=== PATIENT | female | born 1950 | race Caucasian/White ===

== ENCOUNTER 2020-12-24 17:23 | Inpatient (IN) | payer MEDICARE, BC ==
--- NOTE | 2020-12-24 17:34 | EDM.PDOC ---
<Matt Crockett - Last Filed: 12/24/20 18:56> ED HPI GENERAL MEDICAL PROBLEM - General Chief Complaint: Abdominal Pain Stated Complaint: EMS ARRIVAL Time Seen by Provider: 12/24/20 17:30 - History of Present Illness INITIAL COMMENTS - FREE TEXT/NARRATIVE: History of present illness: [] Patient been sick for for 5 days. She has nausea and vomiting started first. She is vomiting several times a day. She started having diarrhea yesterday and several episodes. Patient does not vomit any blood. She has diffuse abdominal pain that started in the upper abdomen as the lower abdomen. She has past history of diverticulitis. She responded to amoxicillin and Flagyl in the past. Review of systems: As per history of present illness and below otherwise all systems reviewed and negative. Past medical history: As per history of present illness and as reviewed below otherwise noncontributory. Surgical history: As per history of present illness and as reviewed below otherwise noncontributory. Social history: No reported history of drug or alcohol abuse. Family history: As per history of present illness and as reviewed below otherwise noncontributory. Physical exam: Constitutional - well developed, well-nourished and in no acute distress HEENT - normocephalic, no evidence of trauma - external nose and mouth normal - no mass in neck and no JVD - mucosae moist EYES - full EOM, PERRL, no icterus - no evidence of inflammation, injection, or drainage Respiratory - no respiratory distress, equal bilateral expansion, lungs clear to auscultation and no abnormal lung sounds Cardiovascular - Regular Rhythm with S1 and S2 appreciated and no murmur, gallop or rub. GI - abdomen soft without distension or organomegaly - normal bowel sounds - tender and guards both lower quadrants. Musculoskeletal no gross deformity of long bones or joints - no tenderness, swelling or edema Neurologic - Alert and oriented times four - CN II-XII grossly intact - motor sensory and coordination symmetrically normal Psychiatric - appropriate mood and affect with normal thought content Hematologic - No petechiae or purpura - mucosa appropriate color and sclera not pale - normal nail bed color and refill Integument - no rash or evidence of trauma - normal turgor Diagnostics: [] Therapeutics: [] Impression: [] Plan: [] Definitive disposition and diagnosis as appropriate pending reevaluation and review of above. abdomen Pain Score (Numeric/FACES): 9 - Related Data Allergies Allergy/AdvReac Type Severity Reaction Status Date / Time codeine Allergy Confusion Verified 12/24/20 17:31 lorazepam [From Ativan] Allergy Confusion Verified 12/24/20 17:31 meperidine [From Demerol] Allergy Confusion Verified 12/24/20 17:31 ondansetron [From Zofran] Allergy Itching Verified 12/24/20 17:31 Sulfa (Sulfonamide Allergy Rash Verified 12/24/20 17:31 Antibiotics) Home Meds: Home Meds Empagliflozin [Jardiance] 10 mg PO DAILY 12/24/20 [History] lisinopriL [Lisinopril] 5 mg PO DAILY 12/24/20 [History] Past Medical History HEENT History: Reports: Macular Degeneration Cardiovascular History: Reports: Hypertension Respiratory History: Reports: None Gastrointestinal History: Reports: Diverticulosis Genitourinary History: Reports: None 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: Musculoskeletal History: Reports: Fracture Neurological History: Reports: None Psychiatric History: Reports: None Endocrine/Metabolic History: Reports: Diabetes, Type II Hematologic History: Reports: None Immunologic History: Reports: None Oncologic (Cancer) History: Reports: None Dermatologic History: Reports: None - Infectious Disease History Infectious Disease History: Reports: Chicken Pox - Past Surgical History Head Surgeries/Procedures: Reports: None HEENT Surgical History: Reports: None Cardiovascular Surgical History: Reports: None Respiratory Surgical History: Reports: None GI Surgical History: Reports: Appendectomy Female Surgical History: Reports: Hysterectomy Musculoskeletal Surgical History: Reports: Other (See Below) Other Musculoskeletal Surgeries/Procedures:: 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 ED EXAM, GENERAL - Physical Exam Exam: See Below Free Text/Narrative:: My physical exam is in the HPI Course - Re-Assessments/Exams Free Text/Narrative Re-Assessment/Exam: 12/24/20 18:55 The patient was hypoxic when she fell asleep after the Dilaudid. Her oxygen saturation 98% on 2 L when she is stimulated. 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 Turned over to Dr. Rodriguez at the end of my shift. 12/24/20 18:56 Departure - Departure Disposition: Home, Self-Care 01 Clinical Impression: SBO (small bowel obstruction) Abdominal pain Qualifiers: Abdominal location: generalized Qualified Code(s): R10.84 - Generalized abdominal pain - Discharge Information Referrals: PCP,None [Primary Care Provider] - Forms: ED Department Discharge Sepsis Event Note (ED) - Evaluation Sepsis Screening Result: No Definite Risk <Keith Rodriguez - Last Filed: 12/24/20 20:04> Course - Vital Signs Last Recorded V/S: Last Vital Signs Temp 97.3 F 12/24/20 17:24 Pulse 67 12/24/20 19:57 Resp 13 12/24/20 19:57 BP 121/58 L 12/24/20 19:57 Pulse Ox 94 L 12/24/20 19:57 - Orders/Labs/Meds Orders: Active Orders 24 hr Category Date Time Status NPO Now [Nothing per Oral Now Diet] [DIET] Diet 12/25/20 Breakfast Ordered Saline Lock Insert [OM.PC] Stat Oth 12/24/20 17:41 Ordered Labs: Laboratory Tests 12/24/20 12/24/20 12/24/20 Range/Units 16:17 17:20 17:20 WBC 14.45 H (4.0-11.0) K/uL RBC 4.88 (4.30-5.90) M/uL Hgb 14.8 (12.0-16.0) g/dL Hct 41.9 (36.0-46.0) % MCV 85.9 (80.0-98.0) fL MCH 30.3 (27.0-32.0) pg MCHC 35.3 (31.0-37.0) g/dL RDW Std Deviation 41.3 (28.0-62.0) fl RDW Coeff of Brad 13 (11.0-15.0) % Plt Count 322 (150-400) K/uL MPV 9.70 (7.40-12.00) fL Neut % (Auto) 77.2 (48.0-80.0) % Lymph % (Auto) 16.5 (16.0-40.0) % [place] % (Auto) 5.5 (0.0-15.0) % Eos % (Auto) 0.7 (0.0-7.0) % Baso % (Auto) 0.1 (0.0-1.5) % Neut # (Auto) 11.2 H (1.4-5.7) K/uL Lymph # (Auto) 2.4 (0.6-2.4) K/uL [place] # (Auto) 0.8 (0.0-0.8) K/uL Eos # (Auto) 0.1 (0.0-0.7) K/uL Baso # (Auto) 0.0 (0.0-0.1) K/uL Nucleated RBC % 0.0 /100WBC Nucleated RBCs # 0 K/uL Sodium 138 (136-145) mmol/L Potassium 3.2 L (3.5-5.1) mmol/L Chloride 98 (98-107) mmol/L Carbon Dioxide 26.3 (21.0-32.0) mmol/L BUN 20 H (7.0-18.0) mg/dL Creatinine 0.7 (0.6-1.0) mg/dL Est Cr Clr Drug Dosing 60.98 mL/min Estimated GFR (MDRD) > 60.0 ml/min Glucose 169 H (74-106) mg/dL Lactic Acid 1.3 (0.4-2.0) mmol/L Calcium 9.3 (8.5-10.1) mg/dL Total Bilirubin 1.0 (0.2-1.0) mg/dL AST 17 (15-37) IU/L ALT 24 (14-63) IU/L Alkaline Phosphatase 117 H (46-116) U/L Total Protein 8.0 (6.4-8.2) g/dL Albumin 4.1 (3.4-5.0) g/dL Globulin 3.9 (2.6-4.0) g/dL Albumin/Globulin Ratio 1.1 (0.9-1.6) Lipase 87 (73-393) U/L Urine Color Urine Appearance Urine pH (5.0-8.0) Ur Specific [place] (1.001-1.035) Urine Protein (NEGATIVE) mg/dL Urine Glucose (UA) (NEGATIVE) mg/dL Urine Ketones (NEGATIVE) mg/dL Urine Occult Blood (NEGATIVE) Urine Nitrite (NEGATIVE) Urine Bilirubin (NEGATIVE) Urine Urobilinogen (<2.0) EU/dL Ur Leukocyte Esterase (NEGATIVE) SARS-CoV-2 RNA (RIC) (NEGATIVE) 12/24/20 12/24/20 Range/Units 18:04 19:41 WBC (4.0-11.0) K/uL RBC (4.30-5.90) M/uL Hgb (12.0-16.0) g/dL Hct (36.0-46.0) % MCV (80.0-98.0) fL MCH (27.0-32.0) pg MCHC (31.0-37.0) g/dL RDW Std Deviation (28.0-62.0) fl RDW Coeff of Brad (11.0-15.0) % Plt Count (150-400) K/uL MPV (7.40-12.00) fL Neut % (Auto) (48.0-80.0) % Lymph % (Auto) (16.0-40.0) % [place] % (Auto) (0.0-15.0) % Eos % (Auto) (0.0-7.0) % Baso % (Auto) (0.0-1.5) % Neut # (Auto) (1.4-5.7) K/uL Lymph # (Auto) (0.6-2.4) K/uL [place] # (Auto) (0.0-0.8) K/uL Eos # (Auto) (0.0-0.7) K/uL Baso # (Auto) (0.0-0.1) K/uL Nucleated RBC % /100WBC Nucleated RBCs # K/uL Sodium (136-145) mmol/L Potassium (3.5-5.1) mmol/L Chloride (98-107) mmol/L Carbon Dioxide (21.0-32.0) mmol/L BUN (7.0-18.0) mg/dL Creatinine (0.6-1.0) mg/dL Est Cr Clr Drug Dosing mL/min Estimated GFR (MDRD) ml/min Glucose (74-106) mg/dL Lactic Acid (0.4-2.0) mmol/L Calcium (8.5-10.1) mg/dL Total Bilirubin (0.2-1.0) mg/dL AST (15-37) IU/L ALT (14-63) IU/L Alkaline Phosphatase (46-116) U/L Total Protein (6.4-8.2) g/dL Albumin (3.4-5.0) g/dL Globulin (2.6-4.0) g/dL Albumin/Globulin Ratio (0.9-1.6) Lipase (73-393) U/L Urine Color YELLOW Urine Appearance CLEAR Urine pH 6.0 (5.0-8.0) Ur Specific [place] 1.010 (1.001-1.035) Urine Protein NEGATIVE (NEGATIVE) mg/dL Urine Glucose (UA) NEGATIVE (NEGATIVE) mg/dL Urine Ketones 15 H (NEGATIVE) mg/dL Urine Occult Blood NEGATIVE (NEGATIVE) Urine Nitrite NEGATIVE (NEGATIVE) Urine Bilirubin NEGATIVE (NEGATIVE) Urine Urobilinogen 0.2 (<2.0) EU/dL Ur Leukocyte Esterase NEGATIVE (NEGATIVE) SARS-CoV-2 RNA (RIC) NEGATIVE (NEGATIVE) Meds: Medications Discontinued Medications Generic Name Dose Route Start Last Admin Trade Name Anshu PRN Reason Stop Dose Admin Hydromorphone HCl 1 mg 12/24/20 17:42 12/24/20 17:52 Hydromorphone 2 Mg/Ml Syringe IVPUSH 12/24/20 17:43 1 mg ONETIME ONE Administration Sodium Chloride 1,000 mls @ 1,000 mls/hr 12/24/20 17:42 12/24/20 17:54 Normal Saline IV 12/24/20 18:41 1,000 mls/hr .Bolus ONE Administration Iopamidol 100 ml 12/24/20 18:55 12/24/20 18:56 Iopamidol 755 Mg/Ml 500 Ml Multipack Bottle IVPUSH 12/24/20 18:56 100 ml ONETIME STA Administration Metoclopramide HCl 10 mg 12/24/20 17:43 12/24/20 17:50 Metoclopramide 10 Mg/2 Ml Sdv IVPUSH 12/24/20 17:44 10 mg ONETIME ONE Administration Sodium Chloride 10 ml 12/24/20 17:41 12/24/20 17:54 Sodium Chloride 0.9% 10 Ml Syringe FLUSH 10 ml ASDIRECTED PRN Administration Keep Vein Open Sodium Chloride 2.5 ml 12/24/20 17:41 12/24/20 17:53 Sodium Chloride 0.9% 2.5 Ml Syringe FLUSH 2.5 ml ASDIRECTED PRN Administration Keep Vein Open - Re-Assessments/Exams Free Text/Narrative Re-Assessment/Exam: 12/24/20 20:03 CT scan with possible early SBO. I did communicate this with surgeon on-call Dr. Felipe. Since patient is still passing gas and with diarrhea recommends against NG tube at this point. Will admit for observation under hospitalist Dr. Felipe. Departure - Departure Time of Disposition: 20:03 Condition: Good Sepsis Event Note (ED) - Focused Exam Vital Signs: Vital Signs Temp Pulse Resp BP Pulse Ox 12/24/20 19:57 67 13 121/58 L 94 L 12/24/20 18:40 70 14 125/55 L 97 12/24/20 17:24 97.3 F 75 18 170/83 H 93 L - My Orders Last 24 Hours: My Active Orders 12/25/20 Breakfast NPO Now [Nothing per Oral Now Diet] [DIET] - Assessment/Plan Last 24 Hours: My Active Orders 12/25/20 Breakfast NPO Now [Nothing per Oral Now Diet] [DIET]
[2020-12-24] MEDS ORDERED: Sodium Chloride 0.9% 2.5 ML Syringe FLUSH PRN (17:41)
[2020-12-24] MEDS ORDERED: Sodium Chloride 0.9% 10 ML Syringe FLUSH PRN (17:41)
[2020-12-24] MEDS ORDERED: Sodium Chloride 0.9% 1,000 ML IV ONE ×2 (17:42→20:17)
[2020-12-24] MEDS ORDERED: HYDROmorphone 2 MG/ML Syringe IVPUSH ONE (17:42)
[2020-12-24] MEDS ORDERED: Metoclopramide 10 MG/2 ML SDV IVPUSH ONE (17:43)
[2020-12-24 18:17] LABS: BLOOD UREA NITROGEN,BUN 20 mg/dL (7.0-18.0); CARBON DIOXIDE,CO2 26.3 mmol/L (21.0-32.0); CHLORIDE,CL 98 mmol/L (98-107); GLUCOSE RANDOM 169 mg/dL (74-106); LIPASE 87 U/L (73-393); POTASSIUM,K 3.2 mmol/L (3.5-5.1); SODIUM,NA 138 mmol/L (136-145)
[2020-12-24] MEDS ORDERED: Iopamidol 755 MG/ML 500 ML Multipack Bottle IVPUSH STA (18:55)
--- NOTE | 2020-12-24 19:41 | CT ---
INDICATION: Nausea, vomiting and diarrhea. History of recurrent diverticulitis. TECHNIQUE: Axial images were obtained from the diaphragm to the pubic symphysis. Reformats were obtained in the coronal and sagittal plane. IV Contrast: 100 cc Isovue 370 Oral Contrast: None COMPARISON: None. FINDINGS: Lower chest: Bilateral breast implants. Trace discoid atelectasis right middle lobe. Liver: Diffusely decreased density without focal lesion. Gallbladder and bile ducts: Unremarkable. No stones or inflammation. No biliary dilatation. Spleen: Unremarkable. Normal in size without mass. Pancreas: Unremarkable. No mass or inflammation. Adrenal glands: Unremarkable. No nodules. Kidneys: Symmetric renal enhancement without hydronephrosis. Likely peripelvic cysts on the left with subcentimeter hypodensities within the right kidney which are too small for characterization although visually likely represent renal cysts. Vasculature: Atherosclerosis without abdominal aortic aneurysm. GI tract: The stomach is unremarkable. There are multiple dilated loops of proximal to mid small bowel with decompression of the distal small bowel. Transition is somewhat gradual with small amount of free fluid noted within the pelvis. Colon is decompressed. Mild colonic diverticulosis. Pelvis: Status post hysterectomy. Bones: Unremarkable for age. IMPRESSION: 1. Dilated loops of proximal to mid small bowel with decompressed distal small bowel suggesting a low-grade small bowel obstruction. Associated small amount of fluid within the pelvis. 2. Colonic diverticulosis. 3. Status post hysterectomy. Please note that all CT scans at this facility use dose modulation, iterative reconstruction, and/or weight-based dosing when appropriate to reduce radiation dose to as low as reasonably achievable. Dictated by Graham Shukla MD @ 12/24/2020 7:39:30 PM (Electronically Signed)
[2020-12-24] MEDS ORDERED: HYDROmorphone 1 MG/ML Syringe IVPUSH PRN (21:58)
--- NOTE | 2020-12-24 23:46 | PCM.HP.2 ---
H&P History of Present Illness - General Date of Service: 12/24/20 Admit Problem/Dx: Admission Diagnosis/Problem Admission Diagnosis/Problem Abdominal pain - History of Present Illness Initial Comments - Free Text/Narative: 70 yo female with pmh of DM and HTN who presented with four day history of diarrhea, nausea and abdominal pain. Patient describes the abdominal pain as diffuse burning across mid to lower abdomen. Patient denies and blood in stool or vomit. She denies any fevers or shortness of breath. CT scan of abdomen reported multiple dialated loops of small bowel suggestive of possible low grade small bowel obstruction abdomen Pain Score (Numeric/FACES): 9 - Related Data Allergies/Adverse Reactions: Allergies Allergy/AdvReac Type Severity Reaction Status Date / Time codeine Allergy Confusion Verified 12/24/20 17:31 lorazepam [From Ativan] Allergy Confusion Verified 12/24/20 17:31 meperidine [From Demerol] Allergy Confusion Verified 12/24/20 17:31 ondansetron [From Zofran] Allergy Itching Verified 12/24/20 17:31 Sulfa (Sulfonamide Allergy Rash Verified 12/24/20 17:31 Antibiotics) Home Medications: Home Meds Empagliflozin [Jardiance] 10 mg PO DAILY 12/24/20 [History] lisinopriL [Lisinopril] 5 mg PO DAILY 12/24/20 [History] Past Medical History HEENT History: Reports: Hard of Hearing, Macular Degeneration Cardiovascular History: Reports: Hypertension Respiratory History: Reports: None Gastrointestinal History: Reports: Diverticulosis Genitourinary History: Reports: None 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 History: Reports: Fracture Neurological History: Reports: None Psychiatric History: Reports: None Endocrine/Metabolic History: Reports: Diabetes, Type II Hematologic History: Reports: None Immunologic History: Reports: None Oncologic (Cancer) History: Reports: None Dermatologic History: Reports: None - Infectious Disease History Infectious Disease History: Reports: Chicken Pox - Past Surgical History Head Surgeries/Procedures: Reports: None HEENT Surgical History: Reports: None Cardiovascular Surgical History: Reports: None Respiratory Surgical History: Reports: None GI Surgical History: Reports: Appendectomy Female Surgical History: Reports: Hysterectomy Musculoskeletal Surgical History: Reports: Other (See Below) Other Musculoskeletal Surgeries/Procedures:: 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 Exam - Exam Exam: See Below - Vital Signs Vital Signs: Last Vital Signs Temp 36.3 C 12/24/20 22:00 Pulse 73 12/24/20 22:00 Resp 16 12/24/20 22:00 BP 145/70 H 12/24/20 22:00 Pulse Ox 93 L 12/24/20 22:00 Weight: 74.117 kg - Exam General: Alert, Oriented HEENT: Mucosa Moist & [place] Lungs: Clear to Auscultation, Normal Respiratory Effort Cardiovascular: Regular Rate, Regular Rhythm GI/Abdominal Exam: Normal Bowel Sounds, Soft, Non-Tender, No Distention Extremities: Non-Tender, No Pedal Edema Skin: Warm, Dry, Intact Neurological: No: Focal Deficit - Patient Data Lab Results Last 24 hrs: Laboratory Results - last 24 hr 12/24/20 12/24/20 12/24/20 Range/Units 16:17 17:20 17:20 WBC 14.45 H (4.0-11.0) K/uL RBC 4.88 (4.30-5.90) M/uL Hgb 14.8 (12.0-16.0) g/dL Hct 41.9 (36.0-46.0) % MCV 85.9 (80.0-98.0) fL MCH 30.3 (27.0-32.0) pg MCHC 35.3 (31.0-37.0) g/dL RDW Std Deviation 41.3 (28.0-62.0) fl RDW Coeff of Brad 13 (11.0-15.0) % Plt Count 322 (150-400) K/uL MPV 9.70 (7.40-12.00) fL Neut % (Auto) 77.2 (48.0-80.0) % Lymph % (Auto) 16.5 (16.0-40.0) % [place] % (Auto) 5.5 (0.0-15.0) % Eos % (Auto) 0.7 (0.0-7.0) % Baso % (Auto) 0.1 (0.0-1.5) % Neut # (Auto) 11.2 H (1.4-5.7) K/uL Lymph # (Auto) 2.4 (0.6-2.4) K/uL [place] # (Auto) 0.8 (0.0-0.8) K/uL Eos # (Auto) 0.1 (0.0-0.7) K/uL Baso # (Auto) 0.0 (0.0-0.1) K/uL Nucleated RBC % 0.0 /100WBC Nucleated RBCs # 0 K/uL Sodium 138 (136-145) mmol/L Potassium 3.2 L (3.5-5.1) mmol/L Chloride 98 (98-107) mmol/L Carbon Dioxide 26.3 (21.0-32.0) mmol/L BUN 20 H (7.0-18.0) mg/dL Creatinine 0.7 (0.6-1.0) mg/dL Est Cr Clr Drug Dosing 60.98 mL/min Estimated GFR (MDRD) > 60.0 ml/min Glucose 169 H (74-106) mg/dL Lactic Acid 1.3 (0.4-2.0) mmol/L Calcium 9.3 (8.5-10.1) mg/dL Total Bilirubin 1.0 (0.2-1.0) mg/dL AST 17 (15-37) IU/L ALT 24 (14-63) IU/L Alkaline Phosphatase 117 H (46-116) U/L Total Protein 8.0 (6.4-8.2) g/dL Albumin 4.1 (3.4-5.0) g/dL Globulin 3.9 (2.6-4.0) g/dL Albumin/Globulin Ratio 1.1 (0.9-1.6) Lipase 87 (73-393) U/L Urine Color Urine Appearance Urine pH (5.0-8.0) Ur Specific [place] (1.001-1.035) Urine Protein (NEGATIVE) mg/dL Urine Glucose (UA) (NEGATIVE) mg/dL Urine Ketones (NEGATIVE) mg/dL Urine Occult Blood (NEGATIVE) Urine Nitrite (NEGATIVE) Urine Bilirubin (NEGATIVE) Urine Urobilinogen (<2.0) EU/dL Ur Leukocyte Esterase (NEGATIVE) SARS-CoV-2 RNA (RIC) (NEGATIVE) 12/24/20 12/24/20 Range/Units 18:04 19:41 WBC (4.0-11.0) K/uL RBC (4.30-5.90) M/uL Hgb (12.0-16.0) g/dL Hct (36.0-46.0) % MCV (80.0-98.0) fL MCH (27.0-32.0) pg MCHC (31.0-37.0) g/dL RDW Std Deviation (28.0-62.0) fl RDW Coeff of Brad (11.0-15.0) % Plt Count (150-400) K/uL MPV (7.40-12.00) fL Neut % (Auto) (48.0-80.0) % Lymph % (Auto) (16.0-40.0) % [place] % (Auto) (0.0-15.0) % Eos % (Auto) (0.0-7.0) % Baso % (Auto) (0.0-1.5) % Neut # (Auto) (1.4-5.7) K/uL Lymph # (Auto) (0.6-2.4) K/uL [place] # (Auto) (0.0-0.8) K/uL Eos # (Auto) (0.0-0.7) K/uL Baso # (Auto) (0.0-0.1) K/uL Nucleated RBC % /100WBC Nucleated RBCs # K/uL Sodium (136-145) mmol/L Potassium (3.5-5.1) mmol/L Chloride (98-107) mmol/L Carbon Dioxide (21.0-32.0) mmol/L BUN (7.0-18.0) mg/dL Creatinine (0.6-1.0) mg/dL Est Cr Clr Drug Dosing mL/min Estimated GFR (MDRD) ml/min Glucose (74-106) mg/dL Lactic Acid (0.4-2.0) mmol/L Calcium (8.5-10.1) mg/dL Total Bilirubin (0.2-1.0) mg/dL AST (15-37) IU/L ALT (14-63) IU/L Alkaline Phosphatase (46-116) U/L Total Protein (6.4-8.2) g/dL Albumin (3.4-5.0) g/dL Globulin (2.6-4.0) g/dL Albumin/Globulin Ratio (0.9-1.6) Lipase (73-393) U/L Urine Color YELLOW Urine Appearance CLEAR Urine pH 6.0 (5.0-8.0) Ur Specific [place] 1.010 (1.001-1.035) Urine Protein NEGATIVE (NEGATIVE) mg/dL Urine Glucose (UA) NEGATIVE (NEGATIVE) mg/dL Urine Ketones 15 H (NEGATIVE) mg/dL Urine Occult Blood NEGATIVE (NEGATIVE) Urine Nitrite NEGATIVE (NEGATIVE) Urine Bilirubin NEGATIVE (NEGATIVE) Urine Urobilinogen 0.2 (<2.0) EU/dL Ur Leukocyte Esterase NEGATIVE (NEGATIVE) SARS-CoV-2 RNA (RIC) NEGATIVE (NEGATIVE) Result Diagrams: 12/24/20 17:20 12/24/20 17:20 Sepsis Event Note - Evaluation Sepsis Screening Result: No Definite Risk - Focused Exam Vital Signs: Vital Signs Temp Pulse Resp BP Pulse Ox 12/24/20 22:00 36.3 C 73 16 145/70 H 93 L 12/24/20 20:51 68 10 L 140/63 93 L 12/24/20 19:57 67 13 121/58 L 94 L 12/24/20 18:40 70 14 125/55 L 97 12/24/20 17:24 36.3 C 75 18 170/83 H 93 L - Problem List (1) SBO (small bowel obstruction) SNOMED Code(s): 586658439 ICD Code: K56.609 - UNSP INTESTNL OBST, UNSP TO PARTIAL VERSUS COMPLETE OBST Status: Acute Current Visit: Yes Problem List Initiated/Reviewed/Updated: Yes Orders Last 24hrs: Active Orders 24 hr Category Date Time Status Patient Status [ADT] Routine ADT 12/24/20 20:05 Active Accu Check [Blood Glucose Check, Bedside] [RC] Q6H Care 12/25/20 00:00 Active Antiembolic Devices [RC] PER UNIT ROUTINE Care 12/24/20 23:30 Ordered Oxygen Therapy [RC] PRN Care 12/24/20 23:29 Ordered Up ad [place] [RC] ASDIRECTED Care 12/24/20 23:29 Ordered VTE/DVT Education [RC] PER UNIT ROUTINE Care 12/24/20 23:29 Ordered Vital Signs [RC] Q4H Care 12/24/20 23:29 Ordered NPO [Nothing Per Oral Diet] [DIET] Diet 12/25/20 Breakfast Active C DIFFICILE AG/TOXIN W/REFLEX [RM] Routine Lab 12/24/20 23:30 Ordered CBC WITH AUTO DIFF [HEME] AM Lab 12/25/20 05:11 Ordered COMPREHENSIVE METABOLIC PN,CMP [CHEM] AM Lab 12/25/20 05:11 Ordered STOOL CULTURE/SHIGA TOXIN [MREF] Routine Lab 12/24/20 23:30 Ordered HYDROmorphone [Dilaudid] Med 12/24/20 21:58 Active 1 mg IVPUSH Q3H PRN Metoclopramide [Reglan] Med 12/24/20 21:59 Active 10 mg IVPUSH Q6H PRN Sodium Chloride 0.9% [Normal Saline] 1,000 ml Med 12/24/20 22:00 Active IV ASDIRECTED Saline Lock Insert [OM.PC] Stat Oth 12/24/20 17:41 Ordered Sequential Compression Device [OM.PC] Per Unit Routine Oth 12/24/20 23:30 Ordered Resuscitation Status Routine Resus Stat 12/24/20 23:29 Ordered Medication Orders Hydromorphone HCl (Hydromorphone 1 Mg/Ml Syringe) 1 mg IVPUSH Q3H PRN PRN Reason: Pain Sodium Chloride (Normal Saline) 1,000 mls @ 125 mls/hr IV ASDIRECTED TAMMY Metoclopramide HCl (Metoclopramide 10 Mg/2 Ml Sdv) 10 mg IVPUSH Q6H PRN PRN Reason: Nausea/Vomiting Assessment/Plan Comment:: 70 yo female admitted for enteritis with partial small bowel obstruction. We will treat with IV fluids and bowel rest.
[2020-12-25 06:46] LABS: BLOOD UREA NITROGEN,BUN 17 mg/dL (7.0-18.0); CARBON DIOXIDE,CO2 24.2 mmol/L (21.0-32.0); CHLORIDE,CL 104 mmol/L (98-107); GLUCOSE RANDOM 162 mg/dL (74-106); POTASSIUM,K 3.2 mmol/L (3.5-5.1); SODIUM,NA 140 mmol/L (136-145)
[2020-12-25] MEDS: Sodium Chloride 0.9% 1,000 ML IV SCH ×2 (08:25→18:35)
[2020-12-25] MEDS ORDERED: 50% Dextrose in Water 50 ML Syringe IVPUSH PRN (11:12)
[2020-12-25] MEDS ORDERED: Glucagon,Human Recombinant 1 MG Vial IM PRN (11:12)
[2020-12-25] MEDS ORDERED: Sodium Chloride 0.9% with KCl 1,000 ML IV SCH (11:15)
[2020-12-25] MEDS ORDERED: Lisinopril 5 MG Tab PO SCH (11:15)
[2020-12-25] MEDS: Metoclopramide 10 MG/2 ML SDV IVPUSH PRN (11:26)
[2020-12-25] MEDS: Insulin Aspart 100 Units/ML 3 ML Pen SUBCUT SCH ×2 (11:49→18:31)
--- NOTE | 2020-12-25 12:26 | PCM.PN ---
- General Info Date of Service: 12/25/20 - Review of Systems Systems Review Comment:: abdominal pain improving, no diarrhea, no nausea - Patient Data Vitals - Most Recent: Last Vital Signs Temp 36.4 C 12/25/20 11:00 Pulse 73 12/25/20 11:00 Resp 18 12/25/20 11:00 BP 167/61 H 12/25/20 11:00 Pulse Ox 95 12/25/20 11:00 Weight - Most Recent: 75.568 kg I&O - Last 24 Hours: Intake & Output 12/24/20 12/25/20 12/25/20 22:59 06:59 14:59 Intake Total 120 Output Total 400 Balance -280 Lab Results Last 24 Hours: Laboratory Results - last 24 hr 12/24/20 12/24/20 12/24/20 Range/Units 16:17 17:20 17:20 WBC 14.45 H (4.0-11.0) K/uL RBC 4.88 (4.30-5.90) M/uL Hgb 14.8 (12.0-16.0) g/dL Hct 41.9 (36.0-46.0) % MCV 85.9 (80.0-98.0) fL MCH 30.3 (27.0-32.0) pg MCHC 35.3 (31.0-37.0) g/dL RDW Std Deviation 41.3 (28.0-62.0) fl RDW Coeff of Brad 13 (11.0-15.0) % Plt Count 322 (150-400) K/uL MPV 9.70 (7.40-12.00) fL Neut % (Auto) 77.2 (48.0-80.0) % Lymph % (Auto) 16.5 (16.0-40.0) % [place] % (Auto) 5.5 (0.0-15.0) % Eos % (Auto) 0.7 (0.0-7.0) % Baso % (Auto) 0.1 (0.0-1.5) % Neut # (Auto) 11.2 H (1.4-5.7) K/uL Lymph # (Auto) 2.4 (0.6-2.4) K/uL [place] # (Auto) 0.8 (0.0-0.8) K/uL Eos # (Auto) 0.1 (0.0-0.7) K/uL Baso # (Auto) 0.0 (0.0-0.1) K/uL Nucleated RBC % 0.0 /100WBC Nucleated RBCs # 0 K/uL Sodium 138 (136-145) mmol/L Potassium 3.2 L (3.5-5.1) mmol/L Chloride 98 (98-107) mmol/L Carbon Dioxide 26.3 (21.0-32.0) mmol/L BUN 20 H (7.0-18.0) mg/dL Creatinine 0.7 (0.6-1.0) mg/dL Est Cr Clr Drug Dosing 60.98 mL/min Estimated GFR (MDRD) > 60.0 ml/min Glucose 169 H (74-106) mg/dL POC Glucose (70-99) mg/dL Lactic Acid 1.3 (0.4-2.0) mmol/L Calcium 9.3 (8.5-10.1) mg/dL Total Bilirubin 1.0 (0.2-1.0) mg/dL AST 17 (15-37) IU/L ALT 24 (14-63) IU/L Alkaline Phosphatase 117 H (46-116) U/L Total Protein 8.0 (6.4-8.2) g/dL Albumin 4.1 (3.4-5.0) g/dL Globulin 3.9 (2.6-4.0) g/dL Albumin/Globulin Ratio 1.1 (0.9-1.6) Lipase 87 (73-393) U/L Urine Color Urine Appearance Urine pH (5.0-8.0) Ur Specific [place] (1.001-1.035) Urine Protein (NEGATIVE) mg/dL Urine Glucose (UA) (NEGATIVE) mg/dL Urine Ketones (NEGATIVE) mg/dL Urine Occult Blood (NEGATIVE) Urine Nitrite (NEGATIVE) Urine Bilirubin (NEGATIVE) Urine Urobilinogen (<2.0) EU/dL Ur Leukocyte Esterase (NEGATIVE) SARS-CoV-2 RNA (RIC) (NEGATIVE) 12/24/20 12/24/20 12/25/20 Range/Units 18:04 19:41 05:42 WBC 9.30 (4.0-11.0) K/uL RBC 4.16 L (4.30-5.90) M/uL Hgb 12.4 (12.0-16.0) g/dL Hct 36.2 (36.0-46.0) % MCV 87.0 (80.0-98.0) fL MCH 29.8 (27.0-32.0) pg MCHC 34.3 (31.0-37.0) g/dL RDW Std Deviation 42.3 (28.0-62.0) fl RDW Coeff of Brad 13 (11.0-15.0) % Plt Count 252 (150-400) K/uL MPV 9.80 (7.40-12.00) fL Neut % (Auto) 78.0 (48.0-80.0) % Lymph % (Auto) 13.9 L (16.0-40.0) % Cow[place] % (Auto) 7.2 (0.0-15.0) % Eos % (Auto) 0.8 (0.0-7.0) % Baso % (Auto) 0.1 (0.0-1.5) % Neut # (Auto) 7.3 H (1.4-5.7) K/uL Lymph # (Auto) 1.3 (0.6-2.4) K/uL [place] # (Auto) 0.7 (0.0-0.8) K/uL Eos # (Auto) 0.1 (0.0-0.7) K/uL Baso # (Auto) 0.0 (0.0-0.1) K/uL Nucleated RBC % 0.0 /100WBC Nucleated RBCs # 0 K/uL Sodium (136-145) mmol/L Potassium (3.5-5.1) mmol/L Chloride (98-107) mmol/L Carbon Dioxide (21.0-32.0) mmol/L BUN (7.0-18.0) mg/dL Creatinine (0.6-1.0) mg/dL Est Cr Clr Drug Dosing mL/min Estimated GFR (MDRD) ml/min Glucose (74-106) mg/dL POC Glucose (70-99) mg/dL Lactic Acid (0.4-2.0) mmol/L Calcium (8.5-10.1) mg/dL Total Bilirubin (0.2-1.0) mg/dL AST (15-37) IU/L ALT (14-63) IU/L Alkaline Phosphatase (46-116) U/L Total Protein (6.4-8.2) g/dL Albumin (3.4-5.0) g/dL Globulin (2.6-4.0) g/dL Albumin/Globulin Ratio (0.9-1.6) Lipase (73-393) U/L Urine Color YELLOW Urine Appearance CLEAR Urine pH 6.0 (5.0-8.0) Ur Specific [place] 1.010 (1.001-1.035) Urine Protein NEGATIVE (NEGATIVE) mg/dL Urine Glucose (UA) NEGATIVE (NEGATIVE) mg/dL Urine Ketones 15 H (NEGATIVE) mg/dL Urine Occult Blood NEGATIVE (NEGATIVE) Urine Nitrite NEGATIVE (NEGATIVE) Urine Bilirubin NEGATIVE (NEGATIVE) Urine Urobilinogen 0.2 (<2.0) EU/dL Ur Leukocyte Esterase NEGATIVE (NEGATIVE) SARS-CoV-2 RNA (RIC) NEGATIVE (NEGATIVE) 12/25/20 12/25/20 12/25/20 Range/Units 05:42 05:57 11:45 WBC (4.0-11.0) K/uL RBC (4.30-5.90) M/uL Hgb (12.0-16.0) g/dL Hct (36.0-46.0) % MCV (80.0-98.0) fL MCH (27.0-32.0) pg MCHC (31.0-37.0) g/dL RDW Std Deviation (28.0-62.0) fl RDW Coeff of Brad (11.0-15.0) % Plt Count (150-400) K/uL MPV (7.40-12.00) fL Neut % (Auto) (48.0-80.0) % Lymph % (Auto) (16.0-40.0) % [place] % (Auto) (0.0-15.0) % Eos % (Auto) (0.0-7.0) % Baso % (Auto) (0.0-1.5) % Neut # (Auto) (1.4-5.7) K/uL Lymph # (Auto) (0.6-2.4) K/uL [place] # (Auto) (0.0-0.8) K/uL Eos # (Auto) (0.0-0.7) K/uL Baso # (Auto) (0.0-0.1) K/uL Nucleated RBC % /100WBC Nucleated RBCs # K/uL Sodium 140 (136-145) mmol/L Potassium 3.2 L (3.5-5.1) mmol/L Chloride 104 (98-107) mmol/L Carbon Dioxide 24.2 (21.0-32.0) mmol/L BUN 17 (7.0-18.0) mg/dL Creatinine 0.5 L (0.6-1.0) mg/dL Est Cr Clr Drug Dosing 85.37 mL/min Estimated GFR (MDRD) > 60.0 ml/min Glucose 162 H (74-106) mg/dL POC Glucose 147 H 141 H (70-99) mg/dL Lactic Acid (0.4-2.0) mmol/L Calcium 8.2 L (8.5-10.1) mg/dL Total Bilirubin 0.8 (0.2-1.0) mg/dL AST 18 (15-37) IU/L ALT 26 (14-63) IU/L Alkaline Phosphatase 90 (46-116) U/L Total Protein 6.5 (6.4-8.2) g/dL Albumin 3.4 (3.4-5.0) g/dL Globulin 3.1 (2.6-4.0) g/dL Albumin/Globulin Ratio 1.1 (0.9-1.6) Lipase (73-393) U/L Urine Color Urine Appearance Urine pH (5.0-8.0) Ur Specific [place] (1.001-1.035) Urine Protein (NEGATIVE) mg/dL Urine Glucose (UA) (NEGATIVE) mg/dL Urine Ketones (NEGATIVE) mg/dL Urine Occult Blood (NEGATIVE) Urine Nitrite (NEGATIVE) Urine Bilirubin (NEGATIVE) Urine Urobilinogen (<2.0) EU/dL Ur Leukocyte Esterase (NEGATIVE) SARS-CoV-2 RNA (RIC) (NEGATIVE) Med Orders - Current: Current Medications Dextrose/Water (50% Dextrose In Water 50 Ml Syringe) 50 ml IVPUSH ASDIRECTED PRN PRN Reason: Hypoglycemia Glucagon (Glucagon,Human Recombinant 1 Mg Vial) 1 mg IM ASDIRECTED PRN PRN Reason: Hypoglycemia Hydromorphone HCl (Hydromorphone 1 Mg/Ml Syringe) 1 mg IVPUSH Q3H PRN PRN Reason: Pain Sodium Chloride (Normal Saline) 1,000 mls @ 125 mls/hr IV ASDIRECTED [facility] Last Admin: 12/25/20 08:25 Dose: 125 mls/hr Documented by: Potassium Chloride/Sodium Chloride (Normal Saline With 40 Meq Kcl) 1,000 mls @ 125 mls/hr IV ASDIRECTED [facility] Last Admin: 12/25/20 11:27 Dose: 125 mls/hr Documented by: Insulin Aspart (Insulin Aspart 100 Units/Ml 3 Ml Pen) 0 unit SUBCUT TIDAC [facility]; Protocol Last Admin: 12/25/20 11:49 Dose: Not Given Documented by: Lisinopril (Lisinopril 5 Mg Tab) 5 mg PO BEDTIME TAMMY Metoclopramide HCl (Metoclopramide 10 Mg/2 Ml Sdv) 10 mg IVPUSH Q6H PRN PRN Reason: Nausea/Vomiting Last Admin: 12/25/20 11:26 Dose: 10 mg Documented by: Discontinued Medications Hydromorphone HCl (Hydromorphone 2 Mg/Ml Syringe) 1 mg IVPUSH ONETIME ONE Stop: 12/24/20 17:43 Last Admin: 12/24/20 17:52 Dose: 1 mg Documented by: Sodium Chloride (Normal Saline) 1,000 mls @ 1,000 mls/hr IV .Bolus ONE Stop: 12/24/20 18:41 Last Admin: 12/24/20 17:54 Dose: 1,000 mls/hr Documented by: Sodium Chloride (Normal Saline) 1,000 mls @ 100 mls/hr IV .Bolus ONE Stop: 12/25/20 06:16 Last Admin: 12/24/20 21:11 Dose: 100 mls/hr Documented by: Iopamidol (Iopamidol 755 Mg/Ml 500 Ml Multipack Bottle) 100 ml IVPUSH ONETIME STA Stop: 12/24/20 18:56 Last Admin: 12/24/20 18:56 Dose: 100 ml Documented by: Lisinopril (Lisinopril 5 Mg Tab) 5 mg PO DAILY TAMMY Metoclopramide HCl (Metoclopramide 10 Mg/2 Ml Sdv) 10 mg IVPUSH ONETIME ONE Stop: 12/24/20 17:44 Last Admin: 12/24/20 17:50 Dose: 10 mg Documented by: Sodium Chloride (Sodium Chloride 0.9% 10 Ml Syringe) 10 ml FLUSH ASDIRECTED PRN PRN Reason: Keep Vein Open Last Admin: 12/24/20 17:54 Dose: 10 ml Documented by: Sodium Chloride (Sodium Chloride 0.9% 2.5 Ml Syringe) 2.5 ml FLUSH ASDIRECTED PRN PRN Reason: Keep Vein Open Last Admin: 12/24/20 17:53 Dose: 2.5 ml Documented by: - Exam General: Alert, Oriented Lungs: Clear to Auscultation, Normal Respiratory Effort Cardiovascular: Regular Rate, Regular Rhythm GI/Abdominal Exam: Normal Bowel Sounds, Soft, Non-Tender Extremities: Non-Tender, No Pedal Edema Skin: Warm, Dry, Intact - Patient Data Lab Results Last 24 hrs: Laboratory Results - last 24 hr 12/24/20 12/24/20 12/24/20 Range/Units 16:17 17:20 17:20 WBC 14.45 H (4.0-11.0) K/uL RBC 4.88 (4.30-5.90) M/uL Hgb 14.8 (12.0-16.0) g/dL Hct 41.9 (36.0-46.0) % MCV 85.9 (80.0-98.0) fL MCH 30.3 (27.0-32.0) pg MCHC 35.3 (31.0-37.0) g/dL RDW Std Deviation 41.3 (28.0-62.0) fl RDW Coeff of Brad 13 (11.0-15.0) % Plt Count 322 (150-400) K/uL MPV 9.70 (7.40-12.00) fL Neut % (Auto) 77.2 (48.0-80.0) % Lymph % (Auto) 16.5 (16.0-40.0) % [place] % (Auto) 5.5 (0.0-15.0) % Eos % (Auto) 0.7 (0.0-7.0) % Baso % (Auto) 0.1 (0.0-1.5) % Neut # (Auto) 11.2 H (1.4-5.7) K/uL Lymph # (Auto) 2.4 (0.6-2.4) K/uL [place] # (Auto) 0.8 (0.0-0.8) K/uL Eos # (Auto) 0.1 (0.0-0.7) K/uL Baso # (Auto) 0.0 (0.0-0.1) K/uL Nucleated RBC % 0.0 /100WBC Nucleated RBCs # 0 K/uL Sodium 138 (136-145) mmol/L Potassium 3.2 L (3.5-5.1) mmol/L Chloride 98 (98-107) mmol/L Carbon Dioxide 26.3 (21.0-32.0) mmol/L BUN 20 H (7.0-18.0) mg/dL Creatinine 0.7 (0.6-1.0) mg/dL Est Cr Clr Drug Dosing 60.98 mL/min Estimated GFR (MDRD) > 60.0 ml/min Glucose 169 H (74-106) mg/dL POC Glucose (70-99) mg/dL Lactic Acid 1.3 (0.4-2.0) mmol/L Calcium 9.3 (8.5-10.1) mg/dL Total Bilirubin 1.0 (0.2-1.0) mg/dL AST 17 (15-37) IU/L ALT 24 (14-63) IU/L Alkaline Phosphatase 117 H (46-116) U/L Total Protein 8.0 (6.4-8.2) g/dL Albumin 4.1 (3.4-5.0) g/dL Globulin 3.9 (2.6-4.0) g/dL Albumin/Globulin Ratio 1.1 (0.9-1.6) Lipase 87 (73-393) U/L Urine Color Urine Appearance Urine pH (5.0-8.0) Ur Specific [place] (1.001-1.035) Urine Protein (NEGATIVE) mg/dL Urine Glucose (UA) (NEGATIVE) mg/dL Urine Ketones (NEGATIVE) mg/dL Urine Occult Blood (NEGATIVE) Urine Nitrite (NEGATIVE) Urine Bilirubin (NEGATIVE) Urine Urobilinogen (<2.0) EU/dL Ur Leukocyte Esterase (NEGATIVE) SARS-CoV-2 RNA (RIC) (NEGATIVE) 12/24/20 12/24/20 12/25/20 Range/Units 18:04 19:41 05:42 WBC 9.30 (4.0-11.0) K/uL RBC 4.16 L (4.30-5.90) M/uL Hgb 12.4 (12.0-16.0) g/dL Hct 36.2 (36.0-46.0) % MCV 87.0 (80.0-98.0) fL MCH 29.8 (27.0-32.0) pg MCHC 34.3 (31.0-37.0) g/dL RDW Std Deviation 42.3 (28.0-62.0) fl RDW Coeff of Brad 13 (11.0-15.0) % Plt Count 252 (150-400) K/uL MPV 9.80 (7.40-12.00) fL Neut % (Auto) 78.0 (48.0-80.0) % Lymph % (Auto) 13.9 L (16.0-40.0) % [place] % (Auto) 7.2 (0.0-15.0) % Eos % (Auto) 0.8 (0.0-7.0) % Baso % (Auto) 0.1 (0.0-1.5) % Neut # (Auto) 7.3 H (1.4-5.7) K/uL Lymph # (Auto) 1.3 (0.6-2.4) K/uL [place] # (Auto) 0.7 (0.0-0.8) K/uL Eos # (Auto) 0.1 (0.0-0.7) K/uL Baso # (Auto) 0.0 (0.0-0.1) K/uL Nucleated RBC % 0.0 /100WBC Nucleated RBCs # 0 K/uL Sodium (136-145) mmol/L Potassium (3.5-5.1) mmol/L Chloride (98-107) mmol/L Carbon Dioxide (21.0-32.0) mmol/L BUN (7.0-18.0) mg/dL Creatinine (0.6-1.0) mg/dL Est Cr Clr Drug Dosing mL/min Estimated GFR (MDRD) ml/min Glucose (74-106) mg/dL POC Glucose (70-99) mg/dL Lactic Acid (0.4-2.0) mmol/L Calcium (8.5-10.1) mg/dL Total Bilirubin (0.2-1.0) mg/dL AST (15-37) IU/L ALT (14-63) IU/L Alkaline Phosphatase (46-116) U/L Total Protein (6.4-8.2) g/dL Albumin (3.4-5.0) g/dL Globulin (2.6-4.0) g/dL Albumin/Globulin Ratio (0.9-1.6) Lipase (73-393) U/L Urine Color YELLOW Urine Appearance CLEAR Urine pH 6.0 (5.0-8.0) Ur Specific [place] 1.010 (1.001-1.035) Urine Protein NEGATIVE (NEGATIVE) mg/dL Urine Glucose (UA) NEGATIVE (NEGATIVE) mg/dL Urine Ketones 15 H (NEGATIVE) mg/dL Urine Occult Blood NEGATIVE (NEGATIVE) Urine Nitrite NEGATIVE (NEGATIVE) Urine Bilirubin NEGATIVE (NEGATIVE) Urine Urobilinogen 0.2 (<2.0) EU/dL Ur Leukocyte Esterase NEGATIVE (NEGATIVE) SARS-CoV-2 RNA (RIC) NEGATIVE (NEGATIVE) 12/25/20 12/25/20 12/25/20 Range/Units 05:42 05:57 11:45 WBC (4.0-11.0) K/uL RBC (4.30-5.90) M/uL Hgb (12.0-16.0) g/dL Hct (36.0-46.0) % MCV (80.0-98.0) fL MCH (27.0-32.0) pg MCHC (31.0-37.0) g/dL RDW Std Deviation (28.0-62.0) fl RDW Coeff of Brad (11.0-15.0) % Plt Count (150-400) K/uL MPV (7.40-12.00) fL Neut % (Auto) (48.0-80.0) % Lymph % (Auto) (16.0-40.0) % [place] % (Auto) (0.0-15.0) % Eos % (Auto) (0.0-7.0) % Baso % (Auto) (0.0-1.5) % Neut # (Auto) (1.4-5.7) K/uL Lymph # (Auto) (0.6-2.4) K/uL [place] # (Auto) (0.0-0.8) K/uL Eos # (Auto) (0.0-0.7) K/uL Baso # (Auto) (0.0-0.1) K/uL Nucleated RBC % /100WBC Nucleated RBCs # K/uL Sodium 140 (136-145) mmol/L Potassium 3.2 L (3.5-5.1) mmol/L Chloride 104 (98-107) mmol/L Carbon Dioxide 24.2 (21.0-32.0) mmol/L BUN 17 (7.0-18.0) mg/dL Creatinine 0.5 L (0.6-1.0) mg/dL Est Cr Clr Drug Dosing 85.37 mL/min Estimated GFR (MDRD) > 60.0 ml/min Glucose 162 H (74-106) mg/dL POC Glucose 147 H 141 H (70-99) mg/dL Lactic Acid (0.4-2.0) mmol/L Calcium 8.2 L (8.5-10.1) mg/dL Total Bilirubin 0.8 (0.2-1.0) mg/dL AST 18 (15-37) IU/L ALT 26 (14-63) IU/L Alkaline Phosphatase 90 (46-116) U/L Total Protein 6.5 (6.4-8.2) g/dL Albumin 3.4 (3.4-5.0) g/dL Globulin 3.1 (2.6-4.0) g/dL Albumin/Globulin Ratio 1.1 (0.9-1.6) Lipase (73-393) U/L Urine Color Urine Appearance Urine pH (5.0-8.0) Ur Specific [place] (1.001-1.035) Urine Protein (NEGATIVE) mg/dL Urine Glucose (UA) (NEGATIVE) mg/dL Urine Ketones (NEGATIVE) mg/dL Urine Occult Blood (NEGATIVE) Urine Nitrite (NEGATIVE) Urine Bilirubin (NEGATIVE) Urine Urobilinogen (<2.0) EU/dL Ur Leukocyte Esterase (NEGATIVE) SARS-CoV-2 RNA (RIC) (NEGATIVE) Result Diagrams: 12/25/20 05:42 12/25/20 05:42 Sepsis Event Note - Evaluation Sepsis Screening Result: No Definite Risk - Focused Exam Vital Signs: Vital Signs Temp Pulse Resp BP Pulse Ox Pulse Ox 12/25/20 11:00 36.4 C 73 18 167/61 H 95 12/25/20 07:54 96 12/25/20 07:51 69 96 12/25/20 07:30 70 86 L 12/25/20 07:00 36.9 C 73 18 118/64 96 12/25/20 03:29 36.6 C 81 18 157/69 H 92 L - Problem List & Annotations (1) SBO (small bowel obstruction) SNOMED Code(s): 719462632 Code(s): K56.609 - UNSP INTESTNL OBST, UNSP TO PARTIAL VERSUS COMPLETE OBST Status: Acute Current Visit: Yes - Problem List Review Problem List Initiated/Reviewed/Updated: Yes - My Orders Last 24 Hours: My Active Orders 12/24/20 21:58 HYDROmorphone [Dilaudid] 1 mg IVPUSH Q3H PRN 12/24/20 21:59 Metoclopramide [Reglan] 10 mg IVPUSH Q6H PRN 12/24/20 22:00 Sodium Chloride 0.9% [Normal Saline] 1,000 ml IV ASDIRECTED 12/24/20 23:29 Oxygen Therapy [RC] PRN Up ad Maliha [RC] ASDIRECTED VTE/DVT Education [RC] PER UNIT ROUTINE Vital Signs [RC] Q4H Resuscitation Status Routine 12/24/20 23:30 Antiembolic Devices [RC] PER UNIT ROUTINE C DIFFICILE AG/TOXIN W/REFLEX [RM] Routine STOOL CULTURE/SHIGA TOXIN [MREF] Routine Sequential Compression Device [OM.PC] Per Unit Routine 12/25/20 00:00 Accu Check [Blood Glucose Check, Bedside] [RC] Q6H 12/25/20 12:24 Accu Check [Blood Glucose Check, Bedside] [RC] QIDACANDBED - Plan Plan:: 70 yo female admitted for enteritis with partial small bowel obstruction. Enteritis: will advance to clear liquid diet DM: will place on sliding scale insulin
[2020-12-25] MEDS: Lisinopril 5 MG Tab PO SCH (20:23)
[2020-12-25] MEDS: Calcium Carbonate 500 MG Tab.Chew PO PRN (22:08)
[2020-12-26] MEDS: Sodium Chloride 0.9% 1,000 ML IV SCH ×2 (04:21→13:08)
[2020-12-26 06:20] LABS: BLOOD UREA NITROGEN,BUN 12 mg/dL (7.0-18.0); CARBON DIOXIDE,CO2 24.3 mmol/L (21.0-32.0); CHLORIDE,CL 104 mmol/L (98-107); GLUCOSE RANDOM 131 mg/dL (74-106); POTASSIUM,K 3.4 mmol/L (3.5-5.1); SODIUM,NA 141 mmol/L (136-145)
[2020-12-26] MEDS: Insulin Aspart 100 Units/ML 3 ML Pen SUBCUT SCH ×3 (08:35→18:05)
[2020-12-26] MEDS: Pantoprazole 40 MG in Sodium Chloride 0.9% 10 ML IV SCH (08:35)
[2020-12-26] MEDS ORDERED: Potassium Chloride 20 MEQ Tab.ER PO ONE (11:00)
[2020-12-26] MEDS: Metoclopramide 10 MG/2 ML SDV IVPUSH PRN (13:07)
[2020-12-26] MEDS ORDERED: Magnesium Sulfate (4.06 MEQ/ML) 5 GM/10 ML SDV IV ONE (14:00)
[2020-12-26] MEDS ORDERED: Magnesium Sulfate/Water 2 GM in Premix Bag 1 BAG IV ONE (14:15)
--- NOTE | 2020-12-26 15:26 | PCM.PN ---
<Forest Velázquez - Last Filed: 12/26/20 15:19> - General Info Date of Service: 12/26/20 Admission Dx/Problem (Free Text): The patient is a 70-year-old female, on day 3 of service, who has a significant past medical history of diabetes mellitus and hypertension, who was admitted to the medical floor due to enteritis and a partial small bowel obstruction. Upon interview with the patient today, she admits to ongoing diarrhea since last night which is nonbloody, and brown in color. We have ordered Shiga toxin and a stool culture, and will also order other pathological studies on her stool. The patient was transitioned to a clear liquid diet yesterday and has been able to tolerate chicken broth and fruit juices without any vomiting. Her abdominal pain has significantly decreased as well and is 2 out of 10 in intensity, is located in the right lower quadrant, and is nonradiating. Her magnesium levels will be repleted today and she will be transitioned to a soft diet. The patient has been hypokalemic for the last couple days and refuses oral and IV medications, as a result we will encourage oral intake of solids and liquids rich in potassium. She has no other concerns at this time. - Review of Systems General: Denies: Fever, Fatigue HEENT: Denies: Headaches Pulmonary: Denies: Shortness of Breath, Cough Cardiovascular: Denies: Chest Pain, Palpitations Gastrointestinal: Reports: Abdominal Pain, Diarrhea. Denies: Vomiting Genitourinary: Denies: Dysuria - Patient Data Vitals - Most Recent: Last Vital Signs Temp 98.4 F 12/26/20 11:47 Pulse 61 12/26/20 11:47 Resp 17 12/26/20 11:47 BP 149/65 H 12/26/20 11:47 Pulse Ox 95 12/26/20 11:47 Weight - Most Recent: 75.568 kg I&O - Last 24 Hours: Intake & Output 12/26/20 12/26/20 12/26/20 06:59 14:59 22:59 Intake Total 200 1093 Output Total 800 Balance -600 1093 Lab Results Last 24 Hours: Laboratory Results - last 24 hr 12/25/20 12/26/20 12/26/20 Range/Units 18:30 05:30 05:30 WBC 7.82 (4.0-11.0) K/uL RBC 3.90 L (4.30-5.90) M/uL Hgb 11.6 L (12.0-16.0) g/dL Hct 33.5 L (36.0-46.0) % MCV 85.9 (80.0-98.0) fL MCH 29.7 (27.0-32.0) pg MCHC 34.6 (31.0-37.0) g/dL RDW Std Deviation 40.0 (28.0-62.0) fl RDW Coeff of Brad 13 (11.0-15.0) % Plt Count 221 (150-400) K/uL MPV 9.50 (7.40-12.00) fL Neut % (Auto) 71.1 (48.0-80.0) % Lymph % (Auto) 20.8 (16.0-40.0) % Morris % (Auto) 6.8 (0.0-15.0) % Eos % (Auto) 1.2 (0.0-7.0) % Baso % (Auto) 0.1 (0.0-1.5) % Neut # (Auto) 5.6 (1.4-5.7) K/uL Lymph # (Auto) 1.6 (0.6-2.4) K/uL Morris # (Auto) 0.5 (0.0-0.8) K/uL Eos # (Auto) 0.1 (0.0-0.7) K/uL Baso # (Auto) 0.0 (0.0-0.1) K/uL Nucleated RBC % 0.0 /100WBC Nucleated RBCs # 0 K/uL Sodium 141 (136-145) mmol/L Potassium 3.4 L (3.5-5.1) mmol/L Chloride 104 (98-107) mmol/L Carbon Dioxide 24.3 (21.0-32.0) mmol/L BUN 12 (7.0-18.0) mg/dL Creatinine 0.5 L (0.6-1.0) mg/dL Est Cr Clr Drug Dosing 85.37 mL/min Estimated GFR (MDRD) > 60.0 ml/min Glucose 131 H (74-106) mg/dL POC Glucose 134 H (70-99) mg/dL Calcium 7.5 L (8.5-10.1) mg/dL Phosphorus 2.9 (2.6-4.7) mg/dL Magnesium 1.9 (1.8-2.4) mg/dL Total Bilirubin 0.6 (0.2-1.0) mg/dL AST 16 (15-37) IU/L ALT 24 (14-63) IU/L Alkaline Phosphatase 93 (46-116) U/L Total Protein 5.6 L (6.4-8.2) g/dL Albumin 3.0 L (3.4-5.0) g/dL Globulin 2.6 (2.6-4.0) g/dL Albumin/Globulin Ratio 1.2 (0.9-1.6) 12/26/20 12/26/20 Range/Units 08:35 11:45 WBC (4.0-11.0) K/uL RBC (4.30-5.90) M/uL Hgb (12.0-16.0) g/dL Hct (36.0-46.0) % MCV (80.0-98.0) fL MCH (27.0-32.0) pg MCHC (31.0-37.0) g/dL RDW Std Deviation (28.0-62.0) fl RDW Coeff of Brad (11.0-15.0) % Plt Count (150-400) K/uL MPV (7.40-12.00) fL Neut % (Auto) (48.0-80.0) % Lymph % (Auto) (16.0-40.0) % Morris % (Auto) (0.0-15.0) % Eos % (Auto) (0.0-7.0) % Baso % (Auto) (0.0-1.5) % Neut # (Auto) (1.4-5.7) K/uL Lymph # (Auto) (0.6-2.4) K/uL Morris # (Auto) (0.0-0.8) K/uL Eos # (Auto) (0.0-0.7) K/uL Baso # (Auto) (0.0-0.1) K/uL Nucleated RBC % /100WBC Nucleated RBCs # K/uL Sodium (136-145) mmol/L Potassium (3.5-5.1) mmol/L Chloride (98-107) mmol/L Carbon Dioxide (21.0-32.0) mmol/L BUN (7.0-18.0) mg/dL Creatinine (0.6-1.0) mg/dL Est Cr Clr Drug Dosing mL/min Estimated GFR (MDRD) ml/min Glucose (74-106) mg/dL POC Glucose 124 H 126 H (70-99) mg/dL Calcium (8.5-10.1) mg/dL Phosphorus (2.6-4.7) mg/dL Magnesium (1.8-2.4) mg/dL Total Bilirubin (0.2-1.0) mg/dL AST (15-37) IU/L ALT (14-63) IU/L Alkaline Phosphatase (46-116) U/L Total Protein (6.4-8.2) g/dL Albumin (3.4-5.0) g/dL Globulin (2.6-4.0) g/dL Albumin/Globulin Ratio (0.9-1.6) Rolf Results Last 24 Hours: Microbiology 12/25/20 13:30 C. difficile Antigen & Toxins A,B - Final Stool / Feces Med Orders - Current: Current Medications Calcium Carbonate/Glycine (Calcium Carbonate 500 Mg Tab.Chew) 500 mg PO Q2H PRN PRN Reason: Indigestion Last Admin: 12/25/20 22:08 Dose: 500 mg Documented by: Dextrose/Water (50% Dextrose In Water 50 Ml Syringe) 50 ml IVPUSH ASDIRECTED PRN PRN Reason: Hypoglycemia Glucagon (Glucagon,Human Recombinant 1 Mg Vial) 1 mg IM ASDIRECTED PRN PRN Reason: Hypoglycemia Hydromorphone HCl (Hydromorphone 1 Mg/Ml Syringe) 1 mg IVPUSH Q3H PRN PRN Reason: Pain Sodium Chloride (Normal Saline) 1,000 mls @ 125 mls/hr IV ASDIRECTED TAMMY Last Admin: 12/26/20 13:08 Dose: 125 mls/hr Documented by: Pantoprazole Sodium 40 mg/ (Sodium Chloride) 10 mls @ 300 mls/hr IV DAILY TAMMY Last Admin: 12/26/20 08:35 Dose: 300 mls/hr Documented by: Ciprofloxacin/Dextrose 400 mg/ (Premix) 200 mls @ 200 mls/hr IV Q12H [facility] Metronidazole 500 mg/ Premix 100 mls @ 100 mls/hr IV QID [facility] Insulin Aspart (Insulin Aspart 100 Units/Ml 3 Ml Pen) 0 unit SUBCUT TIDAC [facility]; Protocol Last Admin: 12/26/20 11:50 Dose: Not Given Documented by: Lisinopril (Lisinopril 5 Mg Tab) 5 mg PO BEDTIME [facility] Last Admin: 12/25/20 20:23 Dose: 5 mg Documented by: Metoclopramide HCl (Metoclopramide 10 Mg/2 Ml Sdv) 10 mg IVPUSH Q6H PRN PRN Reason: Nausea/Vomiting Last Admin: 12/26/20 13:07 Dose: 10 mg Documented by: Discontinued Medications Hydromorphone HCl (Hydromorphone 2 Mg/Ml Syringe) 1 mg IVPUSH ONETIME ONE Stop: 12/24/20 17:43 Last Admin: 12/24/20 17:52 Dose: 1 mg Documented by: Sodium Chloride (Normal Saline) 1,000 mls @ 1,000 mls/hr IV .Bolus ONE Stop: 12/24/20 18:41 Last Admin: 12/24/20 17:54 Dose: 1,000 mls/hr Documented by: Sodium Chloride (Normal Saline) 1,000 mls @ 100 mls/hr IV .Bolus ONE Stop: 12/25/20 06:16 Last Admin: 12/24/20 21:11 Dose: 100 mls/hr Documented by: Potassium Chloride/Sodium Chloride (Normal Saline With 40 Meq Kcl) 1,000 mls @ 125 mls/hr IV ASDIRECTED [facility] Last Admin: 12/25/20 11:27 Dose: 125 mls/hr Documented by: Magnesium Sulfate 2 gm/ Premix 50 mls @ 50 mls/hr IV ONETIME ONE Stop: 12/26/20 15:14 Last Admin: 12/26/20 14:32 Dose: 50 mls/hr Documented by: Iopamidol (Iopamidol 755 Mg/Ml 500 Ml Multipack Bottle) 100 ml IVPUSH ONETIME STA Stop: 12/24/20 18:56 Last Admin: 12/24/20 18:56 Dose: 100 ml Documented by: Lisinopril (Lisinopril 5 Mg Tab) 5 mg PO DAILY [facility] Last Admin: 12/25/20 16:08 Dose: Not Given Documented by: Metoclopramide HCl (Metoclopramide 10 Mg/2 Ml Sdv) 10 mg IVPUSH ONETIME ONE Stop: 12/24/20 17:44 Last Admin: 12/24/20 17:50 Dose: 10 mg Documented by: Potassium Chloride (Potassium Chloride 20 Meq Tab.Er) 40 meq PO ONETIME ONE Stop: 12/26/20 11:01 Last Admin: 12/26/20 11:50 Dose: Not Given Documented by: Sodium Chloride (Sodium Chloride 0.9% 10 Ml Syringe) 10 ml FLUSH ASDIRECTED PRN PRN Reason: Keep Vein Open Last Admin: 12/24/20 17:54 Dose: 10 ml Documented by: Sodium Chloride (Sodium Chloride 0.9% 2.5 Ml Syringe) 2.5 ml FLUSH ASDIRECTED PRN PRN Reason: Keep Vein Open Last Admin: 12/24/20 17:53 Dose: 2.5 ml Documented by: - Exam General: Alert, Oriented, Cooperative HEENT: Mucous Membr. Moist/[place] Neck: No: Lymphadenopathy Lungs: No: Clear to Auscultation, Normal Respiratory Effort Cardiovascular: Tachycardia GI/Abdominal Exam: Tender - Patient Data Lab Results Last 24 hrs: Laboratory Results - last 24 hr 12/25/20 12/26/20 12/26/20 Range/Units 18:30 05:30 05:30 WBC 7.82 (4.0-11.0) K/uL RBC 3.90 L (4.30-5.90) M/uL Hgb 11.6 L (12.0-16.0) g/dL Hct 33.5 L (36.0-46.0) % MCV 85.9 (80.0-98.0) fL MCH 29.7 (27.0-32.0) pg MCHC 34.6 (31.0-37.0) g/dL RDW Std Deviation 40.0 (28.0-62.0) fl RDW Coeff of Brad 13 (11.0-15.0) % Plt Count 221 (150-400) K/uL MPV 9.50 (7.40-12.00) fL Neut % (Auto) 71.1 (48.0-80.0) % Lymph % (Auto) 20.8 (16.0-40.0) % Morris % (Auto) 6.8 (0.0-15.0) % Eos % (Auto) 1.2 (0.0-7.0) % Baso % (Auto) 0.1 (0.0-1.5) % Neut # (Auto) 5.6 (1.4-5.7) K/uL Lymph # (Auto) 1.6 (0.6-2.4) K/uL Morris # (Auto) 0.5 (0.0-0.8) K/uL Eos # (Auto) 0.1 (0.0-0.7) K/uL Baso # (Auto) 0.0 (0.0-0.1) K/uL Nucleated RBC % 0.0 /100WBC Nucleated RBCs # 0 K/uL Sodium 141 (136-145) mmol/L Potassium 3.4 L (3.5-5.1) mmol/L Chloride 104 (98-107) mmol/L Carbon Dioxide 24.3 (21.0-32.0) mmol/L BUN 12 (7.0-18.0) mg/dL Creatinine 0.5 L (0.6-1.0) mg/dL Est Cr Clr Drug Dosing 85.37 mL/min Estimated GFR (MDRD) > 60.0 ml/min Glucose 131 H (74-106) mg/dL POC Glucose 134 H (70-99) mg/dL Calcium 7.5 L (8.5-10.1) mg/dL Phosphorus 2.9 (2.6-4.7) mg/dL Magnesium 1.9 (1.8-2.4) mg/dL Total Bilirubin 0.6 (0.2-1.0) mg/dL AST 16 (15-37) IU/L ALT 24 (14-63) IU/L Alkaline Phosphatase 93 (46-116) U/L Total Protein 5.6 L (6.4-8.2) g/dL Albumin 3.0 L (3.4-5.0) g/dL Globulin 2.6 (2.6-4.0) g/dL Albumin/Globulin Ratio 1.2 (0.9-1.6) 12/26/20 12/26/20 Range/Units 08:35 11:45 WBC (4.0-11.0) K/uL RBC (4.30-5.90) M/uL Hgb (12.0-16.0) g/dL Hct (36.0-46.0) % MCV (80.0-98.0) fL MCH (27.0-32.0) pg MCHC (31.0-37.0) g/dL RDW Std Deviation (28.0-62.0) fl RDW Coeff of Brad (11.0-15.0) % Plt Count (150-400) K/uL MPV (7.40-12.00) fL Neut % (Auto) (48.0-80.0) % Lymph % (Auto) (16.0-40.0) % Morris % (Auto) (0.0-15.0) % Eos % (Auto) (0.0-7.0) % Baso % (Auto) (0.0-1.5) % Neut # (Auto) (1.4-5.7) K/uL Lymph # (Auto) (0.6-2.4) K/uL Morris # (Auto) (0.0-0.8) K/uL Eos # (Auto) (0.0-0.7) K/uL Baso # (Auto) (0.0-0.1) K/uL Nucleated RBC % /100WBC Nucleated RBCs # K/uL Sodium (136-145) mmol/L Potassium (3.5-5.1) mmol/L Chloride (98-107) mmol/L Carbon Dioxide (21.0-32.0) mmol/L BUN (7.0-18.0) mg/dL Creatinine (0.6-1.0) mg/dL Est Cr Clr Drug Dosing mL/min Estimated GFR (MDRD) ml/min Glucose (74-106) mg/dL POC Glucose 124 H 126 H (70-99) mg/dL Calcium (8.5-10.1) mg/dL Phosphorus (2.6-4.7) mg/dL Magnesium (1.8-2.4) mg/dL Total Bilirubin (0.2-1.0) mg/dL AST (15-37) IU/L ALT (14-63) IU/L Alkaline Phosphatase (46-116) U/L Total Protein (6.4-8.2) g/dL Albumin (3.4-5.0) g/dL Globulin (2.6-4.0) g/dL Albumin/Globulin Ratio (0.9-1.6) Result Diagrams: 12/26/20 05:30 12/26/20 05:30 Rolf Results Last 24 hrs: Microbiology 12/25/20 13:30 C. difficile Antigen & Toxins A,B - Final Stool / Feces Sepsis Event Note - Evaluation Sepsis Screening Result: No Definite Risk - Focused Exam Vital Signs: Vital Signs Temp Pulse Resp BP Pulse Ox 12/26/20 11:47 98.4 F 61 17 149/65 H 95 12/26/20 08:32 97.3 F 65 18 145/72 H 94 L 12/26/20 04:00 97.1 F 64 18 154/62 H 95 - Problem List & Annotations (1) Enteritis SNOMED Code(s): 50762254 Code(s): K52.9 - NONINFECTIVE GASTROENTERITIS AND COLITIS, UNSPECIFIED Status: Acute Current Visit: Yes (2) Diabetes SNOMED Code(s): 71527255 Code(s): E11.9 - TYPE 2 DIABETES MELLITUS WITHOUT COMPLICATIONS Status: Acute Current Visit: Yes (3) HTN (hypertension) SNOMED Code(s): 29609123 Code(s): I10 - ESSENTIAL (PRIMARY) HYPERTENSION Status: Acute Current Visit: Yes (4) Abdominal pain SNOMED Code(s): 95851835 Code(s): R10.9 - UNSPECIFIED ABDOMINAL PAIN Status: Acute Current Visit: Yes Qualifiers: Abdominal location: generalized Qualified Code(s): R10.84 - Generalized abdominal pain (5) SBO (small bowel obstruction) SNOMED Code(s): 629640525 Code(s): K56.609 - UNSP INTESTNL OBST, UNSP TO PARTIAL VERSUS COMPLETE OBST Status: Acute Current Visit: Yes - Problem List Review Problem List Initiated/Reviewed/Updated: Yes - My Orders Last 24 Hours: My Active Orders 12/25/20 21:00 lisinopriL [Prinivil] 5 mg PO BEDTIME 12/26/20 14:49 STL CULT SHIGA TOX CAMPY AG [MREF] Routine 12/26/20 14:52 CRYPTOSPORIDIUM BY IMMUNOASSAY [MREF] Routine GIARDIA ANTIGEN BY IMMUNOASSAY [MREF] Routine 12/26/20 15:00 Ciprofloxacin in D5W [Cipro in D5W 400 MG/200 ML] 400 mg Premix Bag 1 bag IV Q12H 12/26/20 18:00 metroNIDAZOLE/Normal Saline [Flagyl in NS 500 MG/100 ML] 500 mg Premix Bag 1 bag IV QID - Plan Plan:: 1. Enteritis/partial small bowel obstruction -We will continue with hydromorphone 1 mg IV every 3 hours for pain -We will continue with Reglan 10 mg IV every 6 hours for vomiting -The patient has been transitioned from a clear liquid diet to a soft diet and is tolerating it well -Shiga toxin, stool culture, Campylobacter, cryptosporidium, Giardia, and Salmonella antigen have been ordered -The patient will be started on ciprofloxacin 400 mg IV every 12 hours and Flagyl 500 mg IV 4 times daily -Continue to monitor patient through daily CBC/CMP 2. Diabetes mellitus -The patient is on an insulin sliding scale/NovoLog -Continue to monitor patient's blood glucose through daily CMP 3. Hypokalemia -The patient has refused oral and IV medications containing potassium, but has agreed to eat solids and liquids that are high in potassium, she has been given orange juice 4. Hypomagnesemia -The patient has been given a 2 g IV loading dose of magnesium sulfate 5. Hypertension -Continue lisinopril 5 mg per oral route <Gisele Aguilar - Last Filed: 12/27/20 19:03> - Patient Data Vitals - Most Recent: Last Vital Signs Temp 37.1 C 12/27/20 12:00 Pulse 64 12/27/20 12:00 Resp 18 12/27/20 12:00 BP 186/84 H 12/27/20 12:00 Pulse Ox 90 L 12/27/20 12:00 I&O - Last 24 Hours: Intake & Output 12/27/20 12/27/20 12/27/20 06:59 14:59 22:59 Intake Total 1260 Output Total 450 Balance 810 Lab Results Last 24 Hours: Laboratory Results - last 24 hr 12/27/20 12/27/20 12/27/20 Range/Units 01:30 [employer] 06:13 06:14 WBC (4.0-11.0) K/uL RBC (4.30-5.90) M/uL Hgb (12.0-16.0) g/dL Hct (36.0-46.0) % MCV (80.0-98.0) fL MCH (27.0-32.0) pg MCHC (31.0-37.0) g/dL RDW Std Deviation (28.0-62.0) fl RDW Coeff of Brad (11.0-15.0) % Plt Count (150-400) K/uL MPV (7.40-12.00) fL Neut % (Auto) (48.0-80.0) % Lymph % (Auto) (16.0-40.0) % Morris % (Auto) (0.0-15.0) % Eos % (Auto) (0.0-7.0) % Baso % (Auto) (0.0-1.5) % Neut # (Auto) (1.4-5.7) K/uL Lymph # (Auto) (0.6-2.4) K/uL Morris # (Auto) (0.0-0.8) K/uL Eos # (Auto) (0.0-0.7) K/uL Baso # (Auto) (0.0-0.1) K/uL Nucleated RBC % /100WBC Nucleated RBCs # K/uL Sodium 137 (136-145) mmol/L Potassium 2.9 L (3.5-5.1) mmol/L Chloride 101 (98-107) mmol/L Carbon Dioxide 24.9 (21.0-32.0) mmol/L BUN 5 L (7.0-18.0) mg/dL Creatinine 0.5 L (0.6-1.0) mg/dL Est Cr Clr Drug Dosing 85.37 mL/min Estimated GFR (MDRD) > 60.0 ml/min Glucose 140 H (74-106) mg/dL POC Glucose 133 H 114 H (70-99) mg/dL Calcium 7.8 L (8.5-10.1) mg/dL Total Bilirubin 0.4 (0.2-1.0) mg/dL AST 12 L (15-37) IU/L ALT 21 (14-63) IU/L Alkaline Phosphatase 88 (46-116) U/L Total Protein 6.1 L (6.4-8.2) g/dL Albumin 3.0 L (3.4-5.0) g/dL Globulin 3.1 (2.6-4.0) g/dL Albumin/Globulin Ratio 1.0 (0.9-1.6) 12/27/20 12/27/20 12/27/20 Range/Units 06:56 11:50 17:57 WBC 9.30 (4.0-11.0) K/uL RBC 3.94 L (4.30-5.90) M/uL Hgb 11.7 L (12.0-16.0) g/dL Hct 33.1 L (36.0-46.0) % MCV 84.0 (80.0-98.0) fL MCH 29.7 (27.0-32.0) pg MCHC 35.3 (31.0-37.0) g/dL RDW Std Deviation 38.7 (28.0-62.0) fl RDW Coeff of Brad 13 (11.0-15.0) % Plt Count 239 (150-400) K/uL MPV 9.20 (7.40-12.00) fL Neut % (Auto) 76.4 (48.0-80.0) % Lymph % (Auto) 14.9 L (16.0-40.0) % Morris % (Auto) 8.4 (0.0-15.0) % Eos % (Auto) 0.2 (0.0-7.0) % Baso % (Auto) 0.1 (0.0-1.5) % Neut # (Auto) 7.1 H (1.4-5.7) K/uL Lymph # (Auto) 1.4 (0.6-2.4) K/uL Morris # (Auto) 0.8 (0.0-0.8) K/uL Eos # (Auto) 0.0 (0.0-0.7) K/uL Baso # (Auto) 0.0 (0.0-0.1) K/uL Nucleated RBC % 0.0 /100WBC Nucleated RBCs # 0 K/uL Sodium (136-145) mmol/L Potassium (3.5-5.1) mmol/L Chloride (98-107) mmol/L Carbon Dioxide (21.0-32.0) mmol/L BUN (7.0-18.0) mg/dL Creatinine (0.6-1.0) mg/dL Est Cr Clr Drug Dosing mL/min Estimated GFR (MDRD) ml/min Glucose (74-106) mg/dL POC Glucose 144 H 121 H (70-99) mg/dL Calcium (8.5-10.1) mg/dL Total Bilirubin (0.2-1.0) mg/dL AST (15-37) IU/L ALT (14-63) IU/L Alkaline Phosphatase (46-116) U/L Total Protein (6.4-8.2) g/dL Albumin (3.4-5.0) g/dL Globulin (2.6-4.0) g/dL Albumin/Globulin Ratio (0.9-1.6) Med Orders - Current: Current Medications Calcium Carbonate/Glycine (Calcium Carbonate 500 Mg Tab.Chew) 500 mg PO Q2H PRN PRN Reason: Indigestion Last Admin: 12/25/20 22:08 Dose: 500 mg Documented by: Dextrose/Water (50% Dextrose In Water 50 Ml Syringe) 50 ml IVPUSH ASDIRECTED PRN PRN Reason: Hypoglycemia Glucagon (Glucagon,Human Recombinant 1 Mg Vial) 1 mg IM ASDIRECTED PRN PRN Reason: Hypoglycemia Hydromorphone HCl (Hydromorphone 1 Mg/Ml Syringe) 1 mg IVPUSH Q3H PRN PRN Reason: Pain Sodium Chloride (Normal Saline) 1,000 mls @ 125 mls/hr IV ASDIRECTED [facility] Last Admin: 12/26/20 13:08 Dose: 125 mls/hr Documented by: Pantoprazole Sodium 40 mg/ (Sodium Chloride) 10 mls @ 300 mls/hr IV DAILY [facility] Last Admin: 12/27/20 09:16 Dose: 300 mls/hr Documented by: Ciprofloxacin/Dextrose 400 mg/ (Premix) 200 mls @ 200 mls/hr IV Q12H [facility] Last Admin: 12/27/20 14:44 Dose: 200 mls/hr Documented by: Metronidazole 500 mg/ Premix 100 mls @ 100 mls/hr IV QID [facility] Last Admin: 12/27/20 18:11 Dose: 100 mls/hr Documented by: Lactated Ringer's (Ringers, Lactated) 1,000 mls @ 125 mls/hr IV ASDIRECTED [facility] Last Admin: 12/26/20 19:30 Dose: 125 mls/hr Documented by: Potassium Chloride 60 meq/ (Dextrose/Lactated Ringer's) 1,030 mls @ 125 mls/hr IV ONETIME [facility] Last Admin: 12/27/20 10:15 Dose: 125 mls/hr Documented by: Insulin Aspart (Insulin Aspart 100 Units/Ml 3 Ml Pen) 0 unit SUBCUT TIDAC [facility]; Protocol Last Admin: 12/27/20 18:48 Dose: Not Given Documented by: Lisinopril (Lisinopril 5 Mg Tab) 5 mg PO BEDTIME [facility] Last Admin: 12/26/20 21:40 Dose: 5 mg Documented by: Metoclopramide HCl (Metoclopramide 10 Mg/2 Ml Sdv) 10 mg IVPUSH Q4H PRN PRN Reason: Nausea/Vomiting Last Admin: 12/26/20 17:46 Dose: 10 mg Documented by: Discontinued Medications Hydromorphone HCl (Hydromorphone 2 Mg/Ml Syringe) 1 mg IVPUSH ONETIME ONE Stop: 12/24/20 17:43 Last Admin: 12/24/20 17:52 Dose: 1 mg Documented by: Sodium Chloride (Normal Saline) 1,000 mls @ 1,000 mls/hr IV .Bolus ONE Stop: 12/24/20 18:41 Last Admin: 12/24/20 17:54 Dose: 1,000 mls/hr Documented by: Sodium Chloride (Normal Saline) 1,000 mls @ 100 mls/hr IV .Bolus ONE Stop: 12/25/20 06:16 Last Admin: 12/24/20 21:11 Dose: 100 mls/hr Documented by: Potassium Chloride/Sodium Chloride (Normal Saline With 40 Meq Kcl) 1,000 mls @ 125 mls/hr IV ASDIRECTED [facility] Last Admin: 12/25/20 11:27 Dose: 125 mls/hr Documented by: Magnesium Sulfate 2 gm/ Premix 50 mls @ 50 mls/hr IV ONETIME ONE Stop: 12/26/20 15:14 Last Admin: 12/26/20 14:32 Dose: 50 mls/hr Documented by: Iopamidol (Iopamidol 755 Mg/Ml 500 Ml Multipack Bottle) 100 ml IVPUSH ONETIME STA Stop: 12/24/20 18:56 Last Admin: 12/24/20 18:56 Dose: 100 ml Documented by: Iopamidol (Iopamidol 755 Mg/Ml 500 Ml Multipack Bottle) 100 ml IVPUSH ONETIME ONE Stop: 12/27/20 01:22 [employer] Last Admin: 12/27/20 01:22 CDT Dose: 100 ml Documented by: Lisinopril (Lisinopril 5 Mg Tab) 5 mg PO DAILY TAMMY Last Admin: 12/25/20 16:08 Dose: Not Given Documented by: Metoclopramide HCl (Metoclopramide 10 Mg/2 Ml Sdv) 10 mg IVPUSH ONETIME ONE Stop: 12/24/20 17:44 Last Admin: 12/24/20 17:50 Dose: 10 mg Documented by: Metoclopramide HCl (Metoclopramide 10 Mg/2 Ml Sdv) 10 mg IVPUSH Q6H PRN PRN Reason: Nausea/Vomiting Last Admin: 12/26/20 13:07 Dose: 10 mg Documented by: Potassium Chloride (Potassium Chloride 20 Meq Tab.Er) 40 meq PO ONETIME ONE Stop: 12/26/20 11:01 Last Admin: 12/26/20 11:50 Dose: Not Given Documented by: Promethazine HCl (Promethazine 25 Mg/Ml Sdv) 12.5 mg IM ONETIME ONE Stop: 12/26/20 18:57 Last Admin: 12/26/20 19:27 Dose: 12.5 mg Documented by: Sodium Chloride (Sodium Chloride 0.9% 10 Ml Syringe) 10 ml FLUSH ASDIRECTED PRN PRN Reason: Keep Vein Open Last Admin: 12/24/20 17:54 Dose: 10 ml Documented by: Sodium Chloride (Sodium Chloride 0.9% 2.5 Ml Syringe) 2.5 ml FLUSH ASDIRECTED PRN PRN Reason: Keep Vein Open Last Admin: 12/24/20 17:53 Dose: 2.5 ml Documented by: - Patient Data Lab Results Last 24 hrs: Laboratory Results - last 24 hr 12/27/20 12/27/20 12/27/20 Range/Units 01:30 [employer] 06:13 06:14 WBC (4.0-11.0) K/uL RBC (4.30-5.90) M/uL Hgb (12.0-16.0) g/dL Hct (36.0-46.0) % MCV (80.0-98.0) fL MCH (27.0-32.0) pg MCHC (31.0-37.0) g/dL RDW Std Deviation (28.0-62.0) fl RDW Coeff of Brad (11.0-15.0) % Plt Count (150-400) K/uL MPV (7.40-12.00) fL Neut % (Auto) (48.0-80.0) % Lymph % (Auto) (16.0-40.0) % Morris % (Auto) (0.0-15.0) % Eos % (Auto) (0.0-7.0) % Baso % (Auto) (0.0-1.5) % Neut # (Auto) (1.4-5.7) K/uL Lymph # (Auto) (0.6-2.4) K/uL Morris # (Auto) (0.0-0.8) K/uL Eos # (Auto) (0.0-0.7) K/uL Baso # (Auto) (0.0-0.1) K/uL Nucleated RBC % /100WBC Nucleated RBCs # K/uL Sodium 137 (136-145) mmol/L Potassium 2.9 L (3.5-5.1) mmol/L Chloride 101 (98-107) mmol/L Carbon Dioxide 24.9 (21.0-32.0) mmol/L BUN 5 L (7.0-18.0) mg/dL Creatinine 0.5 L (0.6-1.0) mg/dL Est Cr Clr Drug Dosing 85.37 mL/min Estimated GFR (MDRD) > 60.0 ml/min Glucose 140 H (74-106) mg/dL POC Glucose 133 H 114 H (70-99) mg/dL Calcium 7.8 L (8.5-10.1) mg/dL Total Bilirubin 0.4 (0.2-1.0) mg/dL AST 12 L (15-37) IU/L ALT 21 (14-63) IU/L Alkaline Phosphatase 88 (46-116) U/L Total Protein 6.1 L (6.4-8.2) g/dL Albumin 3.0 L (3.4-5.0) g/dL Globulin 3.1 (2.6-4.0) g/dL Albumin/Globulin Ratio 1.0 (0.9-1.6) 12/27/20 12/27/20 12/27/20 Range/Units 06:56 11:50 17:57 WBC 9.30 (4.0-11.0) K/uL RBC 3.94 L (4.30-5.90) M/uL Hgb 11.7 L (12.0-16.0) g/dL Hct 33.1 L (36.0-46.0) % MCV 84.0 (80.0-98.0) fL MCH 29.7 (27.0-32.0) pg MCHC 35.3 (31.0-37.0) g/dL RDW Std Deviation 38.7 (28.0-62.0) fl RDW Coeff of Brad 13 (11.0-15.0) % Plt Count 239 (150-400) K/uL MPV 9.20 (7.40-12.00) fL Neut % (Auto) 76.4 (48.0-80.0) % Lymph % (Auto) 14.9 L (16.0-40.0) % Morris % (Auto) 8.4 (0.0-15.0) % Eos % (Auto) 0.2 (0.0-7.0) % Baso % (Auto) 0.1 (0.0-1.5) % Neut # (Auto) 7.1 H (1.4-5.7) K/uL Lymph # (Auto) 1.4 (0.6-2.4) K/uL Morris # (Auto) 0.8 (0.0-0.8) K/uL Eos # (Auto) 0.0 (0.0-0.7) K/uL Baso # (Auto) 0.0 (0.0-0.1) K/uL Nucleated RBC % 0.0 /100WBC Nucleated RBCs # 0 K/uL Sodium (136-145) mmol/L Potassium (3.5-5.1) mmol/L Chloride (98-107) mmol/L Carbon Dioxide (21.0-32.0) mmol/L BUN (7.0-18.0) mg/dL Creatinine (0.6-1.0) mg/dL Est Cr Clr Drug Dosing mL/min Estimated GFR (MDRD) ml/min Glucose (74-106) mg/dL POC Glucose 144 H 121 H (70-99) mg/dL Calcium (8.5-10.1) mg/dL Total Bilirubin (0.2-1.0) mg/dL AST (15-37) IU/L ALT (14-63) IU/L Alkaline Phosphatase (46-116) U/L Total Protein (6.4-8.2) g/dL Albumin (3.4-5.0) g/dL Globulin (2.6-4.0) g/dL Albumin/Globulin Ratio (0.9-1.6) Result Diagrams: 12/27/20 06:56 12/27/20 06:14 Sepsis Event Note - Focused Exam Vital Signs: Vital Signs Temp Pulse Resp BP Pulse Ox 12/27/20 12:00 37.1 C 64 18 186/84 H 90 L 12/27/20 09:45 37.4 C 63 16 179/79 H 88 L 12/27/20 08:00 36.4 C 65 16 179/75 H 85 L - Problem List & Annotations (1) Abdominal pain SNOMED Code(s): 45170822 Code(s): R10.9 - UNSPECIFIED ABDOMINAL PAIN Status: Acute Priority: Medium Current Visit: Yes Qualifiers: Abdominal location: generalized Qualified Code(s): R10.84 - Generalized abdominal pain (2) Diabetes SNOMED Code(s): 55054077 Code(s): E11.9 - TYPE 2 DIABETES MELLITUS WITHOUT COMPLICATIONS Status: Acute Current Visit: Yes (3) Enteritis SNOMED Code(s): 92275382 Code(s): K52.9 - NONINFECTIVE GASTROENTERITIS AND COLITIS, UNSPECIFIED Status: Acute Priority: Medium Current Visit: Yes (4) HTN (hypertension) SNOMED Code(s): 06051617 Code(s): I10 - ESSENTIAL (PRIMARY) HYPERTENSION Status: Acute Current Visit: Yes (5) Ileus SNOMED Code(s): 347759538 Code(s): K56.7 - ILEUS, UNSPECIFIED Status: Acute Priority: High Current Visit: Yes (6) SBO (small bowel obstruction) SNOMED Code(s): 587808688 Code(s): K56.609 - UNSP INTESTNL OBST, UNSP TO PARTIAL VERSUS COMPLETE OBST Status: Acute Priority: Medium Current Visit: Yes - My Orders Last 24 Hours: My Active Orders 12/27/20 00:21 Gastrointestinal Tube Mgmt [RC] Q4H Nasogastric Orogastric Tube Insertion [OM.PC] Routine 12/27/20 09:01 Patient Status [ADT] Routine 12/27/20 09:06 Notify Provider Consults [RC] ASDIRECTED 12/27/20 09:09 Consult to Physician [CONS] Routine 12/27/20 09:45 Potassium Chloride 60 meq Dextrose 5%-Lactated Ringers 1,000 ml IV ONETIME 12/27/20 10:04 Admission Status [Patient Status] [ADT] Routine 12/28/20 05:11 CBC WITH AUTO DIFF [HEME] AM CMP [COMPREHENSIVE METABOLIC PN,CMP] [CHEM] AM MAGNESIUM [CHEM] AM PHOSPHORUS [CHEM] AM 12/28/20 07:00 Abdomen 1V Upright [CR] Routine 12/29/20 05:11 CBC WITH AUTO DIFF [HEME] AM CMP [COMPREHENSIVE METABOLIC PN,CMP] [CHEM] AM MAGNESIUM [CHEM] AM PHOSPHORUS [CHEM] AM - Plan Plan:: I have seen and evaluated the patient. I have discussed findings and treatment plan with resident. I agree with the assessment and plan in the following note.
[2020-12-26] MEDS: Ciprofloxacin in D5W 400 MG in Premix Bag 1 BAG IV SCH ×2 (16:18)
[2020-12-26] MEDS ORDERED: Metoclopramide 10 MG/2 ML SDV IVPUSH PRN (17:41)
[2020-12-26] MEDS ORDERED: Promethazine 25 MG/ML SDV IM ONE (18:56)
[2020-12-26] MEDS ORDERED: Lactated Ringers 1,000 ML IV SCH (19:00)
[2020-12-26] MEDS: metroNIDAZOLE/Normal Saline 500 MG in Premix Bag 1 BAG IV SCH (19:30)
--- NOTE | 2020-12-26 21:19 | CT ---
INDICATION: Abdominal pain TECHNIQUE: CT abdomen and pelvis acquired with IV contrast. COMPARISON: CT 12/24/2020 FINDINGS: Lower chest: Bilateral breast implants. Mild bibasilar linear atelectasis. Liver: Diffuse hepatic low-attenuation suggests a degree of steatosis. No focal lesion. Spleen: Unremarkable. Pancreas: Unremarkable. Gallbladder and bile ducts: Unremarkable. Adrenal glands: Unremarkable. Kidneys: Parapelvic cyst in the midpole of the left kidney. A couple of subcentimeter low-density right renal lesions are stable and too small to characterize. No hydronephrosis. GI tract: Colonic diverticulosis. No acute colonic abnormality. Dilated fluid-filled loops of small bowel are slightly increased. More distal small bowel loops are decompressed. A discrete transition point is not identified. No pneumatosis. No definite small bowel wall thickening. Vascular structures: No sign of aneurysm. There is atherosclerotic calcification. Lymph nodes: Unremarkable. Miscellaneous: No free intraperitoneal gas. A small amount of free fluid in the lower abdomen and pelvis is slightly increased. Pelvic Organs: Hysterectomy. Bladder is nondistended, limiting evaluation. No gross abnormality. Bones: No acute abnormality. Stable small sclerotic lesion in the left pubic body and the right ischium IMPRESSION: 1. Dilated fluid-filled loops of small bowel are slightly increased consistent with persistent small-bowel obstruction. Discrete transition point is not identified. 2. A small amount of free fluid in the lower abdomen and pelvis is slightly increased. 3. Colonic diverticulosis. 4. Likely degree of hepatic steatosis. Please note that all CT scans at this facility use dose modulation, iterative reconstruction, and/or weight-based dosing when appropriate to reduce radiation dose to as low as reasonably achievable. Dictated by Edward Crooks MD @ 12/26/2020 9:18:50 PM (Electronically Signed)
[2020-12-26] MEDS: Lisinopril 5 MG Tab PO SCH (21:40)
[2020-12-27] MEDS ORDERED: Iopamidol 755 MG/ML 500 ML Multipack Bottle IVPUSH ONE (01:21)
[2020-12-27] MEDS: metroNIDAZOLE/Normal Saline 500 MG in Premix Bag 1 BAG IV SCH ×5 (01:24→23:47)
--- NOTE | 2020-12-27 01:57 | CR ---
INDICATION: NG tube placement. COMPARISON: None. FINDINGS/IMPRESSION: Upright radiograph of the lower chest and upper abdomen demonstrates a nasogastric tube extending into the left upper quadrant, presumably within the proximal stomach. There is mild gaseous distention of bowel loops in the upper abdomen. Dictated by Mario Monterroso MD @ 12/27/2020 1:55:31 AM Dictated by: Mario Monterroso MD @ 12/27/2020 01:55:46 (Electronically Signed)
[2020-12-27] MEDS: Ciprofloxacin in D5W 400 MG in Premix Bag 1 BAG IV SCH ×4 (03:38→14:44)
[2020-12-27 07:08] LABS: BLOOD UREA NITROGEN,BUN 5 mg/dL (7.0-18.0); CARBON DIOXIDE,CO2 24.9 mmol/L (21.0-32.0); CHLORIDE,CL 101 mmol/L (98-107); GLUCOSE RANDOM 140 mg/dL (74-106); POTASSIUM,K 2.9 mmol/L (3.5-5.1); SODIUM,NA 137 mmol/L (136-145)
[2020-12-27] MEDS: Insulin Aspart 100 Units/ML 3 ML Pen SUBCUT SCH ×3 (08:00→18:48)
[2020-12-27] MEDS ORDERED: DEXTROSE 5% IV SCH ×2 (09:00→09:45)
[2020-12-27] MEDS ORDERED: POTASSIUM CHLORIDE IV SCH ×2 (09:00→09:45)
[2020-12-27] MEDS ORDERED: LACT RINGERS IV SCH (09:00)
[2020-12-27] MEDS ORDERED: KCL IV SCH (09:00)
[2020-12-27] MEDS: Pantoprazole 40 MG in Sodium Chloride 0.9% 10 ML IV SCH (09:16)
[2020-12-27] MEDS ORDERED: LACTATED RINGERS IV SCH (09:45)
--- NOTE | 2020-12-27 11:55 | PCM.CONS ---
H&P History of Present Illness - General Date of Service: 12/27/20 Admit Problem/Dx: Small bowel obstruction vs ileus vs enteritis Source of Information: Patient History Limitations: Reports: No Limitations - History of Present Illness Initial Comments - Free Text/Narative: Patient is a 70 y/o female admitted 12/24 with abdominal pain, nausea, vomiting, and diarrhea of several days duration. No fever or chills. Initially felt to have an enteritis and has responded. Abdominal films today still show dilated small bowel without a transition point. Patient relates she is still passing gas and have liquid stools. She rates her pain a "1" today and has not required any analgesics. Onset of Symptoms: Reports: Gradual Duration of Symptoms: Reports: Week(s):, Getting Worse Location: Reports: Abdomen Quality: Reports: Burning, Pressure, Same as Previous Episode Improves with: Reports: None Worsens with: Reports: None Context: Reports: Sick Contact Associated Symptoms: Reports: Nausea/Vomiting, Other (Diarrhea) abdomen Pain Score (Numeric/FACES): 9 - Related Data Allergies/Adverse Reactions: Allergies Allergy/AdvReac Type Severity Reaction Status Date / Time codeine Allergy Confusion Verified 12/24/20 17:31 lorazepam [From Ativan] Allergy Confusion Verified 12/24/20 17:31 meperidine [From Demerol] Allergy Confusion Verified 12/24/20 17:31 ondansetron [From Zofran] Allergy Itching Verified 12/24/20 17:31 Sulfa (Sulfonamide Allergy Rash Verified 12/24/20 17:31 Antibiotics) Home Medications: Home Meds Empagliflozin [Jardiance] 10 mg PO DAILY 12/24/20 [History] lisinopriL [Lisinopril] 5 mg PO DAILY 12/24/20 [History] Past Medical History HEENT History: Reports: Hard of Hearing, Macular Degeneration Cardiovascular History: Reports: Hypertension Respiratory History: Reports: None Gastrointestinal History: Reports: Diverticulosis Genitourinary History: Reports: None 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: Musculoskeletal History: Reports: Fracture Neurological History: Reports: None Psychiatric History: Reports: None Endocrine/Metabolic History: Reports: Diabetes, Type II Hematologic History: Reports: None Immunologic History: Reports: None Oncologic (Cancer) History: Reports: None Dermatologic History: Reports: None - Infectious Disease History Infectious Disease History: Reports: Chicken Pox - Past Surgical History Head Surgeries/Procedures: Reports: None HEENT Surgical History: Reports: None Cardiovascular Surgical History: Reports: None Respiratory Surgical History: Reports: None GI Surgical History: Reports: Appendectomy Female Surgical History: Reports: Hysterectomy Musculoskeletal Surgical History: Reports: Other (See Below) Other Musculoskeletal Surgeries/Procedures:: 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 Denies: Fever, Chills HEENT: Reports: No Symptoms Pulmonary: Denies: Shortness of Breath, Wheezing Cardiovascular: Denies: Chest Pain, Palpitations Gastrointestinal: Reports: Abdominal Pain, Diarrhea, Distension, Flatus. Denies: Anorexia, Black Stool, Bloody Stool, Constipation, Hematemesis, Hematochezia, Melena, Nausea, Vomiting Genitourinary: Denies: Dysuria, Frequency, Burning Musculoskeletal: Reports: No Symptoms Skin: Denies: Cyanosis, Jaundice, Mottled, Pallor, Diaphoresis Psychiatric: Denies: Confusion, Depression, Mood Lability, Anxiety Neurological: Reports: No Symptoms Hematologic/Lymphatic: Reports: No Symptoms Immunologic: Reports: No Symptoms Exam - Exam Exam: See Below - Vital Signs Vital Signs: Last Vital Signs Temp 97.6 F 12/27/20 08:00 Pulse 65 12/27/20 08:00 Resp 16 12/27/20 08:00 BP 179/75 H 12/27/20 08:00 Pulse Ox 85 L 12/27/20 08:00 Weight: 166 lb 9.6 oz - Exam General: Alert, Oriented, Cooperative, Mild Distress, Other (NG present) HEENT: Conjunctiva Clear, Nares Patent, Pupils Equal, Pupils Reactive. No: Scleral Icterus Neck: Supple, Trachea Midline, +2 Carotid Pulse wo Bruit Lungs: Clear to Auscultation, Normal Respiratory Effort. No: Rales, Rhonchi, Wheezing Cardiovascular: Regular Rate, Regular Rhythm, Normal S1, Normal S2. No: Tachycardia, Systolic Murmur GI/Abdominal Exam: Soft, Distended, Tender, Abnormal Bowel Sounds (Hypoactive). No: Guarding, Rigid, Rebound (Female) Exam: Deferred Rectal (Female) Exam: Deferred Back Exam: Normal Inspection Extremities: Normal Inspection, Normal Range of Motion Peripheral Pulses: 4+: Posterior Tibial (L), Posterior Tibial (R), Dorsalis Pedis (L), Dorsalis Pedis (R) Skin: Warm, Dry, Intact Neurological: Cranial Nerves Intact Psychiatric: Alert, Normal Affect, Normal Mood - Patient Data Lab Results Last 24 hrs: Laboratory Results - last 24 hr 12/26/20 12/27/20 12/27/20 Range/Units 18:04 01:30 SAW SUPERINTENDENT 06:13 WBC (4.0-11.0) K/uL RBC (4.30-5.90) M/uL Hgb (12.0-16.0) g/dL Hct (36.0-46.0) % MCV (80.0-98.0) fL MCH (27.0-32.0) pg MCHC (31.0-37.0) g/dL RDW Std Deviation (28.0-62.0) fl RDW Coeff of Brad (11.0-15.0) % Plt Count (150-400) K/uL MPV (7.40-12.00) fL Neut % (Auto) (48.0-80.0) % Lymph % (Auto) (16.0-40.0) % Greenlee % (Auto) (0.0-15.0) % Eos % (Auto) (0.0-7.0) % Baso % (Auto) (0.0-1.5) % Neut # (Auto) (1.4-5.7) K/uL Lymph # (Auto) (0.6-2.4) K/uL Greenlee # (Auto) (0.0-0.8) K/uL Eos # (Auto) (0.0-0.7) K/uL Baso # (Auto) (0.0-0.1) K/uL Nucleated RBC % /100WBC Nucleated RBCs # K/uL Sodium (136-145) mmol/L Potassium (3.5-5.1) mmol/L Chloride (98-107) mmol/L Carbon Dioxide (21.0-32.0) mmol/L BUN (7.0-18.0) mg/dL Creatinine (0.6-1.0) mg/dL Est Cr Clr Drug Dosing mL/min Estimated GFR (MDRD) ml/min Glucose (74-106) mg/dL POC Glucose 163 H 133 H 114 H (70-99) mg/dL Calcium (8.5-10.1) mg/dL Total Bilirubin (0.2-1.0) mg/dL AST (15-37) IU/L ALT (14-63) IU/L Alkaline Phosphatase (46-116) U/L Total Protein (6.4-8.2) g/dL Albumin (3.4-5.0) g/dL Globulin (2.6-4.0) g/dL Albumin/Globulin Ratio (0.9-1.6) 12/27/20 12/27/20 Range/Units 06:14 06:56 WBC 9.30 (4.0-11.0) K/uL RBC 3.94 L (4.30-5.90) M/uL Hgb 11.7 L (12.0-16.0) g/dL Hct 33.1 L (36.0-46.0) % MCV 84.0 (80.0-98.0) fL MCH 29.7 (27.0-32.0) pg MCHC 35.3 (31.0-37.0) g/dL RDW Std Deviation 38.7 (28.0-62.0) fl RDW Coeff of Brad 13 (11.0-15.0) % Plt Count 239 (150-400) K/uL MPV 9.20 (7.40-12.00) fL Neut % (Auto) 76.4 (48.0-80.0) % Lymph % (Auto) 14.9 L (16.0-40.0) % Greenlee % (Auto) 8.4 (0.0-15.0) % Eos % (Auto) 0.2 (0.0-7.0) % Baso % (Auto) 0.1 (0.0-1.5) % Neut # (Auto) 7.1 H (1.4-5.7) K/uL Lymph # (Auto) 1.4 (0.6-2.4) K/uL Greenlee # (Auto) 0.8 (0.0-0.8) K/uL Eos # (Auto) 0.0 (0.0-0.7) K/uL Baso # (Auto) 0.0 (0.0-0.1) K/uL Nucleated RBC % 0.0 /100WBC Nucleated RBCs # 0 K/uL Sodium 137 (136-145) mmol/L Potassium 2.9 L (3.5-5.1) mmol/L Chloride 101 (98-107) mmol/L Carbon Dioxide 24.9 (21.0-32.0) mmol/L BUN 5 L (7.0-18.0) mg/dL Creatinine 0.5 L (0.6-1.0) mg/dL Est Cr Clr Drug Dosing 85.37 mL/min Estimated GFR (MDRD) > 60.0 ml/min Glucose 140 H (74-106) mg/dL POC Glucose (70-99) mg/dL Calcium 7.8 L (8.5-10.1) mg/dL Total Bilirubin 0.4 (0.2-1.0) mg/dL AST 12 L (15-37) IU/L ALT 21 (14-63) IU/L Alkaline Phosphatase 88 (46-116) U/L Total Protein 6.1 L (6.4-8.2) g/dL Albumin 3.0 L (3.4-5.0) g/dL Globulin 3.1 (2.6-4.0) g/dL Albumin/Globulin Ratio 1.0 (0.9-1.6) Result Diagrams: 12/27/20 06:56 12/27/20 06:14 Sepsis Event Note - Evaluation Sepsis Screening Result: No Definite Risk - Focused Exam Vital Signs: Vital Signs Temp Pulse Resp BP Pulse Ox 12/27/20 08:00 97.6 F 65 16 179/75 H 85 L 12/27/20 04:00 97.3 F 65 16 145/79 H 90 L Consult PN Assessment/Plan (1) Ileus SNOMED Code(s): 064098446 Code(s): K56.7 - ILEUS, UNSPECIFIED Priority: High Current Visit: Yes (2) Abdominal pain SNOMED Code(s): 47604984 Code(s): R10.9 - UNSPECIFIED ABDOMINAL PAIN Priority: Medium Current Visit: Yes Qualifiers: Abdominal location: generalized Qualified Code(s): R10.84 - Generalized ab dominal pain (3) Enteritis SNOMED Code(s): 33052728 Code(s): K52.9 - NONINFECTIVE GASTROENTERITIS AND COLITIS, UNSPECIFIED Priority: Medium Current Visit: Yes (4) SBO (small bowel obstruction) SNOMED Code(s): 948181474 Code(s): K56.609 - UNSP INTESTNL OBST, UNSP TO PARTIAL VERSUS COMPLETE OBST Priority: Medium Current Visit: Yes Problem List Initiated/Reviewed/Updated: Yes Plan: Abdominal films are not available as computer system is down. Dictated report states NG is in LUQ so presumably appropriately placed. Patient does fell her abdomen is distended but not as bad as on admission. She states she is passing gas today. She rates her pain a "1" without analgesics. To my exam her abdomen is distended with hypoactive bowel sounds. I can't review the abdominal films at this time. Recommend very conservative treatment with ambulation and continued NG decompression. Would repeat films in the morning.
--- NOTE | 2020-12-27 12:58 | PCM.PN ---
- General Info Date of Service: 12/27/20 Admission Dx/Problem (Free Text): Small bowel obstruction vs ileus vs enteritis Subjective Update: Patient seen at bedside, states that NG tube really helped her with her pain and nausea. States that her abdominal pain is 1-10. - Review of Systems General: Denies: Weakness, Fatigue, Malaise Pulmonary: Denies: Shortness of Breath, Pleuritic Chest Pain Cardiovascular: Denies: Chest Pain, Palpitations Gastrointestinal: Reports: Abdominal Pain, Decreased Appetite. Denies: Constipation, Diarrhea, Difficulty Swallowing, Nausea, Vomiting Genitourinary: Denies: Frequency, Burning Musculoskeletal: Denies: Shoulder Pain, Arm Pain, Hand Pain Skin: Denies: Jaundice, Mottled Neurological: Denies: Dizziness, Headache, Numbness - Patient Data Vitals - Most Recent: Last Vital Signs Temp 36.4 C 12/27/20 08:00 Pulse 65 12/27/20 08:00 Resp 16 12/27/20 08:00 BP 179/75 H 12/27/20 08:00 Pulse Ox 85 L 12/27/20 08:00 Weight - Most Recent: 75.568 kg I&O - Last 24 Hours: Intake & Output 12/26/20 12/27/20 12/27/20 23:59 06:59 14:59 Intake Total Output Total Balance Lab Results Last 24 Hours: Laboratory Results - last 24 hr 12/26/20 12/27/20 12/27/20 Range/Units 18:04 01:30 [employer] 06:13 WBC (4.0-11.0) K/uL RBC (4.30-5.90) M/uL Hgb (12.0-16.0) g/dL Hct (36.0-46.0) % MCV (80.0-98.0) fL MCH (27.0-32.0) pg MCHC (31.0-37.0) g/dL RDW Std Deviation (28.0-62.0) fl RDW Coeff of Brad (11.0-15.0) % Plt Count (150-400) K/uL MPV (7.40-12.00) fL Neut % (Auto) (48.0-80.0) % Lymph % (Auto) (16.0-40.0) % [place] % (Auto) (0.0-15.0) % Eos % (Auto) (0.0-7.0) % Baso % (Auto) (0.0-1.5) % Neut # (Auto) (1.4-5.7) K/uL Lymph # (Auto) (0.6-2.4) K/uL [place] # (Auto) (0.0-0.8) K/uL Eos # (Auto) (0.0-0.7) K/uL Baso # (Auto) (0.0-0.1) K/uL Nucleated RBC % /100WBC Nucleated RBCs # K/uL Sodium (136-145) mmol/L Potassium (3.5-5.1) mmol/L Chloride (98-107) mmol/L Carbon Dioxide (21.0-32.0) mmol/L BUN (7.0-18.0) mg/dL Creatinine (0.6-1.0) mg/dL Est Cr Clr Drug Dosing mL/min Estimated GFR (MDRD) ml/min Glucose (74-106) mg/dL POC Glucose 163 H 133 H 114 H (70-99) mg/dL Calcium (8.5-10.1) mg/dL Total Bilirubin (0.2-1.0) mg/dL AST (15-37) IU/L ALT (14-63) IU/L Alkaline Phosphatase (46-116) U/L Total Protein (6.4-8.2) g/dL Albumin (3.4-5.0) g/dL Globulin (2.6-4.0) g/dL Albumin/Globulin Ratio (0.9-1.6) 12/27/20 12/27/20 Range/Units 06:14 06:56 WBC 9.30 (4.0-11.0) K/uL RBC 3.94 L (4.30-5.90) M/uL Hgb 11.7 L (12.0-16.0) g/dL Hct 33.1 L (36.0-46.0) % MCV 84.0 (80.0-98.0) fL MCH 29.7 (27.0-32.0) pg MCHC 35.3 (31.0-37.0) g/dL RDW Std Deviation 38.7 (28.0-62.0) fl RDW Coeff of Brad 13 (11.0-15.0) % Plt Count 239 (150-400) K/uL MPV 9.20 (7.40-12.00) fL Neut % (Auto) 76.4 (48.0-80.0) % Lymph % (Auto) 14.9 L (16.0-40.0) % [place] % (Auto) 8.4 (0.0-15.0) % Eos % (Auto) 0.2 (0.0-7.0) % Baso % (Auto) 0.1 (0.0-1.5) % Neut # (Auto) 7.1 H (1.4-5.7) K/uL Lymph # (Auto) 1.4 (0.6-2.4) K/uL [place] # (Auto) 0.8 (0.0-0.8) K/uL Eos # (Auto) 0.0 (0.0-0.7) K/uL Baso # (Auto) 0.0 (0.0-0.1) K/uL Nucleated RBC % 0.0 /100WBC Nucleated RBCs # 0 K/uL Sodium 137 (136-145) mmol/L Potassium 2.9 L (3.5-5.1) mmol/L Chloride 101 (98-107) mmol/L Carbon Dioxide 24.9 (21.0-32.0) mmol/L BUN 5 L (7.0-18.0) mg/dL Creatinine 0.5 L (0.6-1.0) mg/dL Est Cr Clr Drug Dosing 85.37 mL/min Estimated GFR (MDRD) > 60.0 ml/min Glucose 140 H (74-106) mg/dL POC Glucose (70-99) mg/dL Calcium 7.8 L (8.5-10.1) mg/dL Total Bilirubin 0.4 (0.2-1.0) mg/dL AST 12 L (15-37) IU/L ALT 21 (14-63) IU/L Alkaline Phosphatase 88 (46-116) U/L Total Protein 6.1 L (6.4-8.2) g/dL Albumin 3.0 L (3.4-5.0) g/dL Globulin 3.1 (2.6-4.0) g/dL Albumin/Globulin Ratio 1.0 (0.9-1.6) Med Orders - Current: Current Medications Calcium Carbonate/Glycine (Calcium Carbonate 500 Mg Tab.Chew) 500 mg PO Q2H PRN PRN Reason: Indigestion Last Admin: 12/25/20 22:08 Dose: 500 mg Documented by: Dextrose/Water (50% Dextrose In Water 50 Ml Syringe) 50 ml IVPUSH ASDIRECTED PRN PRN Reason: Hypoglycemia Glucagon (Glucagon,Human Recombinant 1 Mg Vial) 1 mg IM ASDIRECTED PRN PRN Reason: Hypoglycemia Hydromorphone HCl (Hydromorphone 1 Mg/Ml Syringe) 1 mg IVPUSH Q3H PRN PRN Reason: Pain Sodium Chloride (Normal Saline) 1,000 mls @ 125 mls/hr IV ASDIRECTED [facility] Last Admin: 12/26/20 13:08 Dose: 125 mls/hr Documented by: Pantoprazole Sodium 40 mg/ (Sodium Chloride) 10 mls @ 300 mls/hr IV DAILY [facility] Last Admin: 12/27/20 09:16 Dose: 300 mls/hr Documented by: Ciprofloxacin/Dextrose 400 mg/ (Premix) 200 mls @ 200 mls/hr IV Q12H [facility] Last Admin: 12/27/20 03:38 Dose: 200 mls/hr Documented by: Metronidazole 500 mg/ Premix 100 mls @ 100 mls/hr IV QID [facility] Last Admin: 12/27/20 06:15 Dose: 100 mls/hr Documented by: Lactated Ringer's (Ringers, Lactated) 1,000 mls @ 125 mls/hr IV ASDIRECTED [facility] Last Admin: 12/26/20 19:30 Dose: 125 mls/hr Documented by: Potassium Chloride 60 meq/ (Dextrose/Lactated Ringer's) 1,030 mls @ 125 mls/hr IV ONETIME [facility] Last Admin: 12/27/20 10:15 Dose: 125 mls/hr Documented by: Insulin Aspart (Insulin Aspart 100 Units/Ml 3 Ml Pen) 0 unit SUBCUT TIDAC [facility]; Protocol Last Admin: 12/27/20 12:22 Dose: Not Given Documented by: Lisinopril (Lisinopril 5 Mg Tab) 5 mg PO BEDTIME [facility] Last Admin: 12/26/20 21:40 Dose: 5 mg Documented by: Metoclopramide HCl (Metoclopramide 10 Mg/2 Ml Sdv) 10 mg IVPUSH Q4H PRN PRN Reason: Nausea/Vomiting Last Admin: 12/26/20 17:46 Dose: 10 mg Documented by: Discontinued Medications Hydromorphone HCl (Hydromorphone 2 Mg/Ml Syringe) 1 mg IVPUSH ONETIME ONE Stop: 12/24/20 17:43 Last Admin: 12/24/20 17:52 Dose: 1 mg Documented by: Sodium Chloride (Normal Saline) 1,000 mls @ 1,000 mls/hr IV .Bolus ONE Stop: 12/24/20 18:41 Last Admin: 12/24/20 17:54 Dose: 1,000 mls/hr Documented by: Sodium Chloride (Normal Saline) 1,000 mls @ 100 mls/hr IV .Bolus ONE Stop: 12/25/20 06:16 Last Admin: 12/24/20 21:11 Dose: 100 mls/hr Documented by: Potassium Chloride/Sodium Chloride (Normal Saline With 40 Meq Kcl) 1,000 mls @ 125 mls/hr IV ASDIRECTED [facility] Last Admin: 12/25/20 11:27 Dose: 125 mls/hr Documented by: Magnesium Sulfate 2 gm/ Premix 50 mls @ 50 mls/hr IV ONETIME ONE Stop: 12/26/20 15:14 Last Admin: 12/26/20 14:32 Dose: 50 mls/hr Documented by: Iopamidol (Iopamidol 755 Mg/Ml 500 Ml Multipack Bottle) 100 ml IVPUSH ONETIME STA Stop: 12/24/20 18:56 Last Admin: 12/24/20 18:56 Dose: 100 ml Documented by: Iopamidol (Iopamidol 755 Mg/Ml 500 Ml Multipack Bottle) 100 ml IVPUSH ONETIME ONE Stop: 12/27/20 01:22 [employer] Last Admin: 12/27/20 01:22 CDT Dose: 100 ml Documented by: Lisinopril (Lisinopril 5 Mg Tab) 5 mg PO DAILY [facility] Last Admin: 12/25/20 16:08 Dose: Not Given Documented by: Metoclopramide HCl (Metoclopramide 10 Mg/2 Ml Sdv) 10 mg IVPUSH ONETIME ONE Stop: 12/24/20 17:44 Last Admin: 12/24/20 17:50 Dose: 10 mg Documented by: Metoclopramide HCl (Metoclopramide 10 Mg/2 Ml Sdv) 10 mg IVPUSH Q6H PRN PRN Reason: Nausea/Vomiting Last Admin: 12/26/20 13:07 Dose: 10 mg Documented by: Potassium Chloride (Potassium Chloride 20 Meq Tab.Er) 40 meq PO ONETIME ONE Stop: 12/26/20 11:01 Last Admin: 12/26/20 11:50 Dose: Not Given Documented by: Promethazine HCl (Promethazine 25 Mg/Ml Sdv) 12.5 mg IM ONETIME ONE Stop: 12/26/20 18:57 Last Admin: 12/26/20 19:27 Dose: 12.5 mg Documented by: Sodium Chloride (Sodium Chloride 0.9% 10 Ml Syringe) 10 ml FLUSH ASDIRECTED PRN PRN Reason: Keep Vein Open Last Admin: 12/24/20 17:54 Dose: 10 ml Documented by: Sodium Chloride (Sodium Chloride 0.9% 2.5 Ml Syringe) 2.5 ml FLUSH ASDIRECTED PRN PRN Reason: Keep Vein Open Last Admin: 12/24/20 17:53 Dose: 2.5 ml Documented by: - Exam General: Alert, Oriented Lungs: Clear to Auscultation, Normal Respiratory Effort Cardiovascular: Regular Rate, Regular Rhythm GI/Abdominal Exam: Soft, Distended (Mild), Abnormal Bowel Sounds. No: Hepatomegaly, Splenomegaly Back Exam: Normal Inspection Extremities: Normal Inspection, Normal Range of Motion, Non-Tender, No Pedal Edema - Patient Data Lab Results Last 24 hrs: Laboratory Results - last 24 hr 12/26/20 12/27/20 12/27/20 Range/Units 18:04 01:30 [employer] 06:13 WBC (4.0-11.0) K/uL RBC (4.30-5.90) M/uL Hgb (12.0-16.0) g/dL Hct (36.0-46.0) % MCV (80.0-98.0) fL MCH (27.0-32.0) pg MCHC (31.0-37.0) g/dL RDW Std Deviation (28.0-62.0) fl RDW Coeff of Brad (11.0-15.0) % Plt Count (150-400) K/uL MPV (7.40-12.00) fL Neut % (Auto) (48.0-80.0) % Lymph % (Auto) (16.0-40.0) % [place] % (Auto) (0.0-15.0) % Eos % (Auto) (0.0-7.0) % Baso % (Auto) (0.0-1.5) % Neut # (Auto) (1.4-5.7) K/uL Lymph # (Auto) (0.6-2.4) K/uL [place] # (Auto) (0.0-0.8) K/uL Eos # (Auto) (0.0-0.7) K/uL Baso # (Auto) (0.0-0.1) K/uL Nucleated RBC % /100WBC Nucleated RBCs # K/uL Sodium (136-145) mmol/L Potassium (3.5-5.1) mmol/L Chloride (98-107) mmol/L Carbon Dioxide (21.0-32.0) mmol/L BUN (7.0-18.0) mg/dL Creatinine (0.6-1.0) mg/dL Est Cr Clr Drug Dosing mL/min Estimated GFR (MDRD) ml/min Glucose (74-106) mg/dL POC Glucose 163 H 133 H 114 H (70-99) mg/dL Calcium (8.5-10.1) mg/dL Total Bilirubin (0.2-1.0) mg/dL AST (15-37) IU/L ALT (14-63) IU/L Alkaline Phosphatase (46-116) U/L Total Protein (6.4-8.2) g/dL Albumin (3.4-5.0) g/dL Globulin (2.6-4.0) g/dL Albumin/Globulin Ratio (0.9-1.6) 12/27/20 12/27/20 Range/Units 06:14 06:56 WBC 9.30 (4.0-11.0) K/uL RBC 3.94 L (4.30-5.90) M/uL Hgb 11.7 L (12.0-16.0) g/dL Hct 33.1 L (36.0-46.0) % MCV 84.0 (80.0-98.0) fL MCH 29.7 (27.0-32.0) pg MCHC 35.3 (31.0-37.0) g/dL RDW Std Deviation 38.7 (28.0-62.0) fl RDW Coeff of Brad 13 (11.0-15.0) % Plt Count 239 (150-400) K/uL MPV 9.20 (7.40-12.00) fL Neut % (Auto) 76.4 (48.0-80.0) % Lymph % (Auto) 14.9 L (16.0-40.0) % [place] % (Auto) 8.4 (0.0-15.0) % Eos % (Auto) 0.2 (0.0-7.0) % Baso % (Auto) 0.1 (0.0-1.5) % Neut # (Auto) 7.1 H (1.4-5.7) K/uL Lymph # (Auto) 1.4 (0.6-2.4) K/uL [place] # (Auto) 0.8 (0.0-0.8) K/uL Eos # (Auto) 0.0 (0.0-0.7) K/uL Baso # (Auto) 0.0 (0.0-0.1) K/uL Nucleated RBC % 0.0 /100WBC Nucleated RBCs # 0 K/uL Sodium 137 (136-145) mmol/L Potassium 2.9 L (3.5-5.1) mmol/L Chloride 101 (98-107) mmol/L Carbon Dioxide 24.9 (21.0-32.0) mmol/L BUN 5 L (7.0-18.0) mg/dL Creatinine 0.5 L (0.6-1.0) mg/dL Est Cr Clr Drug Dosing 85.37 mL/min Estimated GFR (MDRD) > 60.0 ml/min Glucose 140 H (74-106) mg/dL POC Glucose (70-99) mg/dL Calcium 7.8 L (8.5-10.1) mg/dL Total Bilirubin 0.4 (0.2-1.0) mg/dL AST 12 L (15-37) IU/L ALT 21 (14-63) IU/L Alkaline Phosphatase 88 (46-116) U/L Total Protein 6.1 L (6.4-8.2) g/dL Albumin 3.0 L (3.4-5.0) g/dL Globulin 3.1 (2.6-4.0) g/dL Albumin/Globulin Ratio 1.0 (0.9-1.6) Result Diagrams: 12/27/20 06:56 12/27/20 06:14 Sepsis Event Note - Evaluation Sepsis Screening Result: No Definite Risk - Focused Exam Vital Signs: Vital Signs Temp Pulse Resp BP Pulse Ox 12/27/20 08:00 36.4 C 65 16 179/75 H 85 L 12/27/20 04:00 36.3 C 65 16 145/79 H 90 L - Problem List & Annotations (1) Abdominal pain SNOMED Code(s): 39335016 Code(s): R10.9 - UNSPECIFIED ABDOMINAL PAIN Status: Acute Priority: Medium Current Visit: Yes Qualifiers: Abdominal location: generalized Qualified Code(s): R10.84 - Generalized abdominal pain (2) Diabetes SNOMED Code(s): 00016036 Code(s): E11.9 - TYPE 2 DIABETES MELLITUS WITHOUT COMPLICATIONS Status: Acute Current Visit: Yes (3) Enteritis SNOMED Code(s): 80113073 Code(s): K52.9 - NONINFECTIVE GASTROENTERITIS AND COLITIS, UNSPECIFIED Status: Acute Priority: Medium Current Visit: Yes (4) HTN (hypertension) SNOMED Code(s): 38269165 Code(s): I10 - ESSENTIAL (PRIMARY) HYPERTENSION Status: Acute Current Visit: Yes (5) Ileus SNOMED Code(s): 508730754 Code(s): K56.7 - ILEUS, UNSPECIFIED Status: Acute Priority: High Current Visit: Yes (6) SBO (small bowel obstruction) SNOMED Code(s): 897149648 Code(s): K56.609 - UNSP INTESTNL OBST, UNSP TO PARTIAL VERSUS COMPLETE OBST Status: Acute Priority: Medium Current Visit: Yes - Problem List Review Problem List Initiated/Reviewed/Updated: Yes - My Orders Last 24 Hours: My Active Orders 12/26/20 17:41 Metoclopramide [Reglan] 10 mg IVPUSH Q4H PRN 12/27/20 00:21 Gastrointestinal Tube Mgmt [RC] Q4H Nasogastric Orogastric Tube Insertion [OM.PC] Routine 12/27/20 09:01 Patient Status [ADT] Routine 12/27/20 09:06 Notify Provider Consults [RC] ASDIRECTED 12/27/20 09:09 Consult to Physician [CONS] Routine 12/27/20 09:45 Potassium Chloride 60 meq Dextrose 5%-Lactated Ringers 1,000 ml IV ONETIME 12/27/20 10:04 Admission Status [Patient Status] [ADT] Routine 12/28/20 07:00 Abdomen 1V Upright [CR] Routine - Plan Plan:: 1. Enteritis/partial small bowel obstruction -We will continue with hydromorphone 1 mg IV every 3 hours for pain -We will continue with Reglan 10 mg IV every 6 hours for vomiting NG tube is in place, continue n.p.o. except ice chips for now -Shiga toxin, stool culture, Campylobacter, cryptosporidium, Giardia, and Salmonella antigen have been ordered -The patient will be started on ciprofloxacin 400 mg IV every 12 hours and Flagyl 500 mg IV 4 times daily -Continue to monitor patient through daily CBC/CMP -Surgery on board, currently does not recommend any invasive procedure just conservative management 2. Diabetes mellitus -The patient is on an insulin sliding scale/NovoLog -Continue to monitor patient's blood glucose through daily CMP 3. Hypokalemia -We will replete via IV, recheck in a.m. 4. Hypomagnesemia -Resolved, recheck in a.m. 5. Hypertension -Continue lisinopril 5 mg per oral route
[2020-12-27] MEDS: Lisinopril 5 MG Tab PO SCH (20:56)
[2020-12-27] MEDS ORDERED: Labetalol 100 MG/20 ML MDV IVPUSH ONE (21:05)
[2020-12-28] MEDS: Ciprofloxacin in D5W 400 MG in Premix Bag 1 BAG IV SCH ×4 (03:07→14:09)
[2020-12-28] MEDS ORDERED: Labetalol 100 MG/20 ML MDV IVPUSH ONE (03:13)
[2020-12-28] MEDS: Dextrose 5%-Lactated Ringers 1,000 ML IV SCH ×2 (03:24→18:18)
[2020-12-28] MEDS: metroNIDAZOLE/Normal Saline 500 MG in Premix Bag 1 BAG IV SCH ×3 (05:23→18:23)
[2020-12-28] MEDS: Insulin Aspart 100 Units/ML 3 ML Pen SUBCUT SCH ×3 (07:34→19:01)
[2020-12-28 08:14] LABS: BLOOD UREA NITROGEN,BUN 4 mg/dL (7.0-18.0); CARBON DIOXIDE,CO2 22.1 mmol/L (21.0-32.0); CHLORIDE,CL 103 mmol/L (98-107); GLUCOSE RANDOM 146 mg/dL (74-106); POTASSIUM,K 3.5 mmol/L (3.5-5.1); SODIUM,NA 139 mmol/L (136-145)
[2020-12-28] MEDS: Pantoprazole 40 MG in Sodium Chloride 0.9% 10 ML IV SCH (09:23)
[2020-12-28] MEDS: Labetalol 100 MG/20 ML MDV IVPUSH PRN ×2 (09:54→21:19)
--- NOTE | 2020-12-28 11:44 | PCM.PN ---
- General Info Date of Service: 12/28/20 Subjective Update: The patient is a 70-year-old female, on day 5 of service, who has a significant past medical history of diabetes mellitus and hypertension, who was admitted to the medical floor due to enteritis and a partial small bowel obstruction. The patient currently has an NG tube placed, is n.p.o., is eating ice chips, and says she has considerably less pain that she had a couple days ago. She rates it at 1 out of 10, in the lower abdomen bilaterally, and non radiating. She has no burning, nausea, or vomiting. She had a bowel movement this morning which was solid and not loose. Overall she feels much better. Dr. Nobles from surgery has been consulted in regards to this patient's care. Abdominal films were unavailable yesterday due to system being down, but a new abdominal x-ray has been done which needs to be read. Once read we will follow Dr. Nobles's recommendations moving forward. The patient has no other complaints at this time. - Review of Systems General: Denies: Fever, Fatigue, Chills HEENT: Denies: Headaches, Sore Throat Pulmonary: Denies: Shortness of Breath, Pleuritic Chest Pain Cardiovascular: Denies: Chest Pain, Palpitations Gastrointestinal: Reports: Abdominal Pain. Denies: Nausea, Vomiting Genitourinary: Denies: Dysuria - Patient Data Vitals - Most Recent: Last Vital Signs Temp 98.1 F 12/28/20 08:00 Pulse 64 12/28/20 10:30 Resp 16 12/28/20 08:00 BP 179/77 H 12/28/20 10:30 Pulse Ox 91 L 12/28/20 08:00 Weight - Most Recent: 166 lb 9.6 oz I&O - Last 24 Hours: Intake & Output 12/27/20 12/28/20 12/28/20 22:59 06:59 14:59 Intake Total 1260 15 Output Total 450 1200 Balance 810 -1185 Lab Results Last 24 Hours: Laboratory Results - last 24 hr 12/27/20 12/27/20 12/27/20 Range/Units 11:50 17:57 23:17 WBC (4.0-11.0) K/uL RBC (4.30-5.90) M/uL Hgb (12.0-16.0) g/dL Hct (36.0-46.0) % MCV (80.0-98.0) fL MCH (27.0-32.0) pg MCHC (31.0-37.0) g/dL RDW Std Deviation (28.0-62.0) fl RDW Coeff of Brad (11.0-15.0) % Plt Count (150-400) K/uL MPV (7.40-12.00) fL Neut % (Auto) (48.0-80.0) % Lymph % (Auto) (16.0-40.0) % [place] % (Auto) (0.0-15.0) % Eos % (Auto) (0.0-7.0) % Baso % (Auto) (0.0-1.5) % Neut # (Auto) (1.4-5.7) K/uL Lymph # (Auto) (0.6-2.4) K/uL [place] # (Auto) (0.0-0.8) K/uL Eos # (Auto) (0.0-0.7) K/uL Baso # (Auto) (0.0-0.1) K/uL Nucleated RBC % /100WBC Nucleated RBCs # K/uL Sodium (136-145) mmol/L Potassium (3.5-5.1) mmol/L Chloride (98-107) mmol/L Carbon Dioxide (21.0-32.0) mmol/L BUN (7.0-18.0) mg/dL Creatinine (0.6-1.0) mg/dL Est Cr Clr Drug Dosing mL/min Estimated GFR (MDRD) ml/min Glucose (74-106) mg/dL POC Glucose 144 H 121 H 123 H (70-99) mg/dL Calcium (8.5-10.1) mg/dL Phosphorus (2.6-4.7) mg/dL Magnesium (1.8-2.4) mg/dL Total Bilirubin (0.2-1.0) mg/dL AST (15-37) IU/L ALT (14-63) IU/L Alkaline Phosphatase (46-116) U/L Total Protein (6.4-8.2) g/dL Albumin (3.4-5.0) g/dL Globulin (2.6-4.0) g/dL Albumin/Globulin Ratio (0.9-1.6) 12/28/20 12/28/20 12/28/20 Range/Units 06:13 06:35 06:35 WBC 10.95 (4.0-11.0) K/uL RBC 4.06 L (4.30-5.90) M/uL Hgb 11.9 L (12.0-16.0) g/dL Hct 34.5 L (36.0-46.0) % MCV 85.0 (80.0-98.0) fL MCH 29.3 (27.0-32.0) pg MCHC 34.5 (31.0-37.0) g/dL RDW Std Deviation 39.2 (28.0-62.0) fl RDW Coeff of Brad 13 (11.0-15.0) % Plt Count 258 (150-400) K/uL MPV 9.60 (7.40-12.00) fL Neut % (Auto) 76.5 (48.0-80.0) % Lymph % (Auto) 16.0 (16.0-40.0) % [place] % (Auto) 6.7 (0.0-15.0) % Eos % (Auto) 0.6 (0.0-7.0) % Baso % (Auto) 0.2 (0.0-1.5) % Neut # (Auto) 8.4 H (1.4-5.7) K/uL Lymph # (Auto) 1.8 (0.6-2.4) K/uL [place] # (Auto) 0.7 (0.0-0.8) K/uL Eos # (Auto) 0.1 (0.0-0.7) K/uL Baso # (Auto) 0.0 (0.0-0.1) K/uL Nucleated RBC % 0.0 /100WBC Nucleated RBCs # 0 K/uL Sodium 139 (136-145) mmol/L Potassium 3.5 (3.5-5.1) mmol/L Chloride 103 (98-107) mmol/L Carbon Dioxide 22.1 (21.0-32.0) mmol/L BUN 4 L (7.0-18.0) mg/dL Creatinine 0.5 L (0.6-1.0) mg/dL Est Cr Clr Drug Dosing 85.37 mL/min Estimated GFR (MDRD) > 60.0 ml/min Glucose 146 H (74-106) mg/dL POC Glucose 142 H (70-99) mg/dL Calcium 8.2 L (8.5-10.1) mg/dL Phosphorus 3.0 (2.6-4.7) mg/dL Magnesium 1.9 (1.8-2.4) mg/dL Total Bilirubin 0.4 (0.2-1.0) mg/dL AST 16 (15-37) IU/L ALT 20 (14-63) IU/L Alkaline Phosphatase 89 (46-116) U/L Total Protein 6.1 L (6.4-8.2) g/dL Albumin 3.2 L (3.4-5.0) g/dL Globulin 2.9 (2.6-4.0) g/dL Albumin/Globulin Ratio 1.1 (0.9-1.6) Med Orders - Current: Current Medications Calcium Carbonate/Glycine (Calcium Carbonate 500 Mg Tab.Chew) 500 mg PO Q2H PRN PRN Reason: Indigestion Last Admin: 12/25/20 22:08 Dose: 500 mg Documented by: Dextrose/Water (50% Dextrose In Water 50 Ml Syringe) 50 ml IVPUSH ASDIRECTED PRN PRN Reason: Hypoglycemia Glucagon (Glucagon,Human Recombinant 1 Mg Vial) 1 mg IM ASDIRECTED PRN PRN Reason: Hypoglycemia Hydromorphone HCl (Hydromorphone 1 Mg/Ml Syringe) 1 mg IVPUSH Q3H PRN PRN Reason: Pain Sodium Chloride (Normal Saline) 1,000 mls @ 125 mls/hr IV ASDIRECTED [facility] Last Admin: 12/26/20 13:08 Dose: 125 mls/hr Documented by: Pantoprazole Sodium 40 mg/ (Sodium Chloride) 10 mls @ 300 mls/hr IV DAILY [facility] Last Admin: 12/28/20 09:23 Dose: 300 mls/hr Documented by: Ciprofloxacin/Dextrose 400 mg/ (Premix) 200 mls @ 200 mls/hr IV Q12H [facility] Last Admin: 12/28/20 03:07 Dose: 200 mls/hr Documented by: Metronidazole 500 mg/ Premix 100 mls @ 100 mls/hr IV QID [facility] Last Admin: 12/28/20 11:16 Dose: 100 mls/hr Documented by: Lactated Ringer's (Ringers, Lactated) 1,000 mls @ 125 mls/hr IV ASDIRECTED [facility] Last Admin: 12/26/20 19:30 Dose: 125 mls/hr Documented by: Dextrose/Lactated Ringer's (Dextrose 5%-Lactated Ringers) 1,000 mls @ 125 mls/hr IV ASDIRECTED [facility] Last Admin: 12/28/20 03:24 Dose: 125 mls/hr Documented by: Insulin Aspart (Insulin Aspart 100 Units/Ml 3 Ml Pen) 0 unit SUBCUT TIDAC [facility]; Protocol Last Admin: 12/28/20 07:34 Dose: Not Given Documented by: Labetalol HCl (Labetalol 100 Mg/20 Ml Mdv) 10 mg IVPUSH Q4H PRN; Protocol PRN Reason: Hypertension Last Admin: 12/28/20 09:54 Dose: 2 ml Documented by: Lisinopril (Lisinopril 5 Mg Tab) 5 mg PO BEDTIME [facility] Last Admin: 12/27/20 20:56 Dose: Not Given Documented by: Metoclopramide HCl (Metoclopramide 10 Mg/2 Ml Sdv) 10 mg IVPUSH Q4H PRN PRN Reason: Nausea/Vomiting Last Admin: 12/26/20 17:46 Dose: 10 mg Documented by: Discontinued Medications Hydromorphone HCl (Hydromorphone 2 Mg/Ml Syringe) 1 mg IVPUSH ONETIME ONE Stop: 12/24/20 17:43 Last Admin: 12/24/20 17:52 Dose: 1 mg Documented by: Sodium Chloride (Normal Saline) 1,000 mls @ 1,000 mls/hr IV .Bolus ONE Stop: 12/24/20 18:41 Last Admin: 12/24/20 17:54 Dose: 1,000 mls/hr Documented by: Sodium Chloride (Normal Saline) 1,000 mls @ 100 mls/hr IV .Bolus ONE Stop: 12/25/20 06:16 Last Admin: 12/24/20 21:11 Dose: 100 mls/hr Documented by: Potassium Chloride/Sodium Chloride (Normal Saline With 40 Meq Kcl) 1,000 mls @ 125 mls/hr IV ASDIRECTED [facility] Last Admin: 12/25/20 11:27 Dose: 125 mls/hr Documented by: Magnesium Sulfate 2 gm/ Premix 50 mls @ 50 mls/hr IV ONETIME ONE Stop: 12/26/20 15:14 Last Admin: 12/26/20 14:32 Dose: 50 mls/hr Documented by: Potassium Chloride 60 meq/ (Dextrose/Lactated Ringer's) 1,030 mls @ 125 mls/hr IV ONETIME [facility] Last Admin: 12/27/20 10:15 Dose: 125 mls/hr Documented by: Iopamidol (Iopamidol 755 Mg/Ml 500 Ml Multipack Bottle) 100 ml IVPUSH ONETIME STA Stop: 12/24/20 18:56 Last Admin: 12/24/20 18:56 Dose: 100 ml Documented by: Iopamidol (Iopamidol 755 Mg/Ml 500 Ml Multipack Bottle) 100 ml IVPUSH ONETIME ONE Stop: 12/27/20 01:22 [employer]OR/[employer] Last Admin: 12/27/20 01:22 CDT Dose: 100 ml Documented by: Labetalol HCl (Labetalol 100 Mg/20 Ml Mdv) 10 mg IVPUSH ONETIME ONE; Protocol Stop: 12/27/20 21:06 Last Admin: 12/27/20 21:40 Dose: 10 mg Documented by: Labetalol HCl (Labetalol 100 Mg/20 Ml Mdv) 10 mg IVPUSH ONETIME ONE; Protocol Stop: 12/28/20 03:14 Last Admin: 12/28/20 03:26 Dose: 10 mg Documented by: Lisinopril (Lisinopril 5 Mg Tab) 5 mg PO DAILY [facility] Last Admin: 12/25/20 16:08 Dose: Not Given Documented by: Metoclopramide HCl (Metoclopramide 10 Mg/2 Ml Sdv) 10 mg IVPUSH ONETIME ONE Stop: 12/24/20 17:44 Last Admin: 12/24/20 17:50 Dose: 10 mg Documented by: Metoclopramide HCl (Metoclopramide 10 Mg/2 Ml Sdv) 10 mg IVPUSH Q6H PRN PRN Reason: Nausea/Vomiting Last Admin: 12/26/20 13:07 Dose: 10 mg Documented by: Potassium Chloride (Potassium Chloride 20 Meq Tab.Er) 40 meq PO ONETIME ONE Stop: 12/26/20 11:01 Last Admin: 12/26/20 11:50 Dose: Not Given Documented by: Promethazine HCl (Promethazine 25 Mg/Ml Sdv) 12.5 mg IM ONETIME ONE Stop: 12/26/20 18:57 Last Admin: 12/26/20 19:27 Dose: 12.5 mg Documented by: Sodium Chloride (Sodium Chloride 0.9% 10 Ml Syringe) 10 ml FLUSH ASDIRECTED PRN PRN Reason: Keep Vein Open Last Admin: 12/24/20 17:54 Dose: 10 ml Documented by: Sodium Chloride (Sodium Chloride 0.9% 2.5 Ml Syringe) 2.5 ml FLUSH ASDIRECTED PRN PRN Reason: Keep Vein Open Last Admin: 12/24/20 17:53 Dose: 2.5 ml Documented by: - Exam General: Alert, Oriented, Cooperative HEENT: Mucous Membr. Moist/[place] Neck: No: Lymphadenopathy Lungs: Clear to Auscultation, Normal Respiratory Effort Cardiovascular: Regular Rate, Regular Rhythm GI/Abdominal Exam: Normal Bowel Sounds, Soft, Tender - Patient Data Lab Results Last 24 hrs: Laboratory Results - last 24 hr 12/27/20 12/27/20 12/27/20 Range/Units 11:50 17:57 23:17 WBC (4.0-11.0) K/uL RBC (4.30-5.90) M/uL Hgb (12.0-16.0) g/dL Hct (36.0-46.0) % MCV (80.0-98.0) fL MCH (27.0-32.0) pg MCHC (31.0-37.0) g/dL RDW Std Deviation (28.0-62.0) fl RDW Coeff of Brad (11.0-15.0) % Plt Count (150-400) K/uL MPV (7.40-12.00) fL Neut % (Auto) (48.0-80.0) % Lymph % (Auto) (16.0-40.0) % [place] % (Auto) (0.0-15.0) % Eos % (Auto) (0.0-7.0) % Baso % (Auto) (0.0-1.5) % Neut # (Auto) (1.4-5.7) K/uL Lymph # (Auto) (0.6-2.4) K/uL [place] # (Auto) (0.0-0.8) K/uL Eos # (Auto) (0.0-0.7) K/uL Baso # (Auto) (0.0-0.1) K/uL Nucleated RBC % /100WBC Nucleated RBCs # K/uL Sodium (136-145) mmol/L Potassium (3.5-5.1) mmol/L Chloride (98-107) mmol/L Carbon Dioxide (21.0-32.0) mmol/L BUN (7.0-18.0) mg/dL Creatinine (0.6-1.0) mg/dL Est Cr Clr Drug Dosing mL/min Estimated GFR (MDRD) ml/min Glucose (74-106) mg/dL POC Glucose 144 H 121 H 123 H (70-99) mg/dL Calcium (8.5-10.1) mg/dL Phosphorus (2.6-4.7) mg/dL Magnesium (1.8-2.4) mg/dL Total Bilirubin (0.2-1.0) mg/dL AST (15-37) IU/L ALT (14-63) IU/L Alkaline Phosphatase (46-116) U/L Total Protein (6.4-8.2) g/dL Albumin (3.4-5.0) g/dL Globulin (2.6-4.0) g/dL Albumin/Globulin Ratio (0.9-1.6) 12/28/20 12/28/20 12/28/20 Range/Units 06:13 06:35 06:35 WBC 10.95 (4.0-11.0) K/uL RBC 4.06 L (4.30-5.90) M/uL Hgb 11.9 L (12.0-16.0) g/dL Hct 34.5 L (36.0-46.0) % MCV 85.0 (80.0-98.0) fL MCH 29.3 (27.0-32.0) pg MCHC 34.5 (31.0-37.0) g/dL RDW Std Deviation 39.2 (28.0-62.0) fl RDW Coeff of Brad 13 (11.0-15.0) % Plt Count 258 (150-400) K/uL MPV 9.60 (7.40-12.00) fL Neut % (Auto) 76.5 (48.0-80.0) % Lymph % (Auto) 16.0 (16.0-40.0) % [place] % (Auto) 6.7 (0.0-15.0) % Eos % (Auto) 0.6 (0.0-7.0) % Baso % (Auto) 0.2 (0.0-1.5) % Neut # (Auto) 8.4 H (1.4-5.7) K/uL Lymph # (Auto) 1.8 (0.6-2.4) K/uL [place] # (Auto) 0.7 (0.0-0.8) K/uL Eos # (Auto) 0.1 (0.0-0.7) K/uL Baso # (Auto) 0.0 (0.0-0.1) K/uL Nucleated RBC % 0.0 /100WBC Nucleated RBCs # 0 K/uL Sodium 139 (136-145) mmol/L Potassium 3.5 (3.5-5.1) mmol/L Chloride 103 (98-107) mmol/L Carbon Dioxide 22.1 (21.0-32.0) mmol/L BUN 4 L (7.0-18.0) mg/dL Creatinine 0.5 L (0.6-1.0) mg/dL Est Cr Clr Drug Dosing 85.37 mL/min Estimated GFR (MDRD) > 60.0 ml/min Glucose 146 H (74-106) mg/dL POC Glucose 142 H (70-99) mg/dL Calcium 8.2 L (8.5-10.1) mg/dL Phosphorus 3.0 (2.6-4.7) mg/dL Magnesium 1.9 (1.8-2.4) mg/dL Total Bilirubin 0.4 (0.2-1.0) mg/dL AST 16 (15-37) IU/L ALT 20 (14-63) IU/L Alkaline Phosphatase 89 (46-116) U/L Total Protein 6.1 L (6.4-8.2) g/dL Albumin 3.2 L (3.4-5.0) g/dL Globulin 2.9 (2.6-4.0) g/dL Albumin/Globulin Ratio 1.1 (0.9-1.6) Result Diagrams: 12/28/20 06:35 12/28/20 06:35 Sepsis Event Note - Evaluation Sepsis Screening Result: No Definite Risk - Focused Exam Vital Signs: Vital Signs Temp Pulse Resp BP Pulse Ox 12/28/20 10:30 64 179/77 H 12/28/20 08:00 98.1 F 69 16 190/79 H 91 L 12/28/20 04:34 158/86 H 12/28/20 04:00 168/78 H 12/28/20 03:00 97.7 F 68 16 187/89 H 91 L 12/27/20 23:51 97.1 F 65 16 156/84 H 91 L - Problem List & Annotations (1) Enteritis SNOMED Code(s): 26892703 Code(s): K52.9 - NONINFECTIVE GASTROENTERITIS AND COLITIS, UNSPECIFIED Status: Acute Priority: Medium Current Visit: Yes (2) Diabetes SNOMED Code(s): 77354477 Code(s): E11.9 - TYPE 2 DIABETES MELLITUS WITHOUT COMPLICATIONS Status: Acute Current Visit: Yes (3) HTN (hypertension) SNOMED Code(s): 50297127 Code(s): I10 - ESSENTIAL (PRIMARY) HYPERTENSION Status: Acute Current Visit: Yes (4) Abdominal pain SNOMED Code(s): 25751704 Code(s): R10.9 - UNSPECIFIED ABDOMINAL PAIN Status: Acute Priority: Medium Current Visit: Yes Qualifiers: Abdominal location: generalized Qualified Code(s): R10.84 - Generalized abdominal pain (5) SBO (small bowel obstruction) SNOMED Code(s): 872717791 Code(s): K56.609 - UNSP INTESTNL OBST, UNSP TO PARTIAL VERSUS COMPLETE OBST Status: Acute Priority: Medium Current Visit: Yes - Problem List Review Problem List Initiated/Reviewed/Updated: Yes - Assessment Assessment:: 1. Enteritis/partial small bowel obstruction -Dr. Nobles from surgery saw this patient, he was consulted this morning and we are waiting for him to read an abdominal x-ray and give further recommendations -Continue with hydromorphone 1 mg IV every 3 hours for pain -Continue with Reglan 10 mg IV every 6 hours for vomiting -Continue with NG tube and n.p.o., ice chips allowed -Results pending for Shiga toxin, stool culture, Campylobacter, cryptosporidium, Giardia, and Salmonella antigen -Continue ciprofloxacin 400 mg IV every 12 hours and Flagyl 500 mg IV 4 times daily -Continue to monitor patient through daily CBC/CMP 2. Diabetes mellitus -The patient is on an insulin sliding scale/NovoLog -Continue to monitor patient's blood glucose through daily CMP 3. Hypertension -Continue lisinopril 5 mg per oral route
--- NOTE | 2020-12-28 13:51 | PCM.CONSN ---
- General Info Date of Service: 12/28/20 Admission Dx/Problem (Free Text): Partial SBO Subjective Update: Patient is feeling much better. She denies pain, nausea or vomiting. States she is passing gas and having loose stools. Functional Status: Reports: Pain Controlled, Ambulating, Urinating - Review of Systems General: Reports: Appetite. Denies: Fever, Weakness, Fatigue HEENT: Reports: No Symptoms Pulmonary: Denies: Shortness of Breath, Pleuritic Chest Pain Cardiovascular: Denies: Chest Pain, Palpitations Gastrointestinal: Reports: Diarrhea, Flatus. Denies: Abdominal Pain, Decreased Appetite, Nausea, Vomiting Genitourinary: Denies: Dysuria, Frequency, Burning, Pain, Urgency Musculoskeletal: Reports: No Symptoms Skin: Denies: Cyanosis, Jaundice Neurological: Reports: No Symptoms Psychiatric: Reports: No Symptoms - Patient Data Vitals - Most Recent: Last Vital Signs Temp 98.1 F 12/28/20 08:00 Pulse 64 12/28/20 10:30 Resp 16 12/28/20 08:00 BP 179/77 H 12/28/20 10:30 Pulse Ox 91 L 12/28/20 08:00 Weight - Most Recent: 166 lb 9.6 oz I&O - Last 24 Hours: Intake & Output 12/28/20 12/28/20 12/28/20 03:59 11:59 19:59 Intake Total 15 Output Total 1200 Balance -1185 Lab Results Last 24 Hours: Laboratory Results - last 24 hr 12/27/20 12/27/20 12/27/20 Range/Units 11:50 17:57 23:17 WBC (4.0-11.0) K/uL RBC (4.30-5.90) M/uL Hgb (12.0-16.0) g/dL Hct (36.0-46.0) % MCV (80.0-98.0) fL MCH (27.0-32.0) pg MCHC (31.0-37.0) g/dL RDW Std Deviation (28.0-62.0) fl RDW Coeff of Brad (11.0-15.0) % Plt Count (150-400) K/uL MPV (7.40-12.00) fL Neut % (Auto) (48.0-80.0) % Lymph % (Auto) (16.0-40.0) % [place] % (Auto) (0.0-15.0) % Eos % (Auto) (0.0-7.0) % Baso % (Auto) (0.0-1.5) % Neut # (Auto) (1.4-5.7) K/uL Lymph # (Auto) (0.6-2.4) K/uL [place] # (Auto) (0.0-0.8) K/uL Eos # (Auto) (0.0-0.7) K/uL Baso # (Auto) (0.0-0.1) K/uL Nucleated RBC % /100WBC Nucleated RBCs # K/uL Sodium (136-145) mmol/L Potassium (3.5-5.1) mmol/L Chloride (98-107) mmol/L Carbon Dioxide (21.0-32.0) mmol/L BUN (7.0-18.0) mg/dL Creatinine (0.6-1.0) mg/dL Est Cr Clr Drug Dosing mL/min Estimated GFR (MDRD) ml/min Glucose (74-106) mg/dL POC Glucose 144 H 121 H 123 H (70-99) mg/dL Calcium (8.5-10.1) mg/dL Phosphorus (2.6-4.7) mg/dL Magnesium (1.8-2.4) mg/dL Total Bilirubin (0.2-1.0) mg/dL AST (15-37) IU/L ALT (14-63) IU/L Alkaline Phosphatase (46-116) U/L Total Protein (6.4-8.2) g/dL Albumin (3.4-5.0) g/dL Globulin (2.6-4.0) g/dL Albumin/Globulin Ratio (0.9-1.6) 12/28/20 12/28/20 12/28/20 Range/Units 06:13 06:35 06:35 WBC 10.95 (4.0-11.0) K/uL RBC 4.06 L (4.30-5.90) M/uL Hgb 11.9 L (12.0-16.0) g/dL Hct 34.5 L (36.0-46.0) % MCV 85.0 (80.0-98.0) fL MCH 29.3 (27.0-32.0) pg MCHC 34.5 (31.0-37.0) g/dL RDW Std Deviation 39.2 (28.0-62.0) fl RDW Coeff of Brad 13 (11.0-15.0) % Plt Count 258 (150-400) K/uL MPV 9.60 (7.40-12.00) fL Neut % (Auto) 76.5 (48.0-80.0) % Lymph % (Auto) 16.0 (16.0-40.0) % [place] % (Auto) 6.7 (0.0-15.0) % Eos % (Auto) 0.6 (0.0-7.0) % Baso % (Auto) 0.2 (0.0-1.5) % Neut # (Auto) 8.4 H (1.4-5.7) K/uL Lymph # (Auto) 1.8 (0.6-2.4) K/uL [place] # (Auto) 0.7 (0.0-0.8) K/uL Eos # (Auto) 0.1 (0.0-0.7) K/uL Baso # (Auto) 0.0 (0.0-0.1) K/uL Nucleated RBC % 0.0 /100WBC Nucleated RBCs # 0 K/uL Sodium 139 (136-145) mmol/L Potassium 3.5 (3.5-5.1) mmol/L Chloride 103 (98-107) mmol/L Carbon Dioxide 22.1 (21.0-32.0) mmol/L BUN 4 L (7.0-18.0) mg/dL Creatinine 0.5 L (0.6-1.0) mg/dL Est Cr Clr Drug Dosing 85.37 mL/min Estimated GFR (MDRD) > 60.0 ml/min Glucose 146 H (74-106) mg/dL POC Glucose 142 H (70-99) mg/dL Calcium 8.2 L (8.5-10.1) mg/dL Phosphorus 3.0 (2.6-4.7) mg/dL Magnesium 1.9 (1.8-2.4) mg/dL Total Bilirubin 0.4 (0.2-1.0) mg/dL AST 16 (15-37) IU/L ALT 20 (14-63) IU/L Alkaline Phosphatase 89 (46-116) U/L Total Protein 6.1 L (6.4-8.2) g/dL Albumin 3.2 L (3.4-5.0) g/dL Globulin 2.9 (2.6-4.0) g/dL Albumin/Globulin Ratio 1.1 (0.9-1.6) 12/28/20 Range/Units 11:56 WBC (4.0-11.0) K/uL RBC (4.30-5.90) M/uL Hgb (12.0-16.0) g/dL Hct (36.0-46.0) % MCV (80.0-98.0) fL MCH (27.0-32.0) pg MCHC (31.0-37.0) g/dL RDW Std Deviation (28.0-62.0) fl RDW Coeff of Brad (11.0-15.0) % Plt Count (150-400) K/uL MPV (7.40-12.00) fL Neut % (Auto) (48.0-80.0) % Lymph % (Auto) (16.0-40.0) % [place] % (Auto) (0.0-15.0) % Eos % (Auto) (0.0-7.0) % Baso % (Auto) (0.0-1.5) % Neut # (Auto) (1.4-5.7) K/uL Lymph # (Auto) (0.6-2.4) K/uL [place] # (Auto) (0.0-0.8) K/uL Eos # (Auto) (0.0-0.7) K/uL Baso # (Auto) (0.0-0.1) K/uL Nucleated RBC % /100WBC Nucleated RBCs # K/uL Sodium (136-145) mmol/L Potassium (3.5-5.1) mmol/L Chloride (98-107) mmol/L Carbon Dioxide (21.0-32.0) mmol/L BUN (7.0-18.0) mg/dL Creatinine (0.6-1.0) mg/dL Est Cr Clr Drug Dosing mL/min Estimated GFR (MDRD) ml/min Glucose (74-106) mg/dL POC Glucose 152 H (70-99) mg/dL Calcium (8.5-10.1) mg/dL Phosphorus (2.6-4.7) mg/dL Magnesium (1.8-2.4) mg/dL Total Bilirubin (0.2-1.0) mg/dL AST (15-37) IU/L ALT (14-63) IU/L Alkaline Phosphatase (46-116) U/L Total Protein (6.4-8.2) g/dL Albumin (3.4-5.0) g/dL Globulin (2.6-4.0) g/dL Albumin/Globulin Ratio (0.9-1.6) Med Orders - Current: Current Medications Calcium Carbonate/Glycine (Calcium Carbonate 500 Mg Tab.Chew) 500 mg PO Q2H PRN PRN Reason: Indigestion Last Admin: 12/25/20 22:08 Dose: 500 mg Documented by: Dextrose/Water (50% Dextrose In Water 50 Ml Syringe) 50 ml IVPUSH ASDIRECTED PRN PRN Reason: Hypoglycemia Glucagon (Glucagon,Human Recombinant 1 Mg Vial) 1 mg IM ASDIRECTED PRN PRN Reason: Hypoglycemia Hydromorphone HCl (Hydromorphone 1 Mg/Ml Syringe) 1 mg IVPUSH Q3H PRN PRN Reason: Pain Sodium Chloride (Normal Saline) 1,000 mls @ 125 mls/hr IV ASDIRECTED [facility] Last Admin: 12/26/20 13:08 Dose: 125 mls/hr Documented by: Pantoprazole Sodium 40 mg/ (Sodium Chloride) 10 mls @ 300 mls/hr IV DAILY [facility] Last Admin: 12/28/20 09:23 Dose: 300 mls/hr Documented by: Ciprofloxacin/Dextrose 400 mg/ (Premix) 200 mls @ 200 mls/hr IV Q12H [facility] Last Admin: 12/28/20 03:07 Dose: 200 mls/hr Documented by: Metronidazole 500 mg/ Premix 100 mls @ 100 mls/hr IV QID [facility] Last Admin: 12/28/20 11:16 Dose: 100 mls/hr Documented by: Lactated Ringer's (Ringers, Lactated) 1,000 mls @ 125 mls/hr IV ASDIRECTED [facility] Last Admin: 12/26/20 19:30 Dose: 125 mls/hr Documented by: Dextrose/Lactated Ringer's (Dextrose 5%-Lactated Ringers) 1,000 mls @ 125 mls/hr IV ASDIRECTED [facility] Last Admin: 12/28/20 03:24 Dose: 125 mls/hr Documented by: Insulin Aspart (Insulin Aspart 100 Units/Ml 3 Ml Pen) 0 unit SUBCUT TIDAC [facility]; Protocol Last Admin: 12/28/20 12:22 Dose: 1 unit Documented by: Labetalol HCl (Labetalol 100 Mg/20 Ml Mdv) 10 mg IVPUSH Q4H PRN; Protocol PRN Reason: Hypertension Last Admin: 12/28/20 09:54 Dose: 2 ml Documented by: Lisinopril (Lisinopril 5 Mg Tab) 5 mg PO BEDTIME [facility] Last Admin: 12/27/20 20:56 Dose: Not Given Documented by: Metoclopramide HCl (Metoclopramide 10 Mg/2 Ml Sdv) 10 mg IVPUSH Q4H PRN PRN Reason: Nausea/Vomiting Last Admin: 12/26/20 17:46 Dose: 10 mg Documented by: Discontinued Medications Hydromorphone HCl (Hydromorphone 2 Mg/Ml Syringe) 1 mg IVPUSH ONETIME ONE Stop: 12/24/20 17:43 Last Admin: 12/24/20 17:52 Dose: 1 mg Documented by: Sodium Chloride (Normal Saline) 1,000 mls @ 1,000 mls/hr IV .Bolus ONE Stop: 12/24/20 18:41 Last Admin: 12/24/20 17:54 Dose: 1,000 mls/hr Documented by: Sodium Chloride (Normal Saline) 1,000 mls @ 100 mls/hr IV .Bolus ONE Stop: 12/25/20 06:16 Last Admin: 12/24/20 21:11 Dose: 100 mls/hr Documented by: Potassium Chloride/Sodium Chloride (Normal Saline With 40 Meq Kcl) 1,000 mls @ 125 mls/hr IV ASDIRECTED [facility] Last Admin: 12/25/20 11:27 Dose: 125 mls/hr Documented by: Magnesium Sulfate 2 gm/ Premix 50 mls @ 50 mls/hr IV ONETIME ONE Stop: 12/26/20 15:14 Last Admin: 12/26/20 14:32 Dose: 50 mls/hr Documented by: Potassium Chloride 60 meq/ (Dextrose/Lactated Ringer's) 1,030 mls @ 125 mls/hr IV ONETIME [facility] Last Admin: 12/27/20 10:15 Dose: 125 mls/hr Documented by: Iopamidol (Iopamidol 755 Mg/Ml 500 Ml Multipack Bottle) 100 ml IVPUSH ONETIME STA Stop: 12/24/20 18:56 Last Admin: 12/24/20 18:56 Dose: 100 ml Documented by: Iopamidol (Iopamidol 755 Mg/Ml 500 Ml Multipack Bottle) 100 ml IVPUSH ONETIME ONE Stop: 12/27/20 01:22 [employer] Last Admin: 12/27/20 01:22 CDT Dose: 100 ml Documented by: Labetalol HCl (Labetalol 100 Mg/20 Ml Mdv) 10 mg IVPUSH ONETIME ONE; Protocol Stop: 12/27/20 21:06 Last Admin: 12/27/20 21:40 Dose: 10 mg Documented by: Labetalol HCl (Labetalol 100 Mg/20 Ml Mdv) 10 mg IVPUSH ONETIME ONE; Protocol Stop: 12/28/20 03:14 Last Admin: 12/28/20 03:26 Dose: 10 mg Documented by: Lisinopril (Lisinopril 5 Mg Tab) 5 mg PO DAILY [facility] Last Admin: 12/25/20 16:08 Dose: Not Given Documented by: Metoclopramide HCl (Metoclopramide 10 Mg/2 Ml Sdv) 10 mg IVPUSH ONETIME ONE Stop: 12/24/20 17:44 Last Admin: 12/24/20 17:50 Dose: 10 mg Documented by: Metoclopramide HCl (Metoclopramide 10 Mg/2 Ml Sdv) 10 mg IVPUSH Q6H PRN PRN Reason: Nausea/Vomiting Last Admin: 12/26/20 13:07 Dose: 10 mg Documented by: Potassium Chloride (Potassium Chloride 20 Meq Tab.Er) 40 meq PO ONETIME ONE Stop: 12/26/20 11:01 Last Admin: 12/26/20 11:50 Dose: Not Given Documented by: Promethazine HCl (Promethazine 25 Mg/Ml Sdv) 12.5 mg IM ONETIME ONE Stop: 12/26/20 18:57 Last Admin: 12/26/20 19:27 Dose: 12.5 mg Documented by: Sodium Chloride (Sodium Chloride 0.9% 10 Ml Syringe) 10 ml FLUSH ASDIRECTED PRN PRN Reason: Keep Vein Open Last Admin: 12/24/20 17:54 Dose: 10 ml Documented by: Sodium Chloride (Sodium Chloride 0.9% 2.5 Ml Syringe) 2.5 ml FLUSH ASDIRECTED PRN PRN Reason: Keep Vein Open Last Admin: 12/24/20 17:53 Dose: 2.5 ml Documented by: - Exam Quality Assessment: No: Supplemental Oxygen, Central Line/PICC General: Alert, Oriented, Cooperative, No Acute Distress HEENT: Pupils Equal, Pupils Reactive. No: Scleral Icterus Lungs: Clear to Auscultation, Normal Respiratory Effort Cardiovascular: Regular Rate, Regular Rhythm, No Murmurs GI/Abdominal Exam: Normal Bowel Sounds, Soft, Non-Tender (Female) Exam: Deferred Back Exam: Normal Inspection Extremities: Normal Inspection Skin: Warm, Dry, Intact Neurological: No New Focal Deficit Psy/Mental Status: Alert, Normal Affect, Normal Mood Sepsis Event Note - Evaluation Sepsis Screening Result: No Definite Risk - Focused Exam Vital Signs: Vital Signs Temp Pulse Resp BP Pulse Ox 12/28/20 10:30 64 179/77 H 12/28/20 08:00 98.1 F 69 16 190/79 H 91 L 12/28/20 04:34 158/86 H 12/28/20 04:00 168/78 H 12/28/20 03:00 97.7 F 68 16 187/89 H 91 L Consult PN Assessment/Plan (1) Ileus SNOMED Code(s): 851155590 Code(s): K56.7 - ILEUS, UNSPECIFIED Priority: High Current Visit: Yes (2) Abdominal pain SNOMED Code(s): 58688175 Code(s): R10.9 - UNSPECIFIED ABDOMINAL PAIN Priority: Medium Current Visit: Yes Qualifiers: Abdominal location: generalized Qualified Code(s): R10.84 - Generalized abdominal pain (3) Enteritis SNOMED Code(s): 72789700 Code(s): K52.9 - NONINFECTIVE GASTROENTERITIS AND COLITIS, UNSPECIFIED Priority: Medium Current Visit: Yes (4) SBO (small bowel obstruction) SNOMED Code(s): 022600552 Code(s): K56.609 - UNSP INTESTNL OBST, UNSP TO PARTIAL VERSUS COMPLETE OBST Priority: Medium Current Visit: Yes Problem List Initiated/Reviewed/Updated: Yes Plan: Okay to remove NG and start on a full liquid diet. I did review the abdominal films from today and there is clearly air in the transverse colon.
[2020-12-28] MEDS: Lisinopril 5 MG Tab PO SCH (21:19)
[2020-12-28] MEDS: Calcium Carbonate 500 MG Tab.Chew PO PRN (21:26)
[2020-12-29] MEDS: metroNIDAZOLE/Normal Saline 500 MG in Premix Bag 1 BAG IV SCH ×5 (00:05→23:29)
[2020-12-29] MEDS: Ciprofloxacin in D5W 400 MG in Premix Bag 1 BAG IV SCH ×4 (03:09→14:17)
[2020-12-29] MEDS: Dextrose 5%-Lactated Ringers 1,000 ML IV SCH (05:53)
[2020-12-29 07:34] LABS: BLOOD UREA NITROGEN,BUN 3 mg/dL (7.0-18.0); CARBON DIOXIDE,CO2 27.1 mmol/L (21.0-32.0); CHLORIDE,CL 103 mmol/L (98-107); GLUCOSE RANDOM 171 mg/dL (74-106); POTASSIUM,K 2.8 mmol/L (3.5-5.1); SODIUM,NA 139 mmol/L (136-145)
[2020-12-29] MEDS: Insulin Aspart 100 Units/ML 3 ML Pen SUBCUT SCH ×3 (08:52→18:01)
[2020-12-29] MEDS: Pantoprazole 40 MG in Sodium Chloride 0.9% 10 ML IV SCH (08:53)
[2020-12-29] MEDS ORDERED: Sodium Chloride 0.9% with KCl 1,000 ML IV SCH ×3 (09:15→20:00)
--- NOTE | 2020-12-29 11:09 | PCM.PN ---
- General Info Date of Service: 12/29/20 Subjective Update: The patient is a 70-year-old female, on day 6 of service, who has a significant past medical history of diabetes mellitus and hypertension, who was admitted to the medical floor due to enteritis and a partial small bowel obstruction. The patient is currently on a clear liquid diet and tolerating it well, her NG tube has been removed, but she still complains of slight abdominal burning for which Protonix and Tums are working well. She no longer has diarrhea and has solid stools. Her potassium levels were depleted today and as a result discussions were made on how to replete them as the patient does not like taking oral potassium whether it is pills or solution. Resolution was reached with the patient as she agreed to take IV potassium and that is what we will start. She has no other health concerns at this time. - Review of Systems General: Denies: Fever, Weakness, Fatigue HEENT: Denies: Sore Throat Pulmonary: Denies: Shortness of Breath, Cough Cardiovascular: Denies: Chest Pain, Palpitations Gastrointestinal: Reports: Abdominal Pain. Denies: Constipation, Diarrhea Genitourinary: Denies: Dysuria, Frequency Musculoskeletal: Denies: Neck Pain - Patient Data Vitals - Most Recent: Last Vital Signs Temp 97.5 F 12/29/20 07:44 Pulse 61 12/29/20 07:44 Resp 18 12/29/20 07:44 BP 160/72 H 12/29/20 07:44 Pulse Ox 94 L 12/29/20 07:44 Weight - Most Recent: 166 lb 9.6 oz I&O - Last 24 Hours: Intake & Output 12/28/20 12/29/20 12/29/20 22:59 06:59 14:59 Intake Total 810 1900 Output Total 675 650 Balance 135 1250 Lab Results Last 24 Hours: Laboratory Results - last 24 hr 12/28/20 12/28/20 12/29/20 Range/Units 11:56 16:33 05:45 WBC 9.08 (4.0-11.0) K/uL RBC 4.00 L (4.30-5.90) M/uL Hgb 11.7 L (12.0-16.0) g/dL Hct 34.2 L (36.0-46.0) % MCV 85.5 (80.0-98.0) fL MCH 29.3 (27.0-32.0) pg MCHC 34.2 (31.0-37.0) g/dL RDW Std Deviation 40.2 (28.0-62.0) fl RDW Coeff of Brad 13 (11.0-15.0) % Plt Count 229 (150-400) K/uL MPV 10.00 (7.40-12.00) fL Neut % (Auto) 71.9 (48.0-80.0) % Lymph % (Auto) 19.5 (16.0-40.0) % [place] % (Auto) 7.0 (0.0-15.0) % Eos % (Auto) 1.4 (0.0-7.0) % Baso % (Auto) 0.2 (0.0-1.5) % Neut # (Auto) 6.5 H (1.4-5.7) K/uL Lymph # (Auto) 1.8 (0.6-2.4) K/uL [place] # (Auto) 0.6 (0.0-0.8) K/uL Eos # (Auto) 0.1 (0.0-0.7) K/uL Baso # (Auto) 0.0 (0.0-0.1) K/uL Nucleated RBC % 0.0 /100WBC Nucleated RBCs # 0 K/uL Sodium (136-145) mmol/L Potassium (3.5-5.1) mmol/L Chloride (98-107) mmol/L Carbon Dioxide (21.0-32.0) mmol/L BUN (7.0-18.0) mg/dL Creatinine (0.6-1.0) mg/dL Est Cr Clr Drug Dosing mL/min Estimated GFR (MDRD) ml/min Glucose (74-106) mg/dL POC Glucose 152 H 152 H (70-99) mg/dL Calcium (8.5-10.1) mg/dL Phosphorus (2.6-4.7) mg/dL Magnesium (1.8-2.4) mg/dL Total Bilirubin (0.2-1.0) mg/dL AST (15-37) IU/L ALT (14-63) IU/L Alkaline Phosphatase (46-116) U/L Total Protein (6.4-8.2) g/dL Albumin (3.4-5.0) g/dL Globulin (2.6-4.0) g/dL Albumin/Globulin Ratio (0.9-1.6) 12/29/20 12/29/20 Range/Units 05:45 06:23 WBC (4.0-11.0) K/uL RBC (4.30-5.90) M/uL Hgb (12.0-16.0) g/dL Hct (36.0-46.0) % MCV (80.0-98.0) fL MCH (27.0-32.0) pg MCHC (31.0-37.0) g/dL RDW Std Deviation (28.0-62.0) fl RDW Coeff of Brad (11.0-15.0) % Plt Count (150-400) K/uL MPV (7.40-12.00) fL Neut % (Auto) (48.0-80.0) % Lymph % (Auto) (16.0-40.0) % [place] % (Auto) (0.0-15.0) % Eos % (Auto) (0.0-7.0) % Baso % (Auto) (0.0-1.5) % Neut # (Auto) (1.4-5.7) K/uL Lymph # (Auto) (0.6-2.4) K/uL [place] # (Auto) (0.0-0.8) K/uL Eos # (Auto) (0.0-0.7) K/uL Baso # (Auto) (0.0-0.1) K/uL Nucleated RBC % /100WBC Nucleated RBCs # K/uL Sodium 139 (136-145) mmol/L Potassium 2.8 L (3.5-5.1) mmol/L Chloride 103 (98-107) mmol/L Carbon Dioxide 27.1 (21.0-32.0) mmol/L BUN 3 L (7.0-18.0) mg/dL Creatinine 0.6 (0.6-1.0) mg/dL Est Cr Clr Drug Dosing 71.14 mL/min Estimated GFR (MDRD) > 60.0 ml/min Glucose 171 H (74-106) mg/dL POC Glucose 143 H (70-99) mg/dL Calcium 8.2 L (8.5-10.1) mg/dL Phosphorus 3.4 (2.6-4.7) mg/dL Magnesium 1.9 (1.8-2.4) mg/dL Total Bilirubin 0.3 (0.2-1.0) mg/dL AST 14 L (15-37) IU/L ALT 15 (14-63) IU/L Alkaline Phosphatase 79 (46-116) U/L Total Protein 6.1 L (6.4-8.2) g/dL Albumin 2.9 L (3.4-5.0) g/dL Globulin 3.2 (2.6-4.0) g/dL Albumin/Globulin Ratio 0.9 (0.9-1.6) Med Orders - Current: Current Medications Calcium Carbonate/Glycine (Calcium Carbonate 500 Mg Tab.Chew) 500 mg PO Q2H PRN PRN Reason: Indigestion Last Admin: 12/28/20 21:26 Dose: 500 mg Documented by: Dextrose/Water (50% Dextrose In Water 50 Ml Syringe) 50 ml IVPUSH ASDIRECTED PRN PRN Reason: Hypoglycemia Glucagon (Glucagon,Human Recombinant 1 Mg Vial) 1 mg IM ASDIRECTED PRN PRN Reason: Hypoglycemia Hydromorphone HCl (Hydromorphone 1 Mg/Ml Syringe) 1 mg IVPUSH Q3H PRN PRN Reason: Pain Pantoprazole Sodium 40 mg/ (Sodium Chloride) 10 mls @ 300 mls/hr IV DAILY [facility] Last Admin: 12/29/20 08:53 Dose: 300 mls/hr Documented by: Ciprofloxacin/Dextrose 400 mg/ (Premix) 200 mls @ 200 mls/hr IV Q12H [facility] Last Admin: 12/29/20 03:09 Dose: 200 mls/hr Documented by: Metronidazole 500 mg/ Premix 100 mls @ 100 mls/hr IV QID [facility] Last Admin: 12/29/20 05:52 Dose: 100 mls/hr Documented by: Potassium Chloride/Sodium Chloride (Normal Saline With 40 Meq Kcl) 1,000 mls @ 100 mls/hr IV ASDIRECTED [facility] Stop: 12/30/20 19:14 Last Admin: 12/29/20 10:02 Dose: 100 mls/hr Documented by: Insulin Aspart (Insulin Aspart 100 Units/Ml 3 Ml Pen) 0 unit SUBCUT TIDAC [facility]; Protocol Last Admin: 12/29/20 08:52 Dose: Not Given Documented by: Labetalol HCl (Labetalol 100 Mg/20 Ml Mdv) 10 mg IVPUSH Q4H PRN; Protocol PRN Reason: Hypertension Last Admin: 12/28/20 21:19 Dose: 10 mg Documented by: Lisinopril (Lisinopril 5 Mg Tab) 5 mg PO BEDTIME TAMMY Last Admin: 12/28/20 21:19 Dose: 5 mg Documented by: Metoclopramide HCl (Metoclopramide 10 Mg/2 Ml Sdv) 10 mg IVPUSH Q4H PRN PRN Reason: Nausea/Vomiting Last Admin: 12/26/20 17:46 Dose: 10 mg Documented by: Discontinued Medications Hydromorphone HCl (Hydromorphone 2 Mg/Ml Syringe) 1 mg IVPUSH ONETIME ONE Stop: 12/24/20 17:43 Last Admin: 12/24/20 17:52 Dose: 1 mg Documented by: Sodium Chloride (Normal Saline) 1,000 mls @ 1,000 mls/hr IV .Bolus ONE Stop: 12/24/20 18:41 Last Admin: 12/24/20 17:54 Dose: 1,000 mls/hr Documented by: Sodium Chloride (Normal Saline) 1,000 mls @ 100 mls/hr IV .Bolus ONE Stop: 12/25/20 06:16 Last Admin: 12/24/20 21:11 Dose: 100 mls/hr Documented by: Sodium Chloride (Normal Saline) 1,000 mls @ 125 mls/hr IV ASDIRECTED [facility] Last Admin: 12/26/20 13:08 Dose: 125 mls/hr Documented by: Potassium Chloride/Sodium Chloride (Normal Saline With 40 Meq Kcl) 1,000 mls @ 125 mls/hr IV ASDIRECTED [facility] Last Admin: 12/25/20 11:27 Dose: 125 mls/hr Documented by: Magnesium Sulfate 2 gm/ Premix 50 mls @ 50 mls/hr IV ONETIME ONE Stop: 12/26/20 15:14 Last Admin: 12/26/20 14:32 Dose: 50 mls/hr Documented by: Lactated Ringer's (Ringers, Lactated) 1,000 mls @ 125 mls/hr IV ASDIRECTED [facility] Last Admin: 12/26/20 19:30 Dose: 125 mls/hr Documented by: Potassium Chloride 60 meq/ (Dextrose/Lactated Ringer's) 1,030 mls @ 125 mls/hr IV ONETIME [facility] Last Admin: 12/27/20 10:15 Dose: 125 mls/hr Documented by: Dextrose/Lactated Ringer's (Dextrose 5%-Lactated Ringers) 1,000 mls @ 125 mls/hr IV ASDIRECTED [facility] Last Admin: 12/29/20 05:53 Dose: 125 mls/hr Documented by: Iopamidol (Iopamidol 755 Mg/Ml 500 Ml Multipack Bottle) 100 ml IVPUSH ONETIME STA Stop: 12/24/20 18:56 Last Admin: 12/24/20 18:56 Dose: 100 ml Documented by: Iopamidol (Iopamidol 755 Mg/Ml 500 Ml Multipack Bottle) 100 ml IVPUSH ONETIME ONE Stop: 12/27/20 01:22 [facility]ISEL GRINDER Last Admin: 12/27/20 01:22 CDT Dose: 100 ml Documented by: Labetalol HCl (Labetalol 100 Mg/20 Ml Mdv) 10 mg IVPUSH ONETIME ONE; Protocol Stop: 12/27/20 21:06 Last Admin: 12/27/20 21:40 Dose: 10 mg Documented by: Labetalol HCl (Labetalol 100 Mg/20 Ml Mdv) 10 mg IVPUSH ONETIME ONE; Protocol Stop: 12/28/20 03:14 Last Admin: 12/28/20 03:26 Dose: 10 mg Documented by: Lisinopril (Lisinopril 5 Mg Tab) 5 mg PO DAILY [facility] Last Admin: 12/25/20 16:08 Dose: Not Given Documented by: Metoclopramide HCl (Metoclopramide 10 Mg/2 Ml Sdv) 10 mg IVPUSH ONETIME ONE Stop: 12/24/20 17:44 Last Admin: 12/24/20 17:50 Dose: 10 mg Documented by: Metoclopramide HCl (Metoclopramide 10 Mg/2 Ml Sdv) 10 mg IVPUSH Q6H PRN PRN Reason: Nausea/Vomiting Last Admin: 12/26/20 13:07 Dose: 10 mg Documented by: Potassium Chloride (Potassium Chloride 20 Meq Tab.Er) 40 meq PO ONETIME ONE Stop: 12/26/20 11:01 Last Admin: 12/26/20 11:50 Dose: Not Given Documented by: Promethazine HCl (Promethazine 25 Mg/Ml Sdv) 12.5 mg IM ONETIME ONE Stop: 12/26/20 18:57 Last Admin: 12/26/20 19:27 Dose: 12.5 mg Documented by: Sodium Chloride (Sodium Chloride 0.9% 10 Ml Syringe) 10 ml FLUSH ASDIRECTED PRN PRN Reason: Keep Vein Open Last Admin: 12/24/20 17:54 Dose: 10 ml Documented by: Sodium Chloride (Sodium Chloride 0.9% 2.5 Ml Syringe) 2.5 ml FLUSH ASDIRECTED PRN PRN Reason: Keep Vein Open Last Admin: 12/24/20 17:53 Dose: 2.5 ml Documented by: - Exam General: Alert, Oriented, Cooperative HEENT: Mucous Membr. Moist/[place] Neck: No: Lymphadenopathy Lungs: Clear to Auscultation, Normal Respiratory Effort Cardiovascular: Regular Rate, Regular Rhythm GI/Abdominal Exam: Normal Bowel Sounds, Tender - Patient Data Lab Results Last 24 hrs: Laboratory Results - last 24 hr 12/28/20 12/28/20 12/29/20 Range/Units 11:56 16:33 05:45 WBC 9.08 (4.0-11.0) K/uL RBC 4.00 L (4.30-5.90) M/uL Hgb 11.7 L (12.0-16.0) g/dL Hct 34.2 L (36.0-46.0) % MCV 85.5 (80.0-98.0) fL MCH 29.3 (27.0-32.0) pg MCHC 34.2 (31.0-37.0) g/dL RDW Std Deviation 40.2 (28.0-62.0) fl RDW Coeff of Brad 13 (11.0-15.0) % Plt Count 229 (150-400) K/uL MPV 10.00 (7.40-12.00) fL Neut % (Auto) 71.9 (48.0-80.0) % Lymph % (Auto) 19.5 (16.0-40.0) % [place] % (Auto) 7.0 (0.0-15.0) % Eos % (Auto) 1.4 (0.0-7.0) % Baso % (Auto) 0.2 (0.0-1.5) % Neut # (Auto) 6.5 H (1.4-5.7) K/uL Lymph # (Auto) 1.8 (0.6-2.4) K/uL [place] # (Auto) 0.6 (0.0-0.8) K/uL Eos # (Auto) 0.1 (0.0-0.7) K/uL Baso # (Auto) 0.0 (0.0-0.1) K/uL Nucleated RBC % 0.0 /100WBC Nucleated RBCs # 0 K/uL Sodium (136-145) mmol/L Potassium (3.5-5.1) mmol/L Chloride (98-107) mmol/L Carbon Dioxide (21.0-32.0) mmol/L BUN (7.0-18.0) mg/dL Creatinine (0.6-1.0) mg/dL Est Cr Clr Drug Dosing mL/min Estimated GFR (MDRD) ml/min Glucose (74-106) mg/dL POC Glucose 152 H 152 H (70-99) mg/dL Calcium (8.5-10.1) mg/dL Phosphorus (2.6-4.7) mg/dL Magnesium (1.8-2.4) mg/dL Total Bilirubin (0.2-1.0) mg/dL AST (15-37) IU/L ALT (14-63) IU/L Alkaline Phosphatase (46-116) U/L Total Protein (6.4-8.2) g/dL Albumin (3.4-5.0) g/dL Globulin (2.6-4.0) g/dL Albumin/Globulin Ratio (0.9-1.6) 12/29/20 12/29/20 Range/Units 05:45 06:23 WBC (4.0-11.0) K/uL RBC (4.30-5.90) M/uL Hgb (12.0-16.0) g/dL Hct (36.0-46.0) % MCV (80.0-98.0) fL MCH (27.0-32.0) pg MCHC (31.0-37.0) g/dL RDW Std Deviation (28.0-62.0) fl RDW Coeff of Brad (11.0-15.0) % Plt Count (150-400) K/uL MPV (7.40-12.00) fL Neut % (Auto) (48.0-80.0) % Lymph % (Auto) (16.0-40.0) % [place] % (Auto) (0.0-15.0) % Eos % (Auto) (0.0-7.0) % Baso % (Auto) (0.0-1.5) % Neut # (Auto) (1.4-5.7) K/uL Lymph # (Auto) (0.6-2.4) K/uL [place] # (Auto) (0.0-0.8) K/uL Eos # (Auto) (0.0-0.7) K/uL Baso # (Auto) (0.0-0.1) K/uL Nucleated RBC % /100WBC Nucleated RBCs # K/uL Sodium 139 (136-145) mmol/L Potassium 2.8 L (3.5-5.1) mmol/L Chloride 103 (98-107) mmol/L Carbon Dioxide 27.1 (21.0-32.0) mmol/L BUN 3 L (7.0-18.0) mg/dL Creatinine 0.6 (0.6-1.0) mg/dL Est Cr Clr Drug Dosing 71.14 mL/min Estimated GFR (MDRD) > 60.0 ml/min Glucose 171 H (74-106) mg/dL POC Glucose 143 H (70-99) mg/dL Calcium 8.2 L (8.5-10.1) mg/dL Phosphorus 3.4 (2.6-4.7) mg/dL Magnesium 1.9 (1.8-2.4) mg/dL Total Bilirubin 0.3 (0.2-1.0) mg/dL AST 14 L (15-37) IU/L ALT 15 (14-63) IU/L Alkaline Phosphatase 79 (46-116) U/L Total Protein 6.1 L (6.4-8.2) g/dL Albumin 2.9 L (3.4-5.0) g/dL Globulin 3.2 (2.6-4.0) g/dL Albumin/Globulin Ratio 0.9 (0.9-1.6) Result Diagrams: 12/29/20 05:45 12/29/20 05:45 Sepsis Event Note - Evaluation Sepsis Screening Result: No Definite Risk - Focused Exam Vital Signs: Vital Signs Temp Pulse Resp BP Pulse Ox 12/29/20 07:44 97.5 F 61 18 160/72 H 94 L 12/29/20 04:00 97.7 F 64 19 157/70 H 92 L 12/29/20 00:00 97.2 F 68 16 142/55 H 93 L - Problem List & Annotations (1) Enteritis SNOMED Code(s): 33439109 Code(s): K52.9 - NONINFECTIVE GASTROENTERITIS AND COLITIS, UNSPECIFIED Status: Acute Priority: Medium Current Visit: Yes (2) Diabetes SNOMED Code(s): 14051081 Code(s): E11.9 - TYPE 2 DIABETES MELLITUS WITHOUT COMPLICATIONS Status: Acute Current Visit: Yes (3) HTN (hypertension) SNOMED Code(s): 78037192 Code(s): I10 - ESSENTIAL (PRIMARY) HYPERTENSION Status: Acute Current Visit: Yes (4) Abdominal pain SNOMED Code(s): 48375225 Code(s): R10.9 - UNSPECIFIED ABDOMINAL PAIN Status: Acute Priority: Medium Current Visit: Yes Qualifiers: Abdominal location: generalized Qualified Code(s): R10.84 - Generalized abdominal pain (5) SBO (small bowel obstruction) SNOMED Code(s): 584384790 Code(s): K56.609 - UNSP INTESTNL OBST, UNSP TO PARTIAL VERSUS COMPLETE OBST Status: Acute Priority: Medium Current Visit: Yes - Problem List Review Problem List Initiated/Reviewed/Updated: Yes - My Orders Last 24 Hours: My Active Orders 12/28/20 13:02 Nasogastric Orogastric Tube Removal [OM.PC] Routine 12/29/20 09:15 Sodium Chloride 0.9% with KCl [Normal Saline with 40 mEq KCl] 1,000 ml IV ASDIRECTED - Assessment Assessment:: 1. Enteritis/partial small bowel obstruction -Continue with hydromorphone 1 mg IV every 3 hours for pain -Continue with Reglan 10 mg IV every 6 hours for vomiting -The patient is on a clear liquid diet and tolerating it well -Results pending for Shiga toxin, stool culture, Campylobacter, cryptosporidium, Giardia, and Salmonella antigen -Continue ciprofloxacin 400 mg IV every 12 hours and Flagyl 500 mg IV 4 times daily -Continue to monitor patient through daily CBC/CMP 2. Diabetes mellitus -The patient is on an insulin sliding scale/NovoLog -Continue to monitor patient's blood glucose through daily CMP 3. Hypertension -Continue lisinopril 5 mg per oral route 4. Hypokalemia -IV potassium chloride in normal saline at a rate of 100 mL/h has been initiated
[2020-12-29] MEDS: Labetalol 100 MG/20 ML MDV IVPUSH PRN (12:00)
[2020-12-29] MEDS: Calcium Carbonate 500 MG Tab.Chew PO PRN (13:52)
--- NOTE | 2020-12-29 16:40 | CR ---
INDICATION: Follow up SBO. TECHNIQUE: Upright AP view of the abdomen, 2 images. COMPARISON: 12/27/2020. FINDINGS: NG tube in the stomach, as before. Distended small bowel loops, somewhat decreased since the previous examination. No obvious free air. IMPRESSION : 1. NG tube in the stomach, as before. 2. Distended small bowel loops, somewhat decreased. Dictated by Ajith Jacome MD @ 12/29/2020 4:38:29 PM (Electronically Signed)
[2020-12-29] MEDS: Lisinopril 5 MG Tab PO SCH (20:22)
[2020-12-30] MEDS: Ciprofloxacin in D5W 400 MG in Premix Bag 1 BAG IV SCH ×2 (03:02)
[2020-12-30] MEDS: metroNIDAZOLE/Normal Saline 500 MG in Premix Bag 1 BAG IV SCH (06:24)
[2020-12-30 07:26] LABS: BLOOD UREA NITROGEN,BUN 4 mg/dL (7.0-18.0); CARBON DIOXIDE,CO2 26.7 mmol/L (21.0-32.0); CHLORIDE,CL 104 mmol/L (98-107); GLUCOSE RANDOM 147 mg/dL (74-106); POTASSIUM,K 3.5 mmol/L (3.5-5.1); SODIUM,NA 140 mmol/L (136-145)
[2020-12-30] MEDS: Insulin Aspart 100 Units/ML 3 ML Pen SUBCUT SCH (07:37)
[2020-12-30] MEDS: Labetalol 100 MG/20 ML MDV IVPUSH PRN (08:07)
[2020-12-30] MEDS: Pantoprazole 40 MG in Sodium Chloride 0.9% 10 ML IV SCH (08:19)
--- NOTE | 2020-12-30 10:50 | PCM.DCSUM1 ---
Discharge Summary - Hospital Course Free Text/Narrative:: The patient is a 70-year-old female, on day 7 of service, who has a significant past medical history of diabetes mellitus and hypertension, who was admitted to the medical floor due to enteritis and a partial small bowel obstruction. Throughout the patient's hospital course she was treated with two different antibiotics including IV ciprofloxacin and IV Flagyl in order to treat her enteritis. Upon discharge the patient will be sent home with oral formulations of both of these drugs to be taken for a 3 day course. She was also complaining of burning abdominal pain throughout her hospital course and will be sent home with calcium carbonate/Tums and pantoprazole. Upon imaging a partial small bowel obstruction was seen and she was placed on different diets including n.p.o., clear liquid diet, and soft diet. She also had an NG tube placed which was [place] patricia when she could have her diet progressed. She can currently eat without any issues and is having regular bowel movements which are darker than normal; nonetheless she did have a negative fecal occult blood test. She was followed by Dr. Nobles, surgeon here at the hospital who will also follow-up with her on an outpatient basis. The patient is to follow-up with her PCP Dr. Goldstein as well. The patient has been advised to return to the hospital if she experiences worsening abdominal pain, nausea, vomiting, or bloody stools. She has also been educated on being compliant with her medication and taking them at scheduled times. The patient is now stable and can be discharged home. - Discharge Data Discharge Date: 12/30/20 Discharge Disposition: Home, Self-Care 01 Condition: Stable - Referral to Home Health Primary Care Physician: PCP None - Discharge Diagnosis/Problem(s) (1) Enteritis SNOMED Code(s): 16798687 ICD Code: K52.9 - NONINFECTIVE GASTROENTERITIS AND COLITIS, UNSPECIFIED Status: Acute Priority: Medium Current Visit: Yes (2) Diabetes SNOMED Code(s): 56417946 ICD Code: E11.9 - TYPE 2 DIABETES MELLITUS WITHOUT COMPLICATIONS Status: Acute Current Visit: Yes (3) HTN (hypertension) SNOMED Code(s): 36807078 ICD Code: I10 - ESSENTIAL (PRIMARY) HYPERTENSION Status: Acute Current Visit: Yes (4) Abdominal pain SNOMED Code(s): 24452407 ICD Code: R10.9 - UNSPECIFIED ABDOMINAL PAIN Status: Acute Priority: Medium Current Visit: Yes Qualifiers: Abdominal location: generalized Qualified Code(s): R10.84 - Generalized abdominal pain (5) SBO (small bowel obstruction) SNOMED Code(s): 748005852 ICD Code: K56.609 - UNSP INTESTNL OBST, UNSP TO PARTIAL VERSUS COMPLETE OBST Status: Acute Priority: Medium Current Visit: Yes - Patient Summary/Data Consults: Consultations 12/27/20 09:09 Consult to Physician [CONS] Routine - Patient Instructions Diet: Regular Diet as Tolerated Activity: As Tolerated Showering/Bathing: May Shower Other/Special Instructions: -Return to the hospital if you experience worsening abdominal pain, nausea, vomiting, bloody stools. -Be compliant with your medication and take them at scheduled times. -Follow-up with your PCP Dr. Goldstein tomorrow 12/31/2020. -Follow-up with Dr. Nobles, surgeon - Discharge Plan Prescriptions/Med Rec: RX: Ciprofloxacin [Cipro XR] 750 mg PO DAILY #3 tab.er metroNIDAZOLE [Flagyl] 500 mg PO Q8H 3 Days #9 tab RX: Pantoprazole [ProTONIX] 40 mg PO BID #60 tab.cr RX: Calcium Carbonate [Tums] 500 mg PO Q2H PRN #30 tab.chew PRN Reason: Indigestion Home Medications: Home Meds RX: Empagliflozin [Jardiance] 10 mg PO DAILY 12/24/20 [History] RX: lisinopriL [Lisinopril] 2.5 mg PO DAILY 12/24/20 [History] RX: Rosuvastatin [Crestor] 10 mg PO BEDTIME 12/28/20 [History] RX: metFORMIN [Glucophage] 500 mg PO BIDMEALS 12/28/20 [History] RX: Calcium Carbonate [Tums] 500 mg PO Q2H PRN #30 tab.chew 12/30/20 [Rx] RX: Ciprofloxacin [Cipro XR] 750 mg PO DAILY #3 tab.er 12/30/20 [Rx] RX: Pantoprazole [ProTONIX] 40 mg PO BID #60 tab.cr 12/30/20 [Rx] metroNIDAZOLE [Flagyl] 500 mg PO Q8H 3 Days #9 tab 12/30/20 [Rx] Patient Handouts: Bowel Obstruction, [id number], Pantoprazole tablets, Calcium Carbonate chewable tablets, Ciprofloxacin tablets, Metronidazole tablets or capsules Referrals: Wale Nobles MD [Physician] - 01/06/21 10:15 am Ankush Goldstein MD [Physician] - 12/31/20 2:00 pm - Discharge Summary/Plan Comment DC Time >30 min.: Yes Total # of Minutes for Discharge Time: 35 minutes - Review of Systems General: Denies: Fever, Fatigue HEENT: Denies: Headaches, Sore Throat Pulmonary: Denies: Shortness of Breath, Cough Cardiovascular: Denies: Chest Pain, Palpitations Gastrointestinal: Denies: Abdominal Pain, Nausea, Vomiting Genitourinary: Denies: Dysuria - Patient Data Vitals - Most Recent: Last Vital Signs Temp 97.6 F 12/30/20 08:00 Pulse 65 12/30/20 08:00 Resp 16 12/30/20 08:00 BP 163/73 H 12/30/20 09:25 Pulse Ox 93 L 12/30/20 08:00 Weight - Most Recent: 166 lb 9.6 oz I&O - Last 24 hours: Intake & Output 12/29/20 12/30/20 12/30/20 22:59 06:59 14:59 Intake Total 1532 400 Output Total 0 650 Balance 1532 -250 Lab Results - Last 24 hrs: Laboratory Results - last 24 hr 12/29/20 12/29/20 12/29/20 Range/Units 11:40 13:50 18:00 WBC (4.0-11.0) K/uL RBC (4.30-5.90) M/uL Hgb (12.0-16.0) g/dL Hct (36.0-46.0) % MCV (80.0-98.0) fL MCH (27.0-32.0) pg MCHC (31.0-37.0) g/dL RDW Std Deviation (28.0-62.0) fl RDW Coeff of Brad (11.0-15.0) % Plt Count (150-400) K/uL MPV (7.40-12.00) fL Neut % (Auto) (48.0-80.0) % Lymph % (Auto) (16.0-40.0) % [place] % (Auto) (0.0-15.0) % Eos % (Auto) (0.0-7.0) % Baso % (Auto) (0.0-1.5) % Neut # (Auto) (1.4-5.7) K/uL Lymph # (Auto) (0.6-2.4) K/uL [place] # (Auto) (0.0-0.8) K/uL Eos # (Auto) (0.0-0.7) K/uL Baso # (Auto) (0.0-0.1) K/uL Nucleated RBC % /100WBC Nucleated RBCs # K/uL Sodium (136-145) mmol/L Potassium (3.5-5.1) mmol/L Chloride (98-107) mmol/L Carbon Dioxide (21.0-32.0) mmol/L BUN (7.0-18.0) mg/dL Creatinine (0.6-1.0) mg/dL Est Cr Clr Drug Dosing mL/min Estimated GFR (MDRD) ml/min Glucose (74-106) mg/dL POC Glucose 161 H 141 H 144 H (70-99) mg/dL Calcium (8.5-10.1) mg/dL 12/30/20 12/30/20 12/30/20 Range/Units 06:10 06:11 06:11 WBC 9.69 (4.0-11.0) K/uL RBC 4.12 L (4.30-5.90) M/uL Hgb 11.9 L (12.0-16.0) g/dL Hct 35.4 L (36.0-46.0) % MCV 85.9 (80.0-98.0) fL MCH 28.9 (27.0-32.0) pg MCHC 33.6 (31.0-37.0) g/dL RDW Std Deviation 40.4 (28.0-62.0) fl RDW Coeff of Brad 13 (11.0-15.0) % Plt Count 275 (150-400) K/uL MPV 9.80 (7.40-12.00) fL Neut % (Auto) 73.2 (48.0-80.0) % Lymph % (Auto) 18.5 (16.0-40.0) % [place] % (Auto) 6.8 (0.0-15.0) % Eos % (Auto) 1.3 (0.0-7.0) % Baso % (Auto) 0.2 (0.0-1.5) % Neut # (Auto) 7.1 H (1.4-5.7) K/uL Lymph # (Auto) 1.8 (0.6-2.4) K/uL [place] # (Auto) 0.7 (0.0-0.8) K/uL Eos # (Auto) 0.1 (0.0-0.7) K/uL Baso # (Auto) 0.0 (0.0-0.1) K/uL Nucleated RBC % 0.0 /100WBC Nucleated RBCs # 0 K/uL Sodium 140 (136-145) mmol/L Potassium 3.5 (3.5-5.1) mmol/L Chloride 104 (98-107) mmol/L Carbon Dioxide 26.7 (21.0-32.0) mmol/L BUN 4 L (7.0-18.0) mg/dL Creatinine 0.5 L (0.6-1.0) mg/dL Est Cr Clr Drug Dosing 85.37 mL/min Estimated GFR (MDRD) > 60.0 ml/min Glucose 147 H (74-106) mg/dL POC Glucose 134 H (70-99) mg/dL Calcium 8.9 (8.5-10.1) mg/dL NEY Results - Last 24 hrs: Microbiology 12/30/20 09:15 Stool Occult Blood (NEY) - Final Stool / Feces NEGATIVE OCCULT BLOOD REFERENCE RANGE: NEGATIVE Med Orders - Current: Current Medications Calcium Carbonate/Glycine (Calcium Carbonate 500 Mg Tab.Chew) 500 mg PO Q2H PRN PRN Reason: Indigestion Last Admin: 12/29/20 13:52 Dose: 500 mg Documented by: Dextrose/Water (50% Dextrose In Water 50 Ml Syringe) 50 ml IVPUSH ASDIRECTED PRN PRN Reason: Hypoglycemia Glucagon (Glucagon,Human Recombinant 1 Mg Vial) 1 mg IM ASDIRECTED PRN PRN Reason: Hypoglycemia Hydromorphone HCl (Hydromorphone 1 Mg/Ml Syringe) 1 mg IVPUSH Q3H PRN PRN Reason: Pain Pantoprazole Sodium 40 mg/ (Sodium Chloride) 10 mls @ 300 mls/hr IV DAILY [facility] Last Admin: 12/30/20 08:19 Dose: 300 mls/hr Documented by: Ciprofloxacin/Dextrose 400 mg/ (Premix) 200 mls @ 200 mls/hr IV Q12H [facility] Last Admin: 12/30/20 03:02 Dose: 200 mls/hr Documented by: Metronidazole 500 mg/ Premix 100 mls @ 100 mls/hr IV QID [facility] Last Admin: 12/30/20 06:24 Dose: 100 mls/hr Documented by: Insulin Aspart (Insulin Aspart 100 Units/Ml 3 Ml Pen) 0 unit SUBCUT TIDAC [facility]; Protocol Last Admin: 12/30/20 07:37 Dose: Not Given Documented by: Labetalol HCl (Labetalol 100 Mg/20 Ml Mdv) 10 mg IVPUSH Q4H PRN; Protocol PRN Reason: Hypertension Last Admin: 12/30/20 08:07 Dose: 10 mg Documented by: Lisinopril (Lisinopril 5 Mg Tab) 5 mg PO BEDTIME [facility] Last Admin: 12/29/20 20:22 Dose: 5 mg Documented by: Metoclopramide HCl (Metoclopramide 10 Mg/2 Ml Sdv) 10 mg IVPUSH Q4H PRN PRN Reason: Nausea/Vomiting Last Admin: 12/26/20 17:46 Dose: 10 mg Documented by: Discontinued Medications Hydromorphone HCl (Hydromorphone 2 Mg/Ml Syringe) 1 mg IVPUSH ONETIME ONE Stop: 12/24/20 17:43 Last Admin: 12/24/20 17:52 Dose: 1 mg Documented by: Sodium Chloride (Normal Saline) 1,000 mls @ 1,000 mls/hr IV .Bolus ONE Stop: 12/24/20 18:41 Last Admin: 12/24/20 17:54 Dose: 1,000 mls/hr Documented by: Sodium Chloride (Normal Saline) 1,000 mls @ 100 mls/hr IV .Bolus ONE Stop: 12/25/20 06:16 Last Admin: 12/24/20 21:11 Dose: 100 mls/hr Documented by: Sodium Chloride (Normal Saline) 1,000 mls @ 125 mls/hr IV ASDIRECTED [facility] Last Admin: 12/26/20 13:08 Dose: 125 mls/hr Documented by: Potassium Chloride/Sodium Chloride (Normal Saline With 40 Meq Kcl) 1,000 mls @ 125 mls/hr IV ASDIRECTED [facility] Last Admin: 12/25/20 11:27 Dose: 125 mls/hr Documented by: Magnesium Sulfate 2 gm/ Premix 50 mls @ 50 mls/hr IV ONETIME ONE Stop: 12/26/20 15:14 Last Admin: 12/26/20 14:32 Dose: 50 mls/hr Documented by: Lactated Ringer's (Ringers, Lactated) 1,000 mls @ 125 mls/hr IV ASDIRECTED [facility] Last Admin: 12/26/20 19:30 Dose: 125 mls/hr Documented by: Potassium Chloride 60 meq/ (Dextrose/Lactated Ringer's) 1,030 mls @ 125 mls/hr IV ONETIME [facility] Last Admin: 12/27/20 10:15 Dose: 125 mls/hr Documented by: Dextrose/Lactated Ringer's (Dextrose 5%-Lactated Ringers) 1,000 mls @ 125 mls/hr IV ASDIRECTED [facility] Last Admin: 12/29/20 05:53 Dose: 125 mls/hr Documented by: Potassium Chloride/Sodium Chloride (Normal Saline With 40 Meq Kcl) 1,000 mls @ 100 mls/hr IV ASDIRECTED [facility] Stop: 12/30/20 19:14 Last Admin: 12/29/20 10:02 Dose: 100 mls/hr Documented by: Potassium Chloride/Sodium Chloride (Normal Saline With 40 Meq Kcl) 1,000 mls @ 100 mls/hr IV Q10H [facility] Stop: 12/30/20 05:59 Last Admin: 12/29/20 23:29 Dose: 100 mls/hr Documented by: Iopamidol (Iopamidol 755 Mg/Ml 500 Ml Multipack Bottle) 100 ml IVPUSH ONETIME STA Stop: 12/24/20 18:56 Last Admin: 12/24/20 18:56 Dose: 100 ml Documented by: Iopamidol (Iopamidol 755 Mg/Ml 500 Ml Multipack Bottle) 100 ml IVPUSH ONETIME ONE Stop: 12/27/20 01:22 [employer]UC[employer]IST Last Admin: 12/27/20 01:22 CDT Dose: 100 ml Documented by: Labetalol HCl (Labetalol 100 Mg/20 Ml Mdv) 10 mg IVPUSH ONETIME ONE; Protocol Stop: 12/27/20 21:06 Last Admin: 12/27/20 21:40 Dose: 10 mg Documented by: Labetalol HCl (Labetalol 100 Mg/20 Ml Mdv) 10 mg IVPUSH ONETIME ONE; Protocol Stop: 12/28/20 03:14 Last Admin: 12/28/20 03:26 Dose: 10 mg Documented by: Lisinopril (Lisinopril 5 Mg Tab) 5 mg PO DAILY [facility] Last Admin: 12/25/20 16:08 Dose: Not Given Documented by: Metoclopramide HCl (Metoclopramide 10 Mg/2 Ml Sdv) 10 mg IVPUSH ONETIME ONE Stop: 12/24/20 17:44 Last Admin: 12/24/20 17:50 Dose: 10 mg Documented by: Metoclopramide HCl (Metoclopramide 10 Mg/2 Ml Sdv) 10 mg IVPUSH Q6H PRN PRN Reason: Nausea/Vomiting Last Admin: 12/26/20 13:07 Dose: 10 mg Documented by: Potassium Chloride (Potassium Chloride 20 Meq Tab.Er) 40 meq PO ONETIME ONE Stop: 12/26/20 11:01 Last Admin: 12/26/20 11:50 Dose: Not Given Documented by: Promethazine HCl (Promethazine 25 Mg/Ml Sdv) 12.5 mg IM ONETIME ONE Stop: 12/26/20 18:57 Last Admin: 12/26/20 19:27 Dose: 12.5 mg Documented by: Sodium Chloride (Sodium Chloride 0.9% 10 Ml Syringe) 10 ml FLUSH ASDIRECTED PRN PRN Reason: Keep Vein Open Last Admin: 12/24/20 17:54 Dose: 10 ml Documented by: Sodium Chloride (Sodium Chloride 0.9% 2.5 Ml Syringe) 2.5 ml FLUSH ASDIRECTED PRN PRN Reason: Keep Vein Open Last Admin: 12/24/20 17:53 Dose: 2.5 ml Documented by: - Exam General: Reports: Alert, Oriented, Cooperative HEENT: Reports: Mucous Membr. Moist/[place] Neck: Denies: Lymphadenopathy Lungs: Reports: Clear to Auscultation, Normal Respiratory Effort Cardiovascular: Reports: Regular Rate, Regular Rhythm GI/Abdominal Exam: Normal Bowel Sounds, Soft, Non-Tender
[2020-12-30] MEDS: Calcium Carbonate 500 MG Tab.Chew PO PRN (11:04)
== END 2020-12-30 12:15 | disposition home or self-care (01) | DRG 392 ==
LOC: MW.ED 17:23 → MW.MS 20:05 → OBSVTOIN 12-27 09:01 → MW.MS 12-27 09:55
PROVIDERS: ADMIT Internal Medicine; ATTEND Internal Medicine
DX: K56.609 Unspecified intestinal obstruction, unspecified as to partial versus complete obstruction (principal); K52.9 Noninfective gastroenteritis and colitis, unspecified; R10.84 Generalized abdominal pain; K56.600 Partial intestinal obstruction, unspecified as to cause; K56.7 Ileus, unspecified; H35.30 Unspecified macular degeneration; E11.9 Type 2 diabetes mellitus without complications; I10 Essential (primary) hypertension; H91.90 Unspecified hearing loss, unspecified ear; K57.90 Diverticulosis of intestine, part unspecified, without perforation or abscess without bleeding; E87.6 Hypokalemia; E83.42 Hypomagnesemia; Z20.822 Contact with and (suspected) exposure to COVID-19; Z88.2 Allergy status to sulfonamides; Z88.5 Allergy status to narcotic agent; Z88.8 Allergy status to other drugs, medicaments and biological substances; Z90.49 Acquired absence of other specified parts of digestive tract; Z90.710 Acquired absence of both cervix and uterus
CPT/HCPCS: 36415 ×4; 74018; 74177 ×2; 80053 ×4; 81003; 82947 ×8; 83605; 83690; 83735; 84100; 85025 ×4; 87045; 87046; 87324; 87449; 87899; 96374; 96375; 99285; A9270 ×3; C9113; J0744 ×2; J1170; J1815; J2550; J2765 ×4; J3475; J3480; J3490 ×3; J7030 ×6; J7120; Q9967 ×2; U0002; 80048; 82272; 87328; 87329; 96365; 96366; 96367; 96376; G0378; J7121